=== PATIENT | female | born 1975 | race Caucasian/White ===

== ENCOUNTER 2019-02-25 21:31 | Inpatient (IN) | payer MEDICARE, MEDICAID ==
[~2019-02-25] VITALS: Ht 170.2 cm; Wt 74.3 kg
[2019-02-25 21:30] VITALS: BP 133/81
[~2019-02-25 21:31] MED LIST: AMLO-511 PO; ATOR20TA86 PO; CARV12 PO; CINA30 PO; DSS100 PO; FOLI0.8T2 PO; HYDR-4455 PO; LEVO100 PO; OMEP20 PO; ONDA4 PO; SEVEC800 PO; SUCR1TAB PO
[2019-02-26] MEDS ORDERED: HYDROmorphone HCL 2 MG TABLET PO PRN (01:00)
[2019-02-26] MEDS ORDERED: MAGNESIUM HYDROXIDE SUSPENSION 30 ML UDCUP PO PRN (01:00)
[2019-02-26] MEDS ORDERED: ACETAMINOPHEN 325 MG TABLET PO PRN ×2 (01:00→07:30)
[2019-02-26] MEDS: ONDANSETRON HCL 4 MG/2 ML VIAL IVP PRN ×3 (01:05→20:05)
[2019-02-26 03:54] VITALS: BP 129/57
[2019-02-26] MEDS: HYDROmorphone 2 MG/ML SYRINGE IVP PRN ×3 (06:55→20:05)
[2019-02-26] MEDS ORDERED: BISACODYL 10 MG RECTAL RECTAL SUPPOSITORY PR PRN (07:30)
[2019-02-26] MEDS ORDERED: ZOLPIDEM TARTRATE 5 MG TABLET PO PRN (07:30)
[2019-02-26] MEDS ORDERED: OxyCODONE HCL/ACETAMINOPHEN 5-325 MG TABLET PO PRN (07:30)
[2019-02-26] MEDS ORDERED: ALBUTEROL SULFATE 2.5 MG/0.5 ML NEB SOLUTION NEB PRN (07:30)
[2019-02-26] MEDS ORDERED: IPRATROPIUM BROMIDE 0.5 MG/2.5 ML NEB SOLUTION NEB PRN (07:30)
[2019-02-26 07:40] VITALS: BP 105/50
[2019-02-26 08:19] LABS: GLUCOMETER DEV NAME(LOC) 5N.1; GLUCOSE,POINT OF CARE 98 MG/DL (70-110)
[2019-02-26 08:35] LABS: BASOPHILS % (AUTO) 1.1 % (0.0-2.0); HEMATOCRIT 34.1 % (36-46); HEMOGLOBIN 11.6 g/dL (12.0-16.0); LYMPHOCYTES # (AUTO) 0.9 K/uL (1.0-4.8); LYMPHOCYTES % (AUTO) 21.7 % (22.0-44.0); MEAN CORPUSCULAR HGB CONC 34.1 G/dL (31.0-37.0); MEAN CORPUSCULAR VOLUME 94 fL (80-100); MONOCYTES # (AUTO) 0.5 K/uL (0.1-1.0); NEUTROPHILS # (AUTO) 2.7 K/uL (1.8-7.7); NEUTROPHILS % (AUTO) 63.2 % (40.0-70.0); PLATELET COUNT (AUTO) 100 K/uL (150-450); RED BLOOD CELL COUNT(AUTO) 3.63 MIL/uL (4.00-5.20); RED CELL DISTRIBUTION WIDTH 14.5 % (11.5-14.5)
[2019-02-26 08:52] LABS: ALBUMIN 3.2 g/dL (3.4-5.0); BILIRUBIN,TOTAL 0.7 mg/dL (0.1-1.0); CREATININE 8.12 mg/dL (0.60-1.30); MAGNESIUM 1.8 mg/dL (1.80-2.40); PHOSPHORUS 4.3 mg/dL (2.5-4.9); POTASSIUM 4.4 mmol/L (3.5-5.1); TOTAL PROTEIN, SERUM 7.4 g/dL (6.4-8.2)
[2019-02-26] MEDS: CARVEDILOL 12.5 MG TABLET PO SCH ×2 (09:00→20:03)
[2019-02-26] MEDS ORDERED: HEPARIN SODIUM,PORCINE 5,000 UNITS/ML VIAL SQ SCH (09:00)
[2019-02-26] MEDS: AmLODIPine BESYLATE 5 MG TABLET PO SCH (09:00)
[2019-02-26] MEDS: DOCUSATE SODIUM 100 MG CAPSULE PO SCH ×2 (09:33→20:04)
[2019-02-26] MEDS: SUCRALFATE 1 GM TABLET PO SCH ×4 (09:33→20:03)
[2019-02-26] MEDS: FAMOTIDINE 20 MG TABLET PO SCH (09:33)
[2019-02-26] MEDS: VITAMIN B COMP/VIT C/FOLIC ACID CAPSULE PO SCH (09:38)
[2019-02-26] MEDS ORDERED: PARICALCITOL 5 MCG/1 ML VIAL IVP SCH (12:00)
[2019-02-26 12:02] VITALS: BP 110/54
[2019-02-26] MEDS: SEVELAMER CARBONATE 800 MG TABLET PO SCH ×2 (12:19→17:39)
[2019-02-26] MEDS: POLYETHYLENE GLYCOL 3350 17 GM PACKET PO SCH (15:22)
[2019-02-26 15:45] VITALS: BP 117/57
[2019-02-26 19:51] VITALS: BP 126/68
[2019-02-26] MEDS ORDERED: ATORVASTATIN CALCIUM 20 MG TABLET PO SCH (21:00)
[2019-02-27 00:21] VITALS: BP 123/66
[2019-02-27 04:27] VITALS: BP 119/57
[2019-02-27 06:30] LABS: EOSINOPHILS % (AUTO) 3.3 % (1.0-6.0); HEMATOCRIT 32.2 % (36-46); HEMOGLOBIN 11.2 g/dL (12.0-16.0); LYMPHOCYTES % (AUTO) 17.7 % (22.0-44.0); MEAN CORPUSCULAR HEMOGLOBIN 32.4 pg (26.0-34.0); MEAN CORPUSCULAR HGB CONC 34.7 G/dL (31.0-37.0); MEAN CORPUSCULAR VOLUME 93 fL (80-100); MONOCYTES # (AUTO) 0.5 K/uL (0.1-1.0); MONOCYTES % (AUTO) 8.5 % (2.0-9.0); NEUTROPHILS # (AUTO) 3.8 K/uL (1.8-7.7); NEUTROPHILS % (AUTO) 69.5 % (40.0-70.0); RED BLOOD CELL COUNT(AUTO) 3.46 MIL/uL (4.00-5.20); RED CELL DISTRIBUTION WIDTH 14.1 % (11.5-14.5)
[2019-02-27] MEDS ORDERED: LEVOTHYROXINE SODIUM 100 MCG TABLET PO SCH (06:30)
[2019-02-27 06:48] LABS: ALBUMIN 3.1 g/dL (3.4-5.0); BILIRUBIN,TOTAL 0.8 mg/dL (0.1-1.0); CALCIUM, TOTAL 7.7 mg/dL (8.8-10.5); CREATININE 10.59 mg/dL (0.60-1.30); PHOSPHORUS 4.3 mg/dL (2.5-4.9); POTASSIUM 5.2 mmol/L (3.5-5.1); TOTAL PROTEIN, SERUM 7.2 g/dL (6.4-8.2)
[2019-02-27 07:32] LABS: PLATELET COUNT (AUTO) 91 K/uL (150-450); PLATELET MORPHOLOGY COMMENT LARGE PLTS PRESENT
[2019-02-27 07:33] VITALS: BP 121/70
[2019-02-27] MEDS: DOCUSATE SODIUM 100 MG CAPSULE PO SCH (07:41)
[2019-02-27] MEDS: POLYETHYLENE GLYCOL 3350 17 GM PACKET PO SCH (07:41)
[2019-02-27] MEDS ORDERED: CINACALCET HCL 30 MG TABLET PO SCH (08:00)
[2019-02-27] MEDS: HYDROmorphone 2 MG/ML SYRINGE IVP PRN (08:51)
[2019-02-27] MEDS: AmLODIPine BESYLATE 5 MG TABLET PO SCH (08:52)
[2019-02-27] MEDS: SUCRALFATE 1 GM TABLET PO SCH ×3 (08:52→15:47)
[2019-02-27] MEDS: VITAMIN B COMP/VIT C/FOLIC ACID CAPSULE PO SCH (08:52)
[2019-02-27] MEDS: CARVEDILOL 12.5 MG TABLET PO SCH (08:56)
[2019-02-27] MEDS: FAMOTIDINE 20 MG TABLET PO SCH (08:59)
[2019-02-27] MEDS ORDERED: PARICALCITOL 5 MCG/1 ML VIAL IVP SCH (09:00)
[2019-02-27] MEDS: ONDANSETRON HCL 4 MG/2 ML VIAL IVP PRN (09:00)
[2019-02-27] MEDS: SEVELAMER CARBONATE 800 MG TABLET PO SCH ×3 (09:00→18:00)
[2019-02-27 11:34] VITALS: BP 99/59
[2019-02-27] MEDS ORDERED: LIDOCAINE/PF 1% 2 ML VIAL IM ONE (19:24)
== END 2019-02-27 19:25 | disposition home or self-care (01) | DRG 760 ==
LOC: 5N 21:35
PROVIDERS: ADMIT Internal Medicine; ATTEND Internal Medicine
PROC: 5A1D70Z Performance of Urinary Filtration, Intermittent, Less than 6 Hours Per Day (ICD-10-PCS; principal; 2019-02-27)
DX: N93.9 Abnormal uterine and vaginal bleeding, unspecified (principal); N18.6 End stage renal disease; I13.2 Hypertensive heart and chronic kidney disease with heart failure and with stage 5 chronic kidney disease, or end stage renal disease; N02.9 Recurrent and persistent hematuria with unspecified morphologic changes; N12 Tubulo-interstitial nephritis, not specified as acute or chronic; E46 Unspecified protein-calorie malnutrition; E87.1 Hypo-osmolality and hyponatremia; R64 Cachexia; N25.81 Secondary hyperparathyroidism of renal origin; O03.83 Metabolic disorder following complete or unspecified spontaneous abortion; K21.9 Gastro-esophageal reflux disease without esophagitis; E78.5 Hyperlipidemia, unspecified; E03.9 Hypothyroidism, unspecified; E83.51 Hypocalcemia; D63.8 Anemia in other chronic diseases classified elsewhere; E87.5 Hyperkalemia; D25.9 Leiomyoma of uterus, unspecified; E83.39 Other disorders of phosphorus metabolism; F41.9 Anxiety disorder, unspecified; F91.9 Conduct disorder, unspecified; G47.00 Insomnia, unspecified; G89.4 Chronic pain syndrome; I50.9 Heart failure, unspecified; R62.7 Adult failure to thrive; Z82.49 Family history of ischemic heart disease and other diseases of the circulatory system; Z82.71 Family history of polycystic kidney; Z87.440 Personal history of urinary (tract) infections; Z99.2 Dependence on renal dialysis
CPT/HCPCS: 83735; 84100; 87081; 87340; G0378; J1170; J1644; J2405; J2501; J3490

== ENCOUNTER 2019-05-21 10:44 | Emergency (ER) | payer MEDICARE, MEDICAID ==
[~2019-05-21] VITALS: Ht 170.2 cm; Wt 75.0 kg
[~2019-05-21 10:44] MED LIST changes: -AMLO-511 PO; +AMLO5TAB9 PO; -CINA30 PO; -HYDR-4455 PO; -ONDA4 PO; +SEVE800T17 PO; -SEVEC800 PO; -SUCR1TAB PO
[2019-05-21 13:42] LABS: BASOPHILS % (AUTO) 1.1 % (0.0-2.0); EOSINOPHILS % (AUTO) 3.1 % (1.0-6.0); HEMATOCRIT 35.4 % (36-46); LYMPHOCYTES # (AUTO) 1.4 K/uL (1.0-4.8); LYMPHOCYTES % (AUTO) 20.9 % (22.0-44.0); MEAN CORPUSCULAR HEMOGLOBIN 33.5 pg (26.0-34.0); MEAN CORPUSCULAR HGB CONC 33.8 G/dL (31.0-37.0); MEAN CORPUSCULAR VOLUME 99 fL (80-100); MONOCYTES # (AUTO) 0.5 K/uL (0.1-1.0); MONOCYTES % (AUTO) 8.1 % (2.0-9.0); NEUTROPHILS # (AUTO) 4.4 K/uL (1.8-7.7); NEUTROPHILS % (AUTO) 66.8 % (40.0-70.0); PLATELET COUNT (AUTO) 209 K/uL (150-450); RED BLOOD CELL COUNT(AUTO) 3.57 MIL/uL (4.00-5.20); RED CELL DISTRIBUTION WIDTH 14.9 % (11.5-14.5)
[2019-05-21 13:43] LABS: ANION GAP 6 mmol/L (8-16); CALCIUM, TOTAL 9.3 mg/dL (8.8-10.5); CARBON DIOXIDE 35 mmol/L (22-29); CHLORIDE 95 mmol/L (98-107); GLOMERULAR FILTR. RATE CALC 5 mL/min (>60); GLUCOSE,RANDOM 97 mg/dL (70-110); POTASSIUM 4.2 mmol/L (3.5-5.1); SODIUM SERUM 136 mmol/L (136-145); UREA NITROGEN, BLOOD 31 mg/dL (7-18)
[2019-05-21 13:51] LABS: HCG,QUANTITATIVE < 1 mIU/mL (0-6)
[2019-05-21 17:05] LABS: APPEARANCE,URINE TURBID (CLEAR); GLUCOSE, URINE (UA) NEGATIVE (NEGATIVE); KETONES,URINE 40 mg/dL (NEGATIVE); LEUKOCYTE ESTERASE ,URINE LARGE (NEGATIVE); NITRATE,URINE POSITIVE (NEGATIVE); OCCULT BLOOD,URINE LARGE (NEGATIVE); PH,URINE 7.5 (5.0-8.0); PROTEIN,URINE SEE CONFIRM (NEGATIVE)
[2019-05-21 17:10] LABS: BILIRUBIN,URINE PRELIM. POSITIVE (NEGATIVE)
[2019-05-21 17:11] LABS: SULFOSALICYLIC ACID,URINE 4+ (Negative)
[2019-05-21 17:13] LABS: RBC,URINE Full Field /HPF (0-2)
[2019-05-21 17:15] LABS: BACTERIA,URINE Moderate /HPF (None Seen); SQUAMOUS EPITHELIAL CELL,UR Moderate /LPF (None Seen)
[2019-05-21 17:23] VITALS: BP 143/80
== END 2019-05-21 17:31 | disposition home or self-care (01) ==
LOC: EMS 10:45
DX: N39.0 Urinary tract infection, site not specified (principal); N39.43 Post-void dribbling; R31.0 Gross hematuria; E11.22 Type 2 diabetes mellitus with diabetic chronic kidney disease; I12.0 Hypertensive chronic kidney disease with stage 5 chronic kidney disease or end stage renal disease; N18.6 End stage renal disease; Z99.2 Dependence on renal dialysis; Z79.899 Other long term (current) drug therapy; Z88.5 Allergy status to narcotic agent; Z91.013 Allergy to seafood
CPT/HCPCS: 51701; 51702; 74176; 87086

== ENCOUNTER 2019-08-06 14:12 | Emergency (ER) | payer MEDICARE, MEDICAID ==
[~2019-08-06] VITALS: Ht 175.3 cm; Wt 80.0 kg
[2019-08-06 14:18] VITALS: BP 158/86
[2019-08-06 15:09] LABS: BASOPHILS % (AUTO) 1.4 % (0.0-2.0); EOSINOPHILS % (AUTO) 3.5 % (1.0-6.0); HEMATOCRIT 30.1 % (36-46); HEMOGLOBIN 10.4 g/dL (12.0-16.0); LYMPHOCYTES # (AUTO) 1.2 K/uL (1.0-4.8); LYMPHOCYTES % (AUTO) 28.9 % (22.0-44.0); MEAN CORPUSCULAR HEMOGLOBIN 33.6 pg (26.0-34.0); MEAN CORPUSCULAR HGB CONC 34.4 G/dL (31.0-37.0); MEAN CORPUSCULAR VOLUME 98 fL (80-100); MONOCYTES # (AUTO) 0.3 K/uL (0.1-1.0); MONOCYTES % (AUTO) 7.4 % (2.0-9.0); NEUTROPHILS # (AUTO) 2.4 K/uL (1.8-7.7); NEUTROPHILS % (AUTO) 58.8 % (40.0-70.0); PLATELET COUNT (AUTO) 155 K/uL (150-450); RED BLOOD CELL COUNT(AUTO) 3.08 MIL/uL (4.00-5.20)
[2019-08-06 15:18] LABS: ANION GAP 6 mmol/L (8-16); CALCIUM, TOTAL 8.5 mg/dL (8.8-10.5); CARBON DIOXIDE 33 mmol/L (22-29); CHLORIDE 100 mmol/L (98-107); GLOMERULAR FILTR. RATE CALC 6 mL/min (>60); GLUCOSE,RANDOM 94 mg/dL (70-110); POTASSIUM 4.3 mmol/L (3.5-5.1); SODIUM SERUM 139 mmol/L (136-145); UREA NITROGEN, BLOOD 26 mg/dL (7-18)
[2019-08-06 15:32] LABS: ALANINE AMINOTRANSFERASE 16 U/L (12-78); ALBUMIN 3.3 g/dL (3.4-5.0); ALKALINE PHOSPHATASE 76 U/L (46-116); ASPARTATE AMINOTRANSFERASE 21 U/L (15-37); BILIRUBIN,TOTAL 0.5 mg/dL (0.1-1.0); HCG,QUANTITATIVE < 1 mIU/mL (0-6); LIPASE 239 U/L (73-393); TOTAL PROTEIN, SERUM 7.5 g/dL (6.4-8.2)
== END 2019-08-06 17:30 | disposition left against medical advice (07) ==
LOC: EMS 14:15
DX: R07.89 Other chest pain (principal); Z53.21 Procedure and treatment not carried out due to patient leaving prior to being seen by health care provider
CPT/HCPCS: 93005

== ENCOUNTER 2019-09-10 13:36 | Inpatient (IN) | payer MEDICARE, MEDICAID ==
[~2019-09-10] VITALS: Ht 170.2 cm; Wt 78.0 kg
[2019-09-10 14:30] LABS: CALCIUM, TOTAL 8.5 mg/dL (8.8-10.5); CREATININE 13.42 mg/dL (0.60-1.30); POTASSIUM 5.3 mmol/L (3.5-5.1)
[2019-09-10 14:36] LABS: ALBUMIN 3.3 g/dL (3.4-5.0); BILIRUBIN,TOTAL 0.5 mg/dL (0.1-1.0); TOTAL PROTEIN, SERUM 7.3 g/dL (6.4-8.2)
[2019-09-10 14:44] LABS: EOSINOPHILS % (AUTO) 3.4 % (1.0-6.0); HEMATOCRIT 31.2 % (36-46); HEMOGLOBIN 10.8 g/dL (12.0-16.0); LYMPHOCYTES # (AUTO) 1.1 K/uL (1.0-4.8); LYMPHOCYTES % (AUTO) 20.2 % (22.0-44.0); MEAN CORPUSCULAR HEMOGLOBIN 33.8 pg (26.0-34.0); MEAN CORPUSCULAR HGB CONC 34.6 G/dL (31.0-37.0); MEAN CORPUSCULAR VOLUME 98 fL (80-100); MONOCYTES # (AUTO) 0.4 K/uL (0.1-1.0); NEUTROPHILS # (AUTO) 3.7 K/uL (1.8-7.7); NEUTROPHILS % (AUTO) 68.4 % (40.0-70.0); PLATELET COUNT (AUTO) 167 K/uL (150-450); RED BLOOD CELL COUNT(AUTO) 3.19 MIL/uL (4.00-5.20); RED CELL DISTRIBUTION WIDTH 13.9 % (11.5-14.5)
[2019-09-10] MEDS ORDERED: ONDANSETRON HCL 4 MG/2 ML VIAL IVP ONE (15:00)
[2019-09-10] MEDS ORDERED: ACETAMINOPHEN 500 MG TABLET PO ONE (15:00)
[2019-09-10] MEDS ORDERED: ONDANSETRON HCL 4 MG/2 ML VIAL IVP PRN (15:45)
[2019-09-10] MEDS ORDERED: ACETAMINOPHEN 325 MG TABLET PO PRN ×2 (15:45→20:15)
[2019-09-10] MEDS ORDERED: SODIUM CHLORIDE 0.9% 1,000 ML ONE ×2 (17:46→17:47)
[2019-09-10 19:54] LABS: GLUCOMETER DEV NAME(LOC) 5N.1; GLUCOSE,POINT OF CARE 124 MG/DL (70-110)
[2019-09-10] MEDS ORDERED: BISACODYL 10 MG RECTAL RECTAL SUPPOSITORY PR PRN (20:15)
[2019-09-10] MEDS ORDERED: MAGNESIUM HYDROXIDE SUSPENSION 30 ML UDCUP PO PRN (20:15)
[2019-09-10] MEDS ORDERED: LORazepam 2 MG/ML VIAL IVP PRN (20:15)
[2019-09-10] MEDS ORDERED: ZOLPIDEM TARTRATE 5 MG TABLET PO PRN (20:15)
[2019-09-10] MEDS ORDERED: DiphenhydrAMINE HCL 25 MG CAPSULE PO PRN (20:15)
[2019-09-10] MEDS: CARVEDILOL 12.5 MG TABLET PO SCH (21:45)
[2019-09-10] MEDS: DOCUSATE SODIUM 100 MG CAPSULE PO SCH (21:45)
[2019-09-10] MEDS: HYDROCODONE/ACETAMINOPHEN 5-325 MG TABLET PO SCH (21:46)
[2019-09-10] MEDS: ONDANSETRON HCL 4 MG/2 ML VIAL IVP PRN (22:01)
[2019-09-10 23:59] VITALS: BP 113/67
[2019-09-11] MEDS: HEPARIN SODIUM,PORCINE 5,000 UNITS/ML VIAL SQ SCH ×3 (00:04→16:00)
[2019-09-11] MEDS: HYDROCODONE/ACETAMINOPHEN 5-325 MG TABLET PO SCH ×5 (00:15→16:15)
[2019-09-11 04:06] VITALS: BP 130/63
[2019-09-11] MEDS: ONDANSETRON HCL 4 MG/2 ML VIAL IVP PRN (06:42)
[2019-09-11] MEDS: LEVOTHYROXINE SODIUM 100 MCG TABLET PO SCH (06:42)
[2019-09-11 07:02] LABS: BASOPHILS % (AUTO) 1.3 % (0.0-2.0); EOSINOPHILS % (AUTO) 4.1 % (1.0-6.0); HEMOGLOBIN 11.4 g/dL (12.0-16.0); LYMPHOCYTES # (AUTO) 1.3 K/uL (1.0-4.8); LYMPHOCYTES % (AUTO) 27.9 % (22.0-44.0); MEAN CORPUSCULAR HEMOGLOBIN 34.6 pg (26.0-34.0); MEAN CORPUSCULAR HGB CONC 35.7 G/dL (31.0-37.0); MEAN CORPUSCULAR VOLUME 97 fL (80-100); MONOCYTES # (AUTO) 0.3 K/uL (0.1-1.0); MONOCYTES % (AUTO) 6.8 % (2.0-9.0); NEUTROPHILS # (AUTO) 2.9 K/uL (1.8-7.7); NEUTROPHILS % (AUTO) 59.9 % (40.0-70.0); PLATELET COUNT (AUTO) 167 K/uL (150-450); RED CELL DISTRIBUTION WIDTH 13.8 % (11.5-14.5)
[2019-09-11 07:08] LABS: ALBUMIN 3.1 g/dL (3.4-5.0); CALCIUM, TOTAL 8.5 mg/dL (8.8-10.5); CREATININE 9.13 mg/dL (0.60-1.30); PHOSPHORUS 5.3 mg/dL (2.5-4.9)
[2019-09-11 07:43] VITALS: BP 131/69
[2019-09-11] MEDS ORDERED: CIPROFLOXACIN HCL 500 MG TABLET PO SCH (09:00)
[2019-09-11] MEDS: DOCUSATE SODIUM 100 MG CAPSULE PO SCH ×2 (09:00→20:18)
[2019-09-11] MEDS: CARVEDILOL 12.5 MG TABLET PO SCH ×2 (09:00→20:18)
[2019-09-11 11:24] VITALS: BP 133/79
[2019-09-11] MEDS: PANTOPRAZOLE SODIUM 40 MG DR TABLET PO SCH (13:15)
[2019-09-11] MEDS: AmLODIPine BESYLATE 5 MG TABLET PO SCH (13:15)
[2019-09-11] MEDS: VITAMIN B COMP/VIT C/FOLIC ACID CAPSULE PO SCH (13:15)
[2019-09-11] MEDS: LORazepam 2 MG/ML VIAL IVP SCH ×3 (13:15→20:18)
[2019-09-11] MEDS ORDERED: LIDOCAINE/PF 1% 2 ML VIAL IV ONE (14:34)
[2019-09-11 15:20] VITALS: BP 115/62
[2019-09-11 17:41] LABS: AMYLASE 119 U/L (25-115); LIPASE 131 U/L (73-393)
[2019-09-11] MEDS ORDERED: HYDROmorphone HCL 2 MG TABLET PO PRN (19:30)
[2019-09-11 19:55] VITALS: BP 136/71
[2019-09-12] MEDS: HEPARIN SODIUM,PORCINE 5,000 UNITS/ML VIAL SQ SCH ×4 (00:26→23:46)
[2019-09-12 00:30] VITALS: BP 115/64
[2019-09-12] MEDS: ONDANSETRON HCL 4 MG/2 ML VIAL IVP PRN ×2 (00:51→20:18)
[2019-09-12] MEDS: LORazepam 2 MG/ML VIAL IVP SCH ×5 (02:42→23:43)
[2019-09-12 04:20] VITALS: BP 123/60
[2019-09-12 05:15] LABS: APPEARANCE,URINE CLEAR (CLEAR); BILIRUBIN,URINE NEGATIVE (NEGATIVE); GLUCOSE, URINE (UA) NEGATIVE (NEGATIVE); KETONES,URINE NEGATIVE (NEGATIVE); LEUKOCYTE ESTERASE ,URINE NEGATIVE (NEGATIVE); NITRATE,URINE NEGATIVE (NEGATIVE); OCCULT BLOOD,URINE MODERATE (NEGATIVE); PROTEIN,URINE POS 1+ (NEGATIVE); UROBILINOGEN,URINE 0.2 mg/dL (<=1.0)
[2019-09-12 05:22] LABS: BACTERIA,URINE Rare /HPF (None Seen); RENAL EPITHELIAL CELLS,URINE Rare /LPF (None Seen); SQUAMOUS EPITHELIAL CELL,UR Few /LPF (None Seen)
[2019-09-12] MEDS: LEVOTHYROXINE SODIUM 100 MCG TABLET PO SCH (06:38)
[2019-09-12 07:44] VITALS: BP 124/68
[2019-09-12] MEDS: VITAMIN B COMP/VIT C/FOLIC ACID CAPSULE PO SCH (08:34)
[2019-09-12] MEDS: HYDROmorphone 2 MG/ML SYRINGE IVP PRN ×2 (08:35→20:22)
[2019-09-12] MEDS: PANTOPRAZOLE SODIUM 40 MG DR TABLET PO SCH (08:35)
[2019-09-12] MEDS: DOCUSATE SODIUM 100 MG CAPSULE PO SCH ×2 (08:35→20:16)
[2019-09-12] MEDS ORDERED: EPOETIN ALFA 10,000 UNITS/ML 2 ML VIAL SQ SCH (09:00)
[2019-09-12] MEDS ORDERED: PARICALCITOL 5 MCG/1 ML VIAL IVP PRN (09:00)
[2019-09-12] MEDS: CARVEDILOL 12.5 MG TABLET PO SCH ×2 (09:00→20:16)
[2019-09-12] MEDS ORDERED: CIPROFLOXACIN HCL 250 MG TABLET PO SCH (09:00)
[2019-09-12] MEDS: AmLODIPine BESYLATE 5 MG TABLET PO SCH (09:00)
[2019-09-12] MEDS ORDERED: LIDOCAINE/PF 1% 2 ML VIAL ID PRN (12:30)
[2019-09-12] MEDS: CIPROFLOXACIN 200 MG/D5% WATER 100 ML IV SCH (13:04)
[2019-09-12 16:37] VITALS: BP 142/71
[2019-09-12] MEDS ORDERED: LIDOCAINE/PF 1% 2 ML VIAL IM ONE (16:51)
[2019-09-12 19:55] VITALS: BP 124/66
[2019-09-12 23:45] VITALS: BP 103/48
[2019-09-13] MEDS: LORazepam 2 MG/ML VIAL IVP SCH ×3 (03:00→15:00)
[2019-09-13 05:09] VITALS: BP 103/56
[2019-09-13] MEDS: LEVOTHYROXINE SODIUM 100 MCG TABLET PO SCH (06:38)
[2019-09-13 07:23] VITALS: BP 116/67
[2019-09-13] MEDS: VITAMIN B COMP/VIT C/FOLIC ACID CAPSULE PO SCH (08:08)
[2019-09-13] MEDS: PANTOPRAZOLE SODIUM 40 MG DR TABLET PO SCH (08:08)
[2019-09-13] MEDS: CIPROFLOXACIN 200 MG/D5% WATER 100 ML IV SCH (08:08)
[2019-09-13] MEDS: HEPARIN SODIUM,PORCINE 5,000 UNITS/ML VIAL SQ SCH ×2 (08:08→16:00)
[2019-09-13] MEDS: DOCUSATE SODIUM 100 MG CAPSULE PO SCH (08:09)
[2019-09-13] MEDS: HYDROmorphone 2 MG/ML SYRINGE IVP PRN ×2 (08:09→14:39)
[2019-09-13] MEDS: ONDANSETRON HCL 4 MG/2 ML VIAL IVP PRN ×2 (08:09→14:38)
[2019-09-13] MEDS: CARVEDILOL 12.5 MG TABLET PO SCH (08:30)
[2019-09-13] MEDS: AmLODIPine BESYLATE 5 MG TABLET PO SCH (08:30)
[2019-09-13] MEDS ORDERED: [UNRECOGNIZED DRUG - REMARK] MISC SCH (09:00)
[2019-09-13 11:42] VITALS: BP 125/49
[2019-09-13 15:30] VITALS: BP 115/58
== END 2019-09-13 18:50 | disposition home or self-care (01) | DRG 640 ==
LOC: EMS 13:37 → 5N 16:15
PROVIDERS: ADMIT Internal Medicine; ATTEND Internal Medicine
PROC: 5A1D70Z Performance of Urinary Filtration, Intermittent, Less than 6 Hours Per Day (ICD-10-PCS; principal; 2019-09-12)
DX: E87.5 Hyperkalemia (principal); N18.6 End stage renal disease; N25.81 Secondary hyperparathyroidism of renal origin; R64 Cachexia; E46 Unspecified protein-calorie malnutrition; I13.11 Hypertensive heart and chronic kidney disease without heart failure, with stage 5 chronic kidney disease, or end stage renal disease; Z99.2 Dependence on renal dialysis; Z88.8 Allergy status to other drugs, medicaments and biological substances; Z91.013 Allergy to seafood; E03.9 Hypothyroidism, unspecified; Z87.440 Personal history of urinary (tract) infections; E83.51 Hypocalcemia; E83.39 Other disorders of phosphorus metabolism; F41.9 Anxiety disorder, unspecified; D63.1 Anemia in chronic kidney disease; R62.7 Adult failure to thrive; Z88.5 Allergy status to narcotic agent; Z91.19 Patient's noncompliance with other medical treatment and regimen; G89.4 Chronic pain syndrome; E87.70 Fluid overload, unspecified; Z68.26 Body mass index [BMI] 26.0-26.9, adult; G47.00 Insomnia, unspecified; E11.22 Type 2 diabetes mellitus with diabetic chronic kidney disease
CPT/HCPCS: 70450; 70490; 87081; 87340; 93005; J0744; J0885; J1170; J1644; J2060; J2405; J2501; J3490; J7030

== ENCOUNTER 2021-02-23 05:21 | Day surgery (SDC) | payer MEDICARE, MEDICAID ==
[~2021-02-23] VITALS: Ht 170.2 cm; Wt 67.0 kg
[~2021-02-23 05:21] MED LIST changes: +AMLO-257 PO; -AMLO5TAB9 PO; -ATOR20TA86 PO; -DSS100 PO; -OMEP20 PO; -SEVE800T17 PO; +SODIUM CHLORIDE 0.9% 1,000 ML ONE
[2021-02-23] MEDS ORDERED: MIDAZOLAM HCL 2 MG/2 ML VIAL IVP ONE (05:22)
[2021-02-23] MEDS ORDERED: FentaNYL CITRATE PF 100 MCG/2 ML VIAL IVP ONE (05:22)
[2021-02-23] MEDS ORDERED: LIDOCAINE/PF 2% 5 ML VIAL IM ONE (05:22)
[2021-02-23] MEDS ORDERED: CeFAZolin 1 GM/DEXTROSE 50 ML IV ONE ×2 (05:45→06:16)
[2021-02-23] MEDS ORDERED: SODIUM CHLORIDE 0.9% 1,000 ML IV ONE (06:00)
[2021-02-23 06:12] LABS: COVID AG,FIA SOURCE NASOPHARYNGEAL
[2021-02-23 06:15] LABS: BASOPHILS % (AUTO) 0.7 % (0.0-2.0); HEMOGLOBIN 11.8 g/dL (12.0-16.0); LYMPHOCYTES # (AUTO) 1.1 K/uL (1.0-4.8); LYMPHOCYTES % (AUTO) 22.1 % (22.0-44.0); MEAN CORPUSCULAR HEMOGLOBIN 32.7 pg (26.0-34.0); MEAN CORPUSCULAR HGB CONC 34.8 G/dL (31.0-37.0); MEAN CORPUSCULAR VOLUME 94 fL (80-100); MONOCYTES # (AUTO) 0.3 K/uL (0.1-1.0); MONOCYTES % (AUTO) 6.3 % (2.0-9.0); NEUTROPHILS # (AUTO) 3.3 K/uL (1.8-7.7); NEUTROPHILS % (AUTO) 67.9 % (40.0-70.0); PLATELET COUNT (AUTO) 109 K/uL (150-450); RED BLOOD CELL COUNT(AUTO) 3.62 MIL/uL (4.00-5.20); RED CELL DISTRIBUTION WIDTH 14.3 % (11.5-14.5)
[2021-02-23 06:41] LABS: CALCIUM, TOTAL 9.1 mg/dL (8.8-10.5); CREATININE 7.28 mg/dL (0.60-1.30); POTASSIUM 4.9 mmol/L (3.5-5.1)
[2021-02-23 06:44] LABS: PROTHROMBIN TIME 10.3 SEC (9.4-11.6)
[2021-02-23 06:47] LABS: ALBUMIN 3.4 g/dL (3.4-5.0); BILIRUBIN,TOTAL 0.8 mg/dL (0.1-1.0); TOTAL PROTEIN, SERUM 7.5 g/dL (6.4-8.2)
[2021-02-23] MEDS ORDERED: LIDOCAINE/PF 1% 30 ML VIAL ONE (06:53)
[2021-02-23] MEDS ORDERED: HEPARIN SODIUM,PORCINE 5,000 UNITS/ML VIAL ONE ×2 (06:53→08:13)
[2021-02-23] MEDS ORDERED: BACITRACIN 50,000 UNITS/VIAL ONE (06:54)
[2021-02-23] MEDS ORDERED: SODIUM CHLORIDE 0.9% 200 ML ONE (06:54)
[2021-02-23] MEDS ORDERED: SODIUM CHLORIDE 0.9% 500 ML IV ONE (06:54)
[2021-02-23] MEDS ORDERED: PROPOFOL 1000 MG/ISO-OSM 100 ML ONE (07:24)
[2021-02-23] MEDS ORDERED: CHLORHEXIDINE GLUCONATE 4% 118 ML TOPICAL LIQUID TP ONE (07:42)
[2021-02-23] MEDS ORDERED: SEVE800T17 PO (08:02)
[2021-02-23] MEDS ORDERED: FentaNYL CITRATE PF 100 MCG/2 ML VIAL IVP PRN (10:00)
[2021-02-23] MEDS ORDERED: OxyCODONE HCL/ACETAMINOPHEN 5-325 MG TABLET PO ONE (10:00)
[2021-02-23] MEDS ORDERED: OxyCODONE HCL/ACETAMINOPHEN 5-325 MG TABLET ONE (11:04)
[2021-02-23] MEDS ORDERED: OXYGEN THERAPY IH SCH (20:00)
== END 2021-02-23 13:07 | disposition home or self-care (01) ==
LOC: SURGERY 05:21
PROVIDERS: ATTEND Surgery
DX: I12.0 Hypertensive chronic kidney disease with stage 5 chronic kidney disease or end stage renal disease (principal); N18.6 End stage renal disease; D64.9 Anemia, unspecified; R10.2 Pelvic and perineal pain; G89.29 Other chronic pain; Z88.6 Allergy status to analgesic agent; Z91.013 Allergy to seafood; E78.5 Hyperlipidemia, unspecified; Z90.49 Acquired absence of other specified parts of digestive tract; Z98.890 Other specified postprocedural states
CPT/HCPCS: 36415; 36821; 80053; 84702; 85025; 85610; 85730; 87426; 93005; C9803; J0690; J1644; J2250; J2704; J3010; J3490 ×3; J7030; J7040; J7050

== ENCOUNTER 2022-03-14 09:08 | Inpatient (IN) | payer MEDICARE, MEDICAID ==
[~2022-03-14] VITALS: Ht 170.2 cm; Wt 80.0 kg
[~2022-03-14 09:08] MED LIST changes: -CARV12 PO; +SEVE800T17 PO; -SODIUM CHLORIDE 0.9% 1,000 ML ONE
[2022-03-14 09:42] LABS: BASOPHILS % (AUTO) 1.5 % (0.0-2.0); EOSINOPHILS % (AUTO) 3.3 % (1.0-6.0); HEMATOCRIT 31.9 % (36-46); HEMOGLOBIN 11.1 g/dL (12.0-16.0); LYMPHOCYTES # (AUTO) 0.9 K/uL (1.0-4.8); MEAN CORPUSCULAR HEMOGLOBIN 31.5 pg (26.0-34.0); MEAN CORPUSCULAR HGB CONC 34.8 G/dL (31.0-37.0); MEAN CORPUSCULAR VOLUME 91 fL (80-100); MONOCYTES # (AUTO) 0.3 K/uL (0.1-1.0); MONOCYTES % (AUTO) 5.7 % (2.0-9.0); NEUTROPHILS % (AUTO) 73.5 % (40.0-70.0); PLATELET COUNT (AUTO) 159 K/uL (150-450); RED BLOOD CELL COUNT(AUTO) 3.52 MIL/uL (4.00-5.20); RED CELL DISTRIBUTION WIDTH 16.1 % (11.5-14.5)
[2022-03-14 09:52] LABS: CALCIUM, TOTAL 8.5 mg/dL (8.8-10.5); CREATININE 11.7 mg/dL (0.60-1.30)
[2022-03-14 10:43] LABS: ALBUMIN 3.4 g/dL (3.4-5.0); BILIRUBIN,TOTAL 0.6 mg/dL (0.1-1.0); TOTAL PROTEIN, SERUM 8.2 g/dL (6.4-8.2)
[2022-03-14] MEDS ORDERED: ACETAMINOPHEN 500 MG TABLET PO ONE (10:45)
[2022-03-14] MEDS ORDERED: ONDANSETRON HCL 4 MG TABLET PO ONE (10:45)
[2022-03-14 10:47] LABS: COVID AG,FIA SOURCE NASOPHARYNGEAL
[2022-03-14 12:18] LABS: APPEARANCE,URINE HAZY (CLEAR); BILIRUBIN,URINE NEGATIVE (NEGATIVE); GLUCOSE, URINE (UA) NEGATIVE (NEGATIVE); KETONES,URINE NEGATIVE (NEGATIVE); LEUKOCYTE ESTERASE ,URINE SMALL (NEGATIVE); NITRATE,URINE NEGATIVE (NEGATIVE); OCCULT BLOOD,URINE LARGE (NEGATIVE); PH,URINE 8.5 (5.0-8.0); PROTEIN,URINE 30-70 mg/dL (NEGATIVE); SPECIFIC GRAVITIY, URINE 1.007 (1.003-1.030); UROBILINOGEN,URINE <=1.0 mg/dL (<=1.0)
[2022-03-14] MEDS ORDERED: LIDOCAINE 5% TRANSDERMAL PATCH TD ONE (13:15)
[2022-03-14 13:26] LABS: BACTERIA,URINE Few /HPF (None Seen); SQUAMOUS EPITHELIAL CELL,UR Few /LPF (None Seen); WBC,URINE 0-2 /HPF (0-5)
[2022-03-14] MEDS ORDERED: HYDROmorphone 2 MG/ML VIAL IVP PRN (13:30)
[2022-03-14] MEDS ORDERED: OxyCODONE HCL/ACETAMINOPHEN 5-325 MG TABLET PO PRN (13:30)
[2022-03-14] MEDS ORDERED: ACETAMINOPHEN 325 MG TABLET PO PRN (13:30)
[2022-03-14 15:36] VITALS: BP 127/71
[2022-03-14] MEDS: HEPARIN SODIUM,PORCINE 5,000 UNITS/ML VIAL SQ SCH (16:14)
[2022-03-14] MEDS: ONDANSETRON HCL 4 MG/2 ML VIAL IVP PRN ×2 (16:46→20:36)
[2022-03-14] MEDS ORDERED: SODIUM ZIRCONIUM CYCLOSILICATE 5 GM POWDER PACKET PO PRN (18:30)
[2022-03-14] MEDS ORDERED: DiphenhydrAMINE HCL 50 MG/ML VIAL IVP PRN (18:30)
[2022-03-14 20:16] VITALS: BP 158/86
[2022-03-14] MEDS: DOCUSATE SODIUM 100 MG CAPSULE PO SCH (20:35)
[2022-03-14] MEDS: DiphenhydrAMINE HCL 50 MG/ML VIAL IVP SCH (20:35)
[2022-03-14] MEDS: HYDROmorphone 2 MG/ML VIAL IVP PRN (20:36)
[2022-03-14] MEDS: DiphenhydrAMINE HCL 50 MG/ML VIAL IVP PRN (22:39)
[2022-03-15] VITALS (14 sets, daily range): BP systolic 111–205; BP diastolic 69–99
[2022-03-15] MEDS: HEPARIN SODIUM,PORCINE 5,000 UNITS/ML VIAL SQ SCH ×4 (00:46→22:51)
[2022-03-15] MEDS: ONDANSETRON HCL 4 MG/2 ML VIAL IVP PRN ×3 (00:58→20:22)
[2022-03-15] MEDS: HYDROmorphone 2 MG/ML VIAL IVP PRN ×5 (01:00→20:22)
[2022-03-15] MEDS: DiphenhydrAMINE HCL 50 MG/ML VIAL IVP PRN ×4 (05:34→22:51)
[2022-03-15] MEDS ORDERED: EPOETIN ALFA 10,000 UNITS/ML VIAL SQ SCH (09:00)
[2022-03-15] MEDS: PARICALCITOL 1 MCG CAPSULE PO SCH (09:12)
[2022-03-15] MEDS: FAMOTIDINE 20 MG TABLET PO SCH (09:12)
[2022-03-15] MEDS: DOCUSATE SODIUM 100 MG CAPSULE PO SCH ×2 (09:12→20:21)
[2022-03-15 15:59] LABS: CALCIUM, TOTAL 8.1 mg/dL (8.8-10.5); CREATININE 12.27 mg/dL (0.60-1.30); POTASSIUM 5.1 mmol/L (3.5-5.1)
[2022-03-15] MEDS ORDERED: LIDOCAINE/PF 1% 2 ML VIAL ID PRN (17:45)
[2022-03-15] MEDS ORDERED: DiphenhydrAMINE HCL 50 MG/ML VIAL IVP PRN ×3 (17:45→18:30)
[2022-03-15 17:57] LABS: CREATININE 6.39 mg/dL (0.60-1.30)
[2022-03-15] MEDS ORDERED: DiphenhydrAMINE HCL 50 MG/ML VIAL IM ONE (18:53)
[2022-03-15] MEDS ORDERED: LIDOCAINE/PF 1% 2 ML VIAL CAUDAL ONE (18:53)
[2022-03-15] MEDS: DiphenhydrAMINE HCL 50 MG/ML VIAL IVP SCH (20:22)
[2022-03-16 00:24] VITALS: BP 111/68
[2022-03-16] MEDS: HYDROmorphone 2 MG/ML VIAL IVP PRN ×3 (02:10→12:11)
[2022-03-16] MEDS: DiphenhydrAMINE HCL 50 MG/ML VIAL IVP PRN ×4 (03:43→17:38)
[2022-03-16] MEDS: ONDANSETRON HCL 4 MG/2 ML VIAL IVP PRN ×2 (03:43→12:50)
[2022-03-16 04:25] VITALS: BP 96/56
[2022-03-16] MEDS: FAMOTIDINE 20 MG TABLET PO SCH (08:48)
[2022-03-16] MEDS: HEPARIN SODIUM,PORCINE 5,000 UNITS/ML VIAL SQ SCH ×2 (08:48→16:00)
[2022-03-16] MEDS: DOCUSATE SODIUM 100 MG CAPSULE PO SCH (08:48)
[2022-03-16] MEDS: PARICALCITOL 1 MCG CAPSULE PO SCH (08:48)
[2022-03-16 08:53] VITALS: BP 117/60
[2022-03-16 12:46] VITALS: BP 122/72
[2022-03-16 16:45] VITALS: BP 129/76
== END 2022-03-16 18:10 | disposition home or self-care (01) | DRG 291 ==
LOC: EMS 09:10 → 5N 13:41
PROVIDERS: ADMIT Internal Medicine; ATTEND Internal Medicine
PROC: 5A1D70Z Performance of Urinary Filtration, Intermittent, Less than 6 Hours Per Day (ICD-10-PCS; principal; 2022-03-15)
DX: I13.2 Hypertensive heart and chronic kidney disease with heart failure and with stage 5 chronic kidney disease, or end stage renal disease (principal); N18.6 End stage renal disease; E46 Unspecified protein-calorie malnutrition; Q61.3 Polycystic kidney, unspecified; E83.51 Hypocalcemia; E88.09 Other disorders of plasma-protein metabolism, not elsewhere classified; G89.4 Chronic pain syndrome; E11.22 Type 2 diabetes mellitus with diabetic chronic kidney disease; D63.1 Anemia in chronic kidney disease; E03.9 Hypothyroidism, unspecified; E83.39 Other disorders of phosphorus metabolism; E87.6 Hypokalemia; L50.9 Urticaria, unspecified; F41.9 Anxiety disorder, unspecified; G47.00 Insomnia, unspecified; Z20.822 Contact with and (suspected) exposure to COVID-19; I50.9 Heart failure, unspecified; Z99.2 Dependence on renal dialysis; Z88.5 Allergy status to narcotic agent; Z91.013 Allergy to seafood; Z79.899 Other long term (current) drug therapy; Z82.49 Family history of ischemic heart disease and other diseases of the circulatory system; Z68.27 Body mass index [BMI] 27.0-27.9, adult; Z87.440 Personal history of urinary (tract) infections
CPT/HCPCS: 71045; 80048; 80053; 81001; 82550; 82565; 83880; 84443; 84484; 84520; 84702; 85025; 87081; 90935; 93005; 93306; 99285; J0885; J1170; J1200; J1644; J2405; J3490; Q0162; 36415-L1; 36415-TC

== ENCOUNTER 2022-05-28 15:46 | Emergency (ER) | payer MEDICARE, MEDICAID ==
[~2022-05-28] VITALS: Ht 170.2 cm; Wt 80.0 kg
[2022-05-28] MEDS ORDERED: ACETAMINOPHEN 500 MG TABLET PO ONE (22:15)
[2022-05-28 22:34] LABS: EOSINOPHILS % (AUTO) 1.4 % (1.0-6.0); HEMOGLOBIN 9.2 g/dL (12.0-16.0); LYMPHOCYTES # (AUTO) 0.9 K/uL (1.0-4.8); MONOCYTES # (AUTO) 0.3 K/uL (0.1-1.0); MONOCYTES % (AUTO) 8.7 % (2.0-9.0)
[2022-05-28 22:37] LABS: BASOPHILS % (AUTO) 0.9 % (0.0-2.0); HEMATOCRIT 27.7 % (36-46); LYMPHOCYTES % (AUTO) 22.3 % (22.0-44.0); MEAN CORPUSCULAR HEMOGLOBIN 30.2 pg (26.0-34.0); MEAN CORPUSCULAR HGB CONC 33.3 G/dL (31.0-37.0); MEAN CORPUSCULAR VOLUME 91 fL (80-100); NEUTROPHILS # (AUTO) 2.6 K/uL (1.8-7.7); NEUTROPHILS % (AUTO) 66.7 % (40.0-70.0); PLATELET COUNT (AUTO) 122 K/uL (150-450); RED BLOOD CELL COUNT(AUTO) 3.05 MIL/uL (4.00-5.20); RED CELL DISTRIBUTION WIDTH 17.2 % (11.5-14.5)
[2022-05-28 22:45] LABS: CALCIUM, TOTAL 8.5 mg/dL (8.8-10.5); CREATININE 13.62 mg/dL (0.60-1.30); POTASSIUM 5.4 mmol/L (3.5-5.1)
[2022-05-28 22:52] LABS: LACTIC ACID 0.9 mmol/L (0.4-2.0)
[2022-05-28 23:36] LABS: COVID AG,FIA SOURCE NASOPHARYNGEAL
[2022-05-28 23:55] LABS: INFLUENZA TYPE A NEGATIVE FOR TYPE A (NEGATIVE); INFLUENZA TYPE B NEGATIVE FOR TYPE B (NEGATIVE)
[2022-05-29 00:12] LABS: APPEARANCE,URINE HAZY (CLEAR); BILIRUBIN,URINE NEGATIVE (NEGATIVE); GLUCOSE, URINE (UA) TRACE mg/dL (NEGATIVE); KETONES,URINE NEGATIVE (NEGATIVE); LEUKOCYTE ESTERASE ,URINE MODERATE (NEGATIVE); NITRATE,URINE NEGATIVE (NEGATIVE); OCCULT BLOOD,URINE MODERATE (NEGATIVE); PROTEIN,URINE 100-200,SEE CONFIRM mg/dL (NEGATIVE); SPECIFIC GRAVITIY, URINE 1.009 (1.003-1.030); UROBILINOGEN,URINE <=1.0 mg/dL (<=1.0)
[2022-05-29 00:20] LABS: SULFOSALICYLIC ACID,URINE 1+ (Negative)
[2022-05-29 00:21] LABS: BACTERIA,URINE Moderate /HPF (None Seen); SQUAMOUS EPITHELIAL CELL,UR Many /LPF (None Seen)
[2022-05-29] MEDS ORDERED: LIDOCAINE/PF 1% 2 ML VIAL IM ONE (00:30)
[2022-05-29] MEDS ORDERED: CefTRIAXone SODIUM 1 GM/VIAL IM ONE (00:30)
[2022-05-29] MEDS ORDERED: CEPH-558 PO (00:42)
[2022-05-29] MEDS ORDERED: ACET-3385 PO (00:42)
[2022-05-29 00:54] VITALS: BP 135/72
== END 2022-05-29 01:20 | disposition home or self-care (01) ==
LOC: EMS 15:46
DX: N39.0 Urinary tract infection, site not specified (principal); M79.89 Other specified soft tissue disorders; E11.22 Type 2 diabetes mellitus with diabetic chronic kidney disease; I12.0 Hypertensive chronic kidney disease with stage 5 chronic kidney disease or end stage renal disease; N18.6 End stage renal disease; Z99.2 Dependence on renal dialysis; Z88.5 Allergy status to narcotic agent; Z91.013 Allergy to seafood; Z79.899 Other long term (current) drug therapy; Z20.822 Contact with and (suspected) exposure to COVID-19
CPT/HCPCS: 99285; 71045; 87426; 80048; 81001; 83605; 85025; 87804; 36415; 87086; 73630; 93005; 96372; J0696; J3490; 51701; 81002

== ENCOUNTER 2022-06-03 11:46 | Emergency (ER) | payer MEDICARE, MEDICAID ==
[~2022-06-03] VITALS: Ht 165.1 cm; Wt 72.7 kg
[~2022-06-03 11:46] MED LIST changes: +ACET-3385 PO; +CEPH-558 PO
[2022-06-03] MEDS ORDERED: LISI2.5T13 PO (12:29)
[2022-06-03] MEDS ORDERED: SERT-440 PO (12:29)
[2022-06-03] MEDS ORDERED: LEVO112T7 PO (12:29)
[2022-06-03 13:04] LABS: BASOPHILS % (AUTO) 0.7 % (0.0-2.0); HEMATOCRIT 32.8 % (36-46); HEMOGLOBIN 10.8 g/dL (12.0-16.0); LYMPHOCYTES # (AUTO) 0.8 K/uL (1.0-4.8); LYMPHOCYTES % (AUTO) 12.5 % (22.0-44.0); MEAN CORPUSCULAR HEMOGLOBIN 29.8 pg (26.0-34.0); MEAN CORPUSCULAR VOLUME 90 fL (80-100); MONOCYTES # (AUTO) 0.4 K/uL (0.1-1.0); MONOCYTES % (AUTO) 6.1 % (2.0-9.0); NEUTROPHILS # (AUTO) 5.4 K/uL (1.8-7.7); NEUTROPHILS % (AUTO) 79.7 % (40.0-70.0); PLATELET COUNT (AUTO) 168 K/uL (150-450); RED BLOOD CELL COUNT(AUTO) 3.63 MIL/uL (4.00-5.20)
[2022-06-03 13:15] LABS: CREATININE 11.5 mg/dL (0.60-1.30); POTASSIUM 4.5 mmol/L (3.5-5.1)
[2022-06-03 13:27] LABS: COVID AG,FIA SOURCE NASAL SWAB
[2022-06-03 13:36] LABS: ALBUMIN 3.1 g/dL (3.4-5.0); BILIRUBIN,TOTAL 0.5 mg/dL (0.1-1.0); TOTAL PROTEIN, SERUM 8.4 g/dL (6.4-8.2)
[2022-06-03 14:12] LABS: INFLUENZA TYPE A NEGATIVE FOR TYPE A (NEGATIVE); INFLUENZA TYPE B NEGATIVE FOR TYPE B (NEGATIVE)
[2022-06-03 15:03] VITALS: BP 126/73
[2022-06-03 15:18] LABS: APPEARANCE,URINE HAZY (CLEAR); BILIRUBIN,URINE NEGATIVE (NEGATIVE); GLUCOSE, URINE (UA) NEGATIVE (NEGATIVE); KETONES,URINE NEGATIVE (NEGATIVE); LEUKOCYTE ESTERASE ,URINE SMALL (NEGATIVE); NITRATE,URINE NEGATIVE (NEGATIVE); OCCULT BLOOD,URINE MODERATE (NEGATIVE); PROTEIN,URINE 30-70 mg/dL (NEGATIVE); SPECIFIC GRAVITIY, URINE 1.002 (1.003-1.030); UROBILINOGEN,URINE <=1.0 mg/dL (<=1.0)
[2022-06-03 16:17] LABS: SQUAMOUS EPITHELIAL CELL,UR Many /LPF (None Seen)
[2022-06-03 16:19] LABS: RBC,URINE 0-2 /HPF (0-2)
[2022-06-03 16:25] LABS: BACTERIA,URINE Rare /HPF (None Seen)
== END 2022-06-03 17:44 | disposition home or self-care (01) ==
LOC: EMS 11:47
DX: R11.2 Nausea with vomiting, unspecified (principal); Z20.822 Contact with and (suspected) exposure to COVID-19; I12.0 Hypertensive chronic kidney disease with stage 5 chronic kidney disease or end stage renal disease; E11.22 Type 2 diabetes mellitus with diabetic chronic kidney disease; N18.6 End stage renal disease; Z99.2 Dependence on renal dialysis; R50.9 Fever, unspecified; R51.9 Headache, unspecified; R10.30 Lower abdominal pain, unspecified; R19.7 Diarrhea, unspecified; Z90.49 Acquired absence of other specified parts of digestive tract; Z88.1 Allergy status to other antibiotic agents
CPT/HCPCS: 80053; 81001; 83690; 84484; 84702; 85025; 87804; 93005; 99284

== ENCOUNTER 2022-06-15 05:32 | Inpatient (IN) | payer MEDICARE, MEDICAID ==
[~2022-06-15] VITALS: Ht 175.3 cm; Wt 80.0 kg
[2022-06-15] VITALS (11 sets, daily range): BP systolic 122–169; BP diastolic 76–105
[~2022-06-15 05:32] MED LIST changes: -LEVO100 PO; +LEVO112T7 PO; +LISI2.5T13 PO; +SERT-440 PO
[2022-06-15] MEDS ORDERED: ONDANSETRON HCL 4 MG/2 ML VIAL IVP ONE (06:45)
[2022-06-15] MEDS ORDERED: ACETAMINOPHEN 1000 MG/ISO-OSM 100 ML IV ONE (06:45)
[2022-06-15 06:50] LABS: COVID AG,FIA SOURCE NASOPHARYNGEAL
[2022-06-15 06:53] LABS: BASOPHILS % (AUTO) 0.5 % (0.0-2.0); EOSINOPHILS % (AUTO) 0.9 % (1.0-6.0); HEMATOCRIT 30.1 % (36-46); HEMOGLOBIN 9.8 g/dL (12.0-16.0); LYMPHOCYTES # (AUTO) 0.9 K/uL (1.0-4.8); LYMPHOCYTES % (AUTO) 11.6 % (22.0-44.0); MEAN CORPUSCULAR HEMOGLOBIN 29.7 pg (26.0-34.0); MEAN CORPUSCULAR HGB CONC 32.7 G/dL (31.0-37.0); MEAN CORPUSCULAR VOLUME 91 fL (80-100); MONOCYTES # (AUTO) 0.3 K/uL (0.1-1.0); MONOCYTES % (AUTO) 4.5 % (2.0-9.0); NEUTROPHILS % (AUTO) 82.5 % (40.0-70.0); PLATELET COUNT (AUTO) 169 K/uL (150-450); RED BLOOD CELL COUNT(AUTO) 3.32 MIL/uL (4.00-5.20); RED CELL DISTRIBUTION WIDTH 17.5 % (11.5-14.5)
[2022-06-15 07:11] LABS: ANION GAP 8 mmol/L (8-16); CARBON DIOXIDE 32 mmol/L (22-29); CHLORIDE 92 mmol/L (98-107); CREATININE 11.19 mg/dL (0.60-1.30); GLUCOSE,RANDOM 96 mg/dL (70-110); POTASSIUM 4.4 mmol/L (3.5-5.1); SODIUM SERUM 132 mmol/L (136-145); UREA NITROGEN, BLOOD 51 mg/dL (7-18)
[2022-06-15 07:13] LABS: GLOMERULAR FILTR. RATE CALC 4 mL/min (>60)
[2022-06-15 07:26] LABS: ALANINE AMINOTRANSFERASE 11 U/L (12-78); ALBUMIN 2.7 g/dL (3.4-5.0); ALKALINE PHOSPHATASE 91 U/L (46-116); ASPARTATE AMINOTRANSFERASE 16 U/L (15-37); BILIRUBIN,TOTAL 0.4 mg/dL (0.1-1.0); HCG,QUANTITATIVE 1 mIU/mL (0-6); LIPASE 419 U/L (73-393); TOTAL PROTEIN, SERUM 7.8 g/dL (6.4-8.2)
[2022-06-15] MEDS ORDERED: ACETAMINOPHEN 325 MG TABLET PO PRN ×2 (09:15→15:15)
[2022-06-15] MEDS ORDERED: 0.9% SODIUM CHLORIDE 10 ML SYRINGE IVP PRN (09:15)
[2022-06-15] MEDS ORDERED: ONDANSETRON HCL 4 MG/2 ML VIAL IVP PRN (09:15)
[2022-06-15 09:19] LABS: APPEARANCE,URINE HAZY (CLEAR); BILIRUBIN,URINE NEGATIVE (NEGATIVE); GLUCOSE, URINE (UA) TRACE mg/dL (NEGATIVE); KETONES,URINE NEGATIVE (NEGATIVE); LEUKOCYTE ESTERASE ,URINE TRACE (NEGATIVE); NITRATE,URINE NEGATIVE (NEGATIVE); OCCULT BLOOD,URINE LARGE (NEGATIVE); PROTEIN,URINE 30-70 mg/dL (NEGATIVE); SPECIFIC GRAVITIY, URINE 1.007 (1.003-1.030); UROBILINOGEN,URINE <=1.0 mg/dL (<=1.0)
[2022-06-15] MEDS ORDERED: DiphenhydrAMINE HCL 25 MG CAPSULE PO ONE ×2 (09:30→09:45)
[2022-06-15 10:02] LABS: BACTERIA,URINE Moderate /HPF (None Seen); SQUAMOUS EPITHELIAL CELL,UR Moderate /LPF (None Seen); WBC,URINE 0-2 /HPF (0-5)
[2022-06-15 11:25] LABS: C.DIFF GDH ANTIGEN, Stool Positive (Negative); C.DIFF TOXINS A&B, Stool Negative (Negative)
[2022-06-15] MEDS ORDERED: BISACODYL 10 MG RECTAL RECTAL SUPPOSITORY PR PRN (15:15)
[2022-06-15] MEDS ORDERED: ZOLPIDEM TARTRATE 5 MG TABLET PO PRN (15:15)
[2022-06-15] MEDS ORDERED: MAGNESIUM HYDROXIDE SUSPENSION 30 ML UDCUP PO PRN (15:15)
[2022-06-15] MEDS ORDERED: PRAMOXINE HCL/CALAMINE 177 ML BOTTLE TP PRN (15:15)
[2022-06-15] MEDS: HEPARIN SODIUM,PORCINE 5,000 UNITS/ML VIAL SQ SCH ×2 (15:43→23:33)
[2022-06-15] MEDS: HYDROmorphone 2 MG/ML VIAL IVP PRN ×2 (15:44→22:08)
[2022-06-15] MEDS ORDERED: SODIUM CHLORIDE 0.9% 1,000 ML IV ONE (15:45)
[2022-06-15] MEDS ORDERED: DiphenhydrAMINE HCL 50 MG/ML VIAL IVP ONE (17:15)
[2022-06-15] MEDS: SEVELAMER CARBONATE 800 MG TABLET PO SCH (18:00)
[2022-06-15] MEDS: DOCUSATE SODIUM 100 MG CAPSULE PO SCH (22:07)
[2022-06-15] MEDS: ONDANSETRON HCL 4 MG/2 ML VIAL IVP PRN (22:23)
[2022-06-15] MEDS: DiphenhydrAMINE HCL 50 MG/ML VIAL IVP PRN (22:23)
[2022-06-15] MEDS: MetroNIDAZOLE 500 MG TABLET PO SCH (23:33)
[2022-06-16] MEDS: OxyCODONE HCL/ACETAMINOPHEN 5-325 MG TABLET PO PRN (01:33)
[2022-06-16 04:11] VITALS: BP 127/86
[2022-06-16] MEDS: HYDROmorphone 2 MG/ML VIAL IVP PRN ×3 (05:14→23:44)
[2022-06-16] MEDS: ONDANSETRON HCL 4 MG/2 ML VIAL IVP PRN ×3 (05:14→20:07)
[2022-06-16] MEDS: LEVOTHYROXINE SODIUM 112 MCG TABLET PO SCH (06:13)
[2022-06-16 07:12] LABS: ALBUMIN 2.6 g/dL (3.4-5.0); BILIRUBIN,TOTAL 0.5 mg/dL (0.1-1.0); CALCIUM, TOTAL 8.9 mg/dL (8.8-10.5); CREATININE 7.49 mg/dL (0.60-1.30); POTASSIUM 4.4 mmol/L (3.5-5.1); TOTAL PROTEIN, SERUM 7.7 g/dL (6.4-8.2)
[2022-06-16 07:58] VITALS: BP 128/72
[2022-06-16] MEDS: SEVELAMER CARBONATE 800 MG TABLET PO SCH ×3 (08:00→18:00)
[2022-06-16] MEDS: HEPARIN SODIUM,PORCINE 5,000 UNITS/ML VIAL SQ SCH ×3 (08:23→23:43)
[2022-06-16] MEDS: PANTOPRAZOLE SODIUM 40 MG DR TABLET PO SCH (08:24)
[2022-06-16] MEDS: MetroNIDAZOLE 500 MG TABLET PO SCH ×2 (08:24→16:18)
[2022-06-16] MEDS: SERTRALINE HCL 100 MG TABLET PO SCH (08:24)
[2022-06-16] MEDS: AmLODIPine BESYLATE 5 MG TABLET PO SCH (08:25)
[2022-06-16] MEDS: DOCUSATE SODIUM 100 MG CAPSULE PO SCH ×2 (09:00→20:15)
[2022-06-16] MEDS: PARICALCITOL 1 MCG CAPSULE PO SCH (09:00)
[2022-06-16 15:40] VITALS: BP 137/89
[2022-06-16 19:12] VITALS: BP 135/79
[2022-06-16] MEDS: DiphenhydrAMINE HCL 50 MG/ML VIAL IVP PRN (20:07)
[2022-06-17 03:43] VITALS: BP 139/85
[2022-06-17] MEDS: LEVOTHYROXINE SODIUM 112 MCG TABLET PO SCH (06:02)
[2022-06-17 07:01] LABS: CALCIUM, TOTAL 8.8 mg/dL (8.8-10.5); CREATININE 9.88 mg/dL (0.60-1.30); POTASSIUM 4.7 mmol/L (3.5-5.1)
[2022-06-17 08:06] VITALS: BP 140/84
[2022-06-17] MEDS: DOCUSATE SODIUM 100 MG CAPSULE PO SCH ×2 (09:00→20:51)
[2022-06-17] MEDS: HYDROmorphone 2 MG/ML VIAL IVP PRN ×3 (09:16→21:36)
[2022-06-17] MEDS: ONDANSETRON HCL 4 MG/2 ML VIAL IVP PRN ×3 (09:17→21:37)
[2022-06-17] MEDS: AmLODIPine BESYLATE 5 MG TABLET PO SCH (09:20)
[2022-06-17] MEDS: SEVELAMER CARBONATE 800 MG TABLET PO SCH ×3 (09:20→17:40)
[2022-06-17] MEDS: HEPARIN SODIUM,PORCINE 5,000 UNITS/ML VIAL SQ SCH ×2 (09:20→15:26)
[2022-06-17] MEDS: PANTOPRAZOLE SODIUM 40 MG DR TABLET PO SCH (09:20)
[2022-06-17] MEDS: SERTRALINE HCL 100 MG TABLET PO SCH (09:20)
[2022-06-17] MEDS: PARICALCITOL 1 MCG CAPSULE PO SCH (09:21)
[2022-06-17] MEDS: MetroNIDAZOLE 500 MG TABLET PO SCH ×3 (09:21→15:26)
[2022-06-17] MEDS: DiphenhydrAMINE HCL 25 MG CAPSULE PO PRN ×2 (09:27→15:28)
[2022-06-17] MEDS: OxyCODONE HCL/ACETAMINOPHEN 5-325 MG TABLET PO PRN (14:30)
[2022-06-17 15:08] VITALS: BP 132/79
[2022-06-17 20:06] VITALS: BP 131/76
[2022-06-17] MEDS: DiphenhydrAMINE HCL 50 MG/ML VIAL IVP PRN (21:36)
[2022-06-18] VITALS (11 sets, daily range): BP systolic 128–150; BP diastolic 74–94
[2022-06-18] MEDS: MetroNIDAZOLE 500 MG TABLET PO SCH ×3 (00:48→16:50)
[2022-06-18] MEDS: HEPARIN SODIUM,PORCINE 5,000 UNITS/ML VIAL SQ SCH ×3 (00:49→16:49)
[2022-06-18] MEDS: HYDROmorphone 2 MG/ML VIAL IVP PRN ×3 (03:46→16:50)
[2022-06-18] MEDS: ONDANSETRON HCL 4 MG/2 ML VIAL IVP PRN ×3 (03:46→16:50)
[2022-06-18] MEDS: DiphenhydrAMINE HCL 25 MG CAPSULE PO PRN (03:47)
[2022-06-18] MEDS: LEVOTHYROXINE SODIUM 112 MCG TABLET PO SCH (06:11)
[2022-06-18 08:04] LABS: CALCIUM, TOTAL 8.7 mg/dL (8.8-10.5); CREATININE 12.33 mg/dL (0.60-1.30)
[2022-06-18] MEDS ORDERED: EPOETIN ALFA 10,000 UNITS/ML VIAL SQ SCH (09:00)
[2022-06-18] MEDS: SEVELAMER CARBONATE 800 MG TABLET PO SCH ×2 (09:30→12:00)
[2022-06-18] MEDS: AmLODIPine BESYLATE 5 MG TABLET PO SCH (09:30)
[2022-06-18] MEDS: DOCUSATE SODIUM 100 MG CAPSULE PO SCH (09:30)
[2022-06-18] MEDS: SERTRALINE HCL 100 MG TABLET PO SCH (09:30)
[2022-06-18] MEDS: PARICALCITOL 1 MCG CAPSULE PO SCH (09:30)
[2022-06-18] MEDS: PANTOPRAZOLE SODIUM 40 MG DR TABLET PO SCH (09:30)
[2022-06-18] MEDS ORDERED: SODIUM CHLORIDE 0.9% 2,000 ML ONE (10:21)
[2022-06-18] MEDS ORDERED: METR500 PO (12:52)
[2022-06-18] MEDS ORDERED: LIDOCAINE/PF 1% 2 ML VIAL CAUDAL ONE (16:45)
[2022-06-18] MEDS ORDERED: DiphenhydrAMINE HCL 50 MG/ML VIAL IM ONE (16:45)
== END 2022-06-18 18:10 | disposition home or self-care (01) | DRG 371 ==
LOC: EMS 05:35 → 6S 12:37
PROVIDERS: ADMIT Internal Medicine; ATTEND Internal Medicine
DX: A04.72 Enterocolitis due to Clostridium difficile, not specified as recurrent (principal); K85.90 Acute pancreatitis without necrosis or infection, unspecified; N18.6 End stage renal disease; I13.11 Hypertensive heart and chronic kidney disease without heart failure, with stage 5 chronic kidney disease, or end stage renal disease; E46 Unspecified protein-calorie malnutrition; E87.1 Hypo-osmolality and hyponatremia; L03.119 Cellulitis of unspecified part of limb; Q61.3 Polycystic kidney, unspecified; D63.1 Anemia in chronic kidney disease; E03.9 Hypothyroidism, unspecified; E11.22 Type 2 diabetes mellitus with diabetic chronic kidney disease; E21.3 Hyperparathyroidism, unspecified; E78.5 Hyperlipidemia, unspecified; E88.09 Other disorders of plasma-protein metabolism, not elsewhere classified; F41.9 Anxiety disorder, unspecified; G89.4 Chronic pain syndrome; Z20.822 Contact with and (suspected) exposure to COVID-19; Z79.899 Other long term (current) drug therapy; Z87.440 Personal history of urinary (tract) infections; Z91.19 Patient's noncompliance with other medical treatment and regimen; Z99.2 Dependence on renal dialysis; Z91.013 Allergy to seafood; Z88.5 Allergy status to narcotic agent; Z68.26 Body mass index [BMI] 26.0-26.9, adult
CPT/HCPCS: 71045; 74176; 80048; 80053; 81001; 83605; 83690; 84439; 84443; 84702; 85025; 87081; 87086; 87324; 87340; 87449; 93005; 99285; G0378; G0480; J0131; J0885; J1170; J1200; J1644; J2405; J3490; J7030; 36415-L1; 36415-TC

== ENCOUNTER 2022-06-21 20:36 | Emergency (ER) | payer MEDICARE, MEDICAID ==
[~2022-06-21] VITALS: Ht 175.3 cm; Wt 80.0 kg
[~2022-06-21 20:36] MED LIST changes: -CEPH-558 PO; +METR500 PO
[2022-06-21 23:00] VITALS: BP 132/68
[2022-06-21] MEDS ORDERED: IBUP-2070 PO (23:10)
== END 2022-06-22 01:26 | disposition home or self-care (01) ==
LOC: EMS 20:37
DX: M10.9 Gout, unspecified (principal); E11.22 Type 2 diabetes mellitus with diabetic chronic kidney disease; I12.0 Hypertensive chronic kidney disease with stage 5 chronic kidney disease or end stage renal disease; N18.6 End stage renal disease; Z99.2 Dependence on renal dialysis; Z90.89 Acquired absence of other organs; Z90.49 Acquired absence of other specified parts of digestive tract; Z88.6 Allergy status to analgesic agent
CPT/HCPCS: 99284; 73610-TC; 73630-TC; Z7502

== ENCOUNTER 2022-07-11 12:01 | Emergency (ER) | payer MEDICARE, MEDICAID ==
[~2022-07-11] VITALS: Ht 160 cm; Wt 80.9 kg
[~2022-07-11 12:01] MED LIST changes: -LISI2.5T13 PO; -METR500 PO
[2022-07-11 12:54] LABS: BASOPHILS % (AUTO) 0.9 % (0.0-2.0); EOSINOPHILS % (AUTO) 1.5 % (1.0-6.0); HEMATOCRIT 26.8 % (36-46); LYMPHOCYTES # (AUTO) 0.8 K/uL (1.0-4.8); LYMPHOCYTES % (AUTO) 17.8 % (22.0-44.0); MEAN CORPUSCULAR HEMOGLOBIN 29.6 pg (26.0-34.0); MEAN CORPUSCULAR HGB CONC 33.6 G/dL (31.0-37.0); MEAN CORPUSCULAR VOLUME 88 fL (80-100); MONOCYTES # (AUTO) 0.4 K/uL (0.1-1.0); MONOCYTES % (AUTO) 8.5 % (2.0-9.0); NEUTROPHILS # (AUTO) 3.3 K/uL (1.8-7.7); NEUTROPHILS % (AUTO) 71.3 % (40.0-70.0); PLATELET COUNT (AUTO) 199 K/uL (150-450); RED BLOOD CELL COUNT(AUTO) 3.04 MIL/uL (4.00-5.20); RED CELL DISTRIBUTION WIDTH 17.4 % (11.5-14.5)
[2022-07-11] MEDS ORDERED: ONDANSETRON HCL 4 MG/2 ML VIAL IM ONE (13:00)
[2022-07-11] MEDS ORDERED: KETOROLAC TROMETHAMINE 60 MG/2 ML VIAL IM ONE (13:00)
[2022-07-11] MEDS ORDERED: HYDROmorphone HCL 2 MG/ML SYRINGE IM ONE (13:00)
[2022-07-11] MEDS ORDERED: MAG HYDROX/AL HYDROX/SIMETH ES 30 ML SUSPENSION UDCUP PO ONE (13:00)
[2022-07-11 13:06] LABS: CALCIUM, TOTAL 8.3 mg/dL (8.8-10.5); CREATININE 5.89 mg/dL (0.60-1.30); POTASSIUM 3.4 mmol/L (3.5-5.1)
[2022-07-11 13:13] LABS: ALBUMIN 2.5 g/dL (3.4-5.0); BILIRUBIN,TOTAL 0.4 mg/dL (0.1-1.0); TOTAL PROTEIN, SERUM 7.6 g/dL (6.4-8.2)
[2022-07-11 14:33] VITALS: BP 144/78
[2022-07-11] MEDS ORDERED: GABA-1216 PO (14:58)
[2022-07-11] MEDS ORDERED: ONDA-104 PO (14:58)
[2022-07-11] MEDS ORDERED: ACET-66 PO (14:58)
== END 2022-07-11 15:07 | disposition home or self-care (01) ==
LOC: EMS 12:26
DX: R07.89 Other chest pain (principal); K29.50 Unspecified chronic gastritis without bleeding; E44.0 Moderate protein-calorie malnutrition; E11.22 Type 2 diabetes mellitus with diabetic chronic kidney disease; I12.0 Hypertensive chronic kidney disease with stage 5 chronic kidney disease or end stage renal disease; N18.6 End stage renal disease; D64.9 Anemia, unspecified; F32.9 Major depressive disorder, single episode, unspecified; G89.4 Chronic pain syndrome; E87.6 Hypokalemia; Z99.2 Dependence on renal dialysis; Z91.013 Allergy to seafood; Z88.5 Allergy status to narcotic agent; Z90.49 Acquired absence of other specified parts of digestive tract
CPT/HCPCS: 99285; 71045; 80053; 83880; 84484; 85025; 36415; 93005; 96372; J1170; J1885; J2405

== ENCOUNTER 2022-07-16 08:14 | Inpatient (IN) | payer MEDICARE, MEDICAID ==
[~2022-07-16] VITALS: Ht 170.2 cm; Wt 81.5 kg
[~2022-07-16 08:14] MED LIST changes: +ACET-66 PO; +GABA-1216 PO; +ONDA-104 PO
[2022-07-16 09:02] LABS: BASOPHILS % (AUTO) 1.4 % (0.0-2.0); EOSINOPHILS % (AUTO) 2.3 % (1.0-6.0); HEMATOCRIT 30.4 % (36-46); HEMOGLOBIN 9.9 g/dL (12.0-16.0); LYMPHOCYTES # (AUTO) 0.9 K/uL (1.0-4.8); LYMPHOCYTES % (AUTO) 14.7 % (22.0-44.0); MEAN CORPUSCULAR HEMOGLOBIN 29.3 pg (26.0-34.0); MEAN CORPUSCULAR HGB CONC 32.8 G/dL (31.0-37.0); MEAN CORPUSCULAR VOLUME 89 fL (80-100); MONOCYTES # (AUTO) 0.3 K/uL (0.1-1.0); MONOCYTES % (AUTO) 5.1 % (2.0-9.0); NEUTROPHILS # (AUTO) 4.5 K/uL (1.8-7.7); NEUTROPHILS % (AUTO) 76.5 % (40.0-70.0); PLATELET COUNT (AUTO) 149 K/uL (150-450); RED CELL DISTRIBUTION WIDTH 18.9 % (11.5-14.5)
[2022-07-16 09:03] LABS: COVID AG,FIA SOURCE NASAL SWAB
[2022-07-16 09:16] LABS: CALCIUM, TOTAL 8.2 mg/dL (8.8-10.5); CREATININE 10.95 mg/dL (0.60-1.30); POTASSIUM 5.7 mmol/L (3.5-5.1)
[2022-07-16 09:18] LABS: PROTHROMBIN TIME 10.5 SEC (9.4-11.6)
[2022-07-16 09:24] LABS: INFLUENZA TYPE A NEGATIVE FOR TYPE A (NEGATIVE); INFLUENZA TYPE B NEGATIVE FOR TYPE B (NEGATIVE)
[2022-07-16 09:27] LABS: BILIRUBIN,TOTAL 0.6 mg/dL (0.1-1.0); TOTAL PROTEIN, SERUM 7.8 g/dL (6.4-8.2)
[2022-07-16] MEDS ORDERED: DEXTROSE 50%-WATER 25 GM/50 ML SYRINGE IVP ONE (10:45)
[2022-07-16] MEDS ORDERED: HYDROCODONE/ACETAMINOPHEN 5-325 MG TABLET PO ONE (10:45)
[2022-07-16] MEDS ORDERED: CALCIUM GLUCONATE 1,000 MG in DEXTROSE 5%-WATER 50 ML IV ONE (10:45)
[2022-07-16] MEDS ORDERED: INSULIN REGULAR, HUMAN 100 UNITS/ML IVP ONE (10:45)
[2022-07-16] MEDS ORDERED: ALBUTEROL SULFATE 2.5 MG/0.5 ML NEB SOLUTION NEB ONE (10:45)
[2022-07-16] MEDS ORDERED: SODIUM BICARBONATE [ADULT] 8.4% 50 MEQ/50 ML SYRINGE IVP ONE (10:45)
[2022-07-16] MEDS ORDERED: SODIUM POLYSTYRENE SULFONATE 15 GM/60 ML SUSPENSION BOTTLE PO ONE (10:45)
[2022-07-16] MEDS ORDERED: EPOETIN ALFA 10,000 UNITS/ML VIAL SQ PRN (12:30)
[2022-07-16] MEDS ORDERED: INSULIN LISPRO 100 UNITS/ML SQ PRN (13:00)
[2022-07-16] MEDS ORDERED: DEXTROSE 50%-WATER 25 GM/50 ML SYRINGE IVP PRN (13:00)
[2022-07-16] MEDS ORDERED: ACETAMINOPHEN 325 MG TABLET PO PRN (13:00)
[2022-07-16] MEDS: PANTOPRAZOLE SODIUM 40 MG DR TABLET PO SCH (13:03)
[2022-07-16 13:22] LABS: THYROID STIMULATING HORMONE 9.45 uIU/mL (0.36-3.74)
[2022-07-16] MEDS: HEPARIN SODIUM,PORCINE 5,000 UNITS/ML VIAL SQ SCH (15:36)
[2022-07-16] MEDS: ONDANSETRON HCL 4 MG/2 ML VIAL IVP PRN ×3 (15:36→20:41)
[2022-07-16] MEDS: HYDROmorphone HCL 2 MG/ML SYRINGE IVP PRN ×2 (15:37→20:41)
[2022-07-16 17:56] LABS: GLUCOSE,POINT OF CARE 128 MG/DL (70-110)
[2022-07-16 20:00] VITALS: BP 183/106
[2022-07-16 22:30] VITALS: BP_SYST 190; BP_DIAS 112; BP_DIAS 120
[2022-07-16 22:55] VITALS: BP 193/120
[2022-07-16 23:30] VITALS: BP 188/108
[2022-07-17] VITALS (11 sets, daily range): BP systolic 145–195; BP diastolic 84–134
[2022-07-17] MEDS: HYDROmorphone HCL 2 MG/ML SYRINGE IVP PRN ×5 (02:04→22:14)
[2022-07-17] MEDS: HEPARIN SODIUM,PORCINE 5,000 UNITS/ML VIAL SQ SCH ×4 (02:04→23:35)
[2022-07-17] MEDS: ONDANSETRON HCL 4 MG/2 ML VIAL IVP PRN ×4 (02:12→22:13)
[2022-07-17] MEDS: LEVOTHYROXINE SODIUM 125 MCG TABLET PO SCH (06:32)
[2022-07-17] MEDS: PANTOPRAZOLE SODIUM 40 MG DR TABLET PO SCH (08:53)
[2022-07-17] MEDS: ASPIRIN 81 MG CHEWABLE TABLET PO SCH (08:53)
[2022-07-17] MEDS: PARICALCITOL 1 MCG CAPSULE PO SCH (08:53)
[2022-07-17] MEDS: AmLODIPine BESYLATE 5 MG TABLET PO SCH (08:53)
[2022-07-17 09:07] LABS: CALCIUM, TOTAL 8.5 mg/dL (8.8-10.5); CREATININE 7.49 mg/dL (0.60-1.30); POTASSIUM 5.2 mmol/L (3.5-5.1)
[2022-07-17] MEDS ORDERED: DiphenhydrAMINE HCL 50 MG/ML VIAL IVP PRN (10:00)
[2022-07-17] MEDS: DiphenhydrAMINE HCL 50 MG/ML VIAL IVP PRN ×3 (11:14→23:35)
[2022-07-17] MEDS ORDERED: DiphenhydrAMINE HCL 50 MG/ML VIAL IVP ONE (12:00)
[2022-07-17] MEDS ORDERED: LIDOCAINE/PF 1% 2 ML VIAL IM ONE (12:00)
[2022-07-18] VITALS (14 sets, daily range): BP systolic 139–176; BP diastolic 81–96
[2022-07-18] MEDS: ONDANSETRON HCL 4 MG/2 ML VIAL IVP PRN ×3 (04:27→09:10)
[2022-07-18] MEDS: HYDROmorphone HCL 2 MG/ML SYRINGE IVP PRN ×3 (04:27→09:10)
[2022-07-18] MEDS: DiphenhydrAMINE HCL 50 MG/ML VIAL IVP PRN ×4 (05:27→14:50)
[2022-07-18] MEDS: LEVOTHYROXINE SODIUM 125 MCG TABLET PO SCH (05:31)
[2022-07-18 05:36] LABS: GLUCOMETER DEV NAME(LOC) 5S.2B; GLUCOSE,POINT OF CARE 104 MG/DL (70-110)
[2022-07-18 06:27] LABS: GLUCOMETER DEV NAME(LOC) 5S.1B; GLUCOSE,POINT OF CARE 78 MG/DL (70-110)
[2022-07-18 06:27] LABS: GLUCOMETER DEV NAME(LOC) 5S.1B; GLUCOSE,POINT OF CARE 120 MG/DL (70-110)
[2022-07-18] MEDS: AmLODIPine BESYLATE 5 MG TABLET PO SCH (08:25)
[2022-07-18] MEDS: PANTOPRAZOLE SODIUM 40 MG DR TABLET PO SCH (08:25)
[2022-07-18] MEDS: HEPARIN SODIUM,PORCINE 5,000 UNITS/ML VIAL SQ SCH ×2 (08:25→16:00)
[2022-07-18] MEDS: ASPIRIN 81 MG CHEWABLE TABLET PO SCH (08:25)
[2022-07-18] MEDS: PARICALCITOL 1 MCG CAPSULE PO SCH (08:25)
[2022-07-18] MEDS ORDERED: LIDOCAINE/PF 1% 2 ML VIAL ID PRN (12:45)
[2022-07-18] MEDS ORDERED: DiphenhydrAMINE HCL 50 MG/ML VIAL IVP PRN (12:45)
[2022-07-18] MEDS ORDERED: AMLO-257 PO (13:15)
[2022-07-18] MEDS ORDERED: PARI1CAP PO (13:15)
[2022-07-18] MEDS ORDERED: ASPI81 PO (13:15)
[2022-07-18] MEDS ORDERED: LEVO125 PO (13:15)
== END 2022-07-18 19:13 | disposition home or self-care (01) | DRG 640 ==
LOC: EMS 08:20 → 5S 18:16
PROVIDERS: ADMIT Internal Medicine; ATTEND Internal Medicine
PROC: 5A1D70Z Performance of Urinary Filtration, Intermittent, Less than 6 Hours Per Day (ICD-10-PCS; principal; 2022-07-16)
DX: E87.5 Hyperkalemia (principal); N18.6 End stage renal disease; F11.20 Opioid dependence, uncomplicated; I13.11 Hypertensive heart and chronic kidney disease without heart failure, with stage 5 chronic kidney disease, or end stage renal disease; Q61.3 Polycystic kidney, unspecified; E46 Unspecified protein-calorie malnutrition; N17.9 Acute kidney failure, unspecified; N25.81 Secondary hyperparathyroidism of renal origin; R64 Cachexia; D63.1 Anemia in chronic kidney disease; E11.22 Type 2 diabetes mellitus with diabetic chronic kidney disease; F32.9 Major depressive disorder, single episode, unspecified; G89.4 Chronic pain syndrome; E83.51 Hypocalcemia; Z20.822 Contact with and (suspected) exposure to COVID-19; E03.9 Hypothyroidism, unspecified; E83.39 Other disorders of phosphorus metabolism; E88.09 Other disorders of plasma-protein metabolism, not elsewhere classified; F41.9 Anxiety disorder, unspecified; R62.7 Adult failure to thrive; G47.00 Insomnia, unspecified; Z79.82 Long term (current) use of aspirin; Z99.2 Dependence on renal dialysis; Z91.15 Patient's noncompliance with renal dialysis; Z79.899 Other long term (current) drug therapy; Z82.49 Family history of ischemic heart disease and other diseases of the circulatory system; Z83.3 Family history of diabetes mellitus; Z91.199 Patient's noncompliance with other medical treatment and regimen due to unspecified reason; Z68.28 Body mass index [BMI] 28.0-28.9, adult; Z88.5 Allergy status to narcotic agent; Z91.013 Allergy to seafood; Z91.119 Patient's noncompliance with dietary regimen due to unspecified reason
CPT/HCPCS: 70450; 74176; 80048; 80053; 82962; 83690; 84443; 84484; 84702; 85025; 85610; 85730; 87340; 87804; 93005; 94640; 99285; J0610; J1170; J1200; J1644; J1815; J2405; J3490; J7060

== ENCOUNTER 2022-08-13 16:03 | Emergency (ER) | payer MEDICARE, MEDICAID ==
[~2022-08-13] VITALS: Ht 167.6 cm; Wt 100.0 kg
[~2022-08-13 16:03] MED LIST changes: +ASPI81 PO; +LEVO125 PO; +PARI1CAP PO
[2022-08-13 17:10] LABS: BASOPHILS % (AUTO) 1.1 % (0.0-2.0); EOSINOPHILS % (AUTO) 2.6 % (1.0-6.0); HEMATOCRIT 32.6 % (36-46); HEMOGLOBIN 10.8 g/dL (12.0-16.0); LYMPHOCYTES % (AUTO) 22.7 % (22.0-44.0); MEAN CORPUSCULAR HEMOGLOBIN 29.4 pg (26.0-34.0); MEAN CORPUSCULAR VOLUME 89 fL (80-100); MONOCYTES # (AUTO) 0.2 K/uL (0.1-1.0); MONOCYTES % (AUTO) 5.3 % (2.0-9.0); NEUTROPHILS # (AUTO) 3.1 K/uL (1.8-7.7); NEUTROPHILS % (AUTO) 68.3 % (40.0-70.0); RED BLOOD CELL COUNT(AUTO) 3.66 MIL/uL (4.00-5.20); RED CELL DISTRIBUTION WIDTH 21.4 % (11.5-14.5)
[2022-08-13 17:16] LABS: CALCIUM, TOTAL 9.2 mg/dL (8.8-10.5); CREATININE 8.11 mg/dL (0.60-1.30); POTASSIUM 3.5 mmol/L (3.5-5.1)
[2022-08-13 17:20] LABS: APPEARANCE,URINE HAZY (CLEAR); BILIRUBIN,URINE NEGATIVE (NEGATIVE); GLUCOSE, URINE (UA) TRACE mg/dL (NEGATIVE); KETONES,URINE NEGATIVE (NEGATIVE); LEUKOCYTE ESTERASE ,URINE NEGATIVE (NEGATIVE); NITRATE,URINE NEGATIVE (NEGATIVE); OCCULT BLOOD,URINE LARGE (NEGATIVE); PROTEIN,URINE 100-200,SEE CONFIRM mg/dL (NEGATIVE); SPECIFIC GRAVITIY, URINE 1.007 (1.003-1.030); UROBILINOGEN,URINE <=1.0 mg/dL (<=1.0)
[2022-08-13 17:21] LABS: ALBUMIN 3.2 g/dL (3.4-5.0); BILIRUBIN,TOTAL 1.1 mg/dL (0.1-1.0); MAGNESIUM 2.3 mg/dL (1.80-2.40); PHOSPHORUS 3.7 mg/dL (2.5-4.9); TOTAL PROTEIN, SERUM 7.8 g/dL (6.4-8.2)
[2022-08-13 17:29] LABS: PLATELET COUNT (AUTO) 99 K/uL (150-450)
[2022-08-13 17:52] LABS: BACTERIA,URINE Moderate /HPF (None Seen); SQUAMOUS EPITHELIAL CELL,UR Moderate /LPF (None Seen); SULFOSALICYLIC ACID,URINE 2+ (Negative)
[2022-08-13] MEDS ORDERED: DOXYCYCLINE HYCLATE 100 MG TABLET PO ONE (20:15)
[2022-08-13 20:23] LABS: APPEARANCE,URINE HAZY (CLEAR); BILIRUBIN,URINE NEGATIVE (NEGATIVE); GLUCOSE, URINE (UA) TRACE mg/dL (NEGATIVE); KETONES,URINE NEGATIVE (NEGATIVE); LEUKOCYTE ESTERASE ,URINE SMALL (NEGATIVE); NITRATE,URINE NEGATIVE (NEGATIVE); OCCULT BLOOD,URINE LARGE (NEGATIVE); PROTEIN,URINE 100-200,SEE CONFIRM mg/dL (NEGATIVE); SPECIFIC GRAVITIY, URINE 1.006 (1.003-1.030); UROBILINOGEN,URINE <=1.0 mg/dL (<=1.0)
[2022-08-13 20:40] LABS: BACTERIA,URINE Few /HPF (None Seen); SQUAMOUS EPITHELIAL CELL,UR Many /LPF (None Seen)
[2022-08-13] MEDS ORDERED: DOXY-354 PO (21:56)
[2022-08-13] MEDS ORDERED: ACETAMINOPHEN 325 MG TABLET PO ONE (22:00)
[2022-08-13 22:41] VITALS: BP 129/67
== END 2022-08-13 23:00 | disposition home or self-care (01) ==
LOC: EMS 17:12
DX: J18.9 Pneumonia, unspecified organism (principal); N18.6 End stage renal disease; Z99.2 Dependence on renal dialysis; E11.9 Type 2 diabetes mellitus without complications; I10 Essential (primary) hypertension; Z90.49 Acquired absence of other specified parts of digestive tract; Z88.5 Allergy status to narcotic agent; Z91.013 Allergy to seafood
CPT/HCPCS: 71045; 80053; 81001; 81002; 83735; 84100; 84484; 85025; 87086; 93005; 99285; 36415-L1; 36415-TC

== ENCOUNTER 2022-08-19 15:49 | Emergency (ER) | payer MEDICARE, MEDICAID ==
[~2022-08-19] VITALS: Ht 170.2 cm; Wt 79.0 kg
[~2022-08-19 15:49] MED LIST changes: -ACET-3385 PO; +DOXY-354 PO; -LEVO112T7 PO
[2022-08-19 15:55] VITALS: BP 170/102
== END 2022-08-19 16:30 | disposition left against medical advice (07) ==
LOC: EMS 15:53
DX: Q61.3 Polycystic kidney, unspecified (principal); Z53.21 Procedure and treatment not carried out due to patient leaving prior to being seen by health care provider

== ENCOUNTER 2022-09-23 15:56 | Emergency (ER) | payer MEDICARE, MEDICAID ==
[~2022-09-23] VITALS: Ht 170.2 cm; Wt 76.0 kg
[2022-09-23 17:11] LABS: BASOPHILS % (AUTO) 0.5 % (0.0-2.0); EOSINOPHILS % (AUTO) 1.4 % (1.0-6.0); HEMATOCRIT 33.7 % (36-46); LYMPHOCYTES # (AUTO) 0.5 K/uL (1.0-4.8); LYMPHOCYTES % (AUTO) 5.5 % (22.0-44.0); MEAN CORPUSCULAR HGB CONC 32.7 G/dL (31.0-37.0); MEAN CORPUSCULAR VOLUME 89 fL (80-100); MONOCYTES # (AUTO) 0.4 K/uL (0.1-1.0); MONOCYTES % (AUTO) 4.1 % (2.0-9.0); NEUTROPHILS # (AUTO) 7.8 K/uL (1.8-7.7); PLATELET COUNT (AUTO) 153 K/uL (150-450); RED CELL DISTRIBUTION WIDTH 19.8 % (11.5-14.5)
[2022-09-23 17:12] LABS: NEUTROPHILS % (AUTO) 88.5 % (40.0-70.0)
[2022-09-23 17:25] LABS: CALCIUM, TOTAL 9.2 mg/dL (8.8-10.5); CREATININE 10.04 mg/dL (0.60-1.30); POTASSIUM 4.5 mmol/L (3.5-5.1)
[2022-09-23 17:34] LABS: ALBUMIN 2.9 g/dL (3.4-5.0); BILIRUBIN,TOTAL 0.5 mg/dL (0.1-1.0); TOTAL PROTEIN, SERUM 7.8 g/dL (6.4-8.2)
[2022-09-23 17:51] LABS: COVID AG,FIA SOURCE NASAL SWAB
[2022-09-23 18:13] LABS: INFLUENZA TYPE A NEGATIVE FOR TYPE A (NEGATIVE); INFLUENZA TYPE B NEGATIVE FOR TYPE B (NEGATIVE)
[2022-09-23] MEDS ORDERED: ONDANSETRON HCL 4 MG/2 ML VIAL IVP ONE (18:30)
[2022-09-23] MEDS ORDERED: FAMOTIDINE 10 MG/ML 2 ML VIAL IVP ONE (18:30)
[2022-09-23] MEDS ORDERED: MAG HYDROX/AL HYDROX/SIMETH 30 ML SUSP UDCUP PO ONE (18:30)
[2022-09-23] MEDS ORDERED: ACETAMINOPHEN 500 MG TABLET PO ONE (18:30)
[2022-09-23 21:40] VITALS: BP 133/91
== END 2022-09-23 22:55 | disposition home or self-care (01) ==
LOC: EMS 16:38
DX: R10.33 Periumbilical pain (principal); E11.22 Type 2 diabetes mellitus with diabetic chronic kidney disease; I12.0 Hypertensive chronic kidney disease with stage 5 chronic kidney disease or end stage renal disease; N18.6 End stage renal disease; Z99.2 Dependence on renal dialysis; Z90.49 Acquired absence of other specified parts of digestive tract; Z98.890 Other specified postprocedural states; Z91.013 Allergy to seafood; Z88.5 Allergy status to narcotic agent; Z20.822 Contact with and (suspected) exposure to COVID-19
CPT/HCPCS: 99284; 74176; 96374; 96375; 87426; 80053; 83690; 84702; 85025; 87804; 36415; J3490; J2405

== ENCOUNTER 2023-12-22 09:58 | Inpatient (IN) | payer MEDICARE, OTHER ==
[~2023-12-22] VITALS: Ht 170.2 cm; Wt 73.2 kg
[~2023-12-22 09:58] MED LIST changes: -ACET-66 PO; -AMLO-257 PO; +AMLO10TA55 PO; +ASPI-1450 PO; -ASPI81 PO; +ATOR40TA71 PO; +CARV6.2534 PO; +CYAN500T56 PO; -DOXY-354 PO; +FOLI-130 PO; -FOLI0.8T2 PO; -GABA-1216 PO; +GABA-529 PO; +HYDR50TA37 PO; -LEVO125 PO; +LEVO137T2 PO; -ONDA-104 PO; +PANT40TA54 PO; -PARI1CAP PO; +PARI1CAP11 PO; -SEVE800T17 PO; +SEVE800T38 PO; +SODI5POW3 PO
[2023-12-22 10:28] LABS: COVID AG,FIA SOURCE NASAL SWAB
[2023-12-22 10:45] LABS: SARS-COV2 (COVID) ANTIGEN,FIA Negative (Negative)
[2023-12-22 10:46] LABS: INFLUENZA TYPE A NEGATIVE FOR TYPE A (NEGATIVE); INFLUENZA TYPE B NEGATIVE FOR TYPE B (NEGATIVE)
[2023-12-22 10:59] LABS: BASOPHILS % (AUTO) 0.6 % (0.0-2.0); EOSINOPHILS % (AUTO) 1.3 % (1.0-6.0); HEMOGLOBIN 9.7 g/dL (12.0-16.0); LYMPHOCYTES # (AUTO) 0.6 K/uL (1.0-4.8); LYMPHOCYTES % (AUTO) 10.7 % (22.0-44.0); MEAN CORPUSCULAR HEMOGLOBIN 30.9 pg (26.0-34.0); MEAN CORPUSCULAR HGB CONC 34.8 G/dL (31.0-37.0); MEAN CORPUSCULAR VOLUME 89 fL (80-100); MONOCYTES # (AUTO) 0.3 K/uL (0.1-1.0); NEUTROPHILS # (AUTO) 4.7 K/uL (1.8-7.7); NEUTROPHILS % (AUTO) 82.4 % (40.0-70.0); RED BLOOD CELL COUNT(AUTO) 3.14 MIL/uL (4.00-5.20); RED CELL DISTRIBUTION WIDTH 16.5 % (11.5-14.5); WHITE BLOOD COUNT (AUTO) 5.7 K/uL (4.5-11.0)
[2023-12-22 11:12] LABS: CALCIUM, TOTAL 9.3 mg/dL (8.8-10.5); CREATININE 7.35 mg/dL (0.60-1.30); POTASSIUM 4.2 mmol/L (3.5-5.1)
[2023-12-22 11:18] LABS: ALBUMIN 3.1 g/dL (3.4-5.0); TOTAL PROTEIN, SERUM 7.8 g/dL (6.4-8.2)
[2023-12-22 11:20] LABS: TROPONIN I-HIGH SENSITIVITY 54 ng/L (<51)
[2023-12-22 11:51] LABS: PLATELET COUNT (AUTO) 44 K/uL (150-450)
[2023-12-22] MEDS: PHENOBARB/HYOSCY/ATROPINE/SCOP 5 ML UDCUP ELIXIR PO ONE (12:58)
[2023-12-22] MEDS: AmLODIPine BESYLATE 10 MG TABLET PO SCH (12:59)
[2023-12-22] MEDS ORDERED: ZOLPIDEM TARTRATE 5 MG TABLET PO PRN (13:00)
[2023-12-22] MEDS ORDERED: ONDANSETRON HCL 4 MG/2 ML VIAL IVP PRN (13:00)
[2023-12-22] MEDS: ONDANSETRON HCL 4 MG/2 ML VIAL IVP ONE (13:00)
[2023-12-22 13:49] LABS: APPEARANCE,URINE CLEAR (CLEAR); BILIRUBIN,URINE NEGATIVE (NEGATIVE); COLOR,URINE LIGHT YELLOW (YELLOW); GLUCOSE, URINE (UA) 70-100 mg/dL (NEGATIVE); KETONES,URINE NEGATIVE (NEGATIVE); LEUKOCYTE ESTERASE ,URINE NEGATIVE (NEGATIVE); NITRATE,URINE NEGATIVE (NEGATIVE); OCCULT BLOOD,URINE MODERATE (NEGATIVE); PH,URINE 8.5 (5.0-8.0); PROTEIN,URINE 300-600,SEE CONFIRM mg/dL (NEGATIVE); SPECIFIC GRAVITIY, URINE 1.007 (1.003-1.030); UROBILINOGEN,URINE <=1.0 mg/dL (<=1.0)
[2023-12-22 13:56] LABS: SULFOSALICYLIC ACID,URINE 3+ (Negative)
[2023-12-22 13:57] LABS: BACTERIA,URINE None Seen /HPF (None Seen); SQUAMOUS EPITHELIAL CELL,UR Moderate /LPF (None Seen); WBC,URINE 0-2 /HPF (0-5)
[2023-12-22] MEDS: HEPARIN SODIUM,PORCINE 5,000 UNITS/ML VIAL SQ SCH (15:14)
[2023-12-22] MEDS: HYDROmorphone HCL 2 MG TABLET PO PRN (16:32)
[2023-12-22] MEDS: CloNIDine HCL 0.1 MG TABLET PO PRN (17:19)
[2023-12-22 18:10] VITALS: BP 150/93; PULSE 91; RESP 19; TEMP 99
[2023-12-22 20:37] VITALS: BP 160/88; PULSE 89; RESP 20; TEMP 100.3
[2023-12-22] MEDS: DOCUSATE SODIUM 100 MG CAPSULE PO SCH (21:00)
[2023-12-22] MEDS: DiphenhydrAMINE HCL 25 MG CAPSULE PO PRN (21:11)
[2023-12-22] MEDS: ACETAMINOPHEN 325 MG TABLET PO PRN (21:11)
[2023-12-23] VITALS (14 sets, daily range): BP systolic 143–176; BP diastolic 82–101; PULSE 62–92; RESP 17–18; TEMP 98–99.4
[2023-12-23] MEDS: ASPIRIN 81 MG CHEWABLE TABLET PO SCH (08:24)
[2023-12-23] MEDS: FAMOTIDINE 20 MG TABLET PO SCH (08:24)
[2023-12-23] MEDS: EPOETIN ALFA 10,000 UNITS/ML VIAL SQ SCH (08:25)
[2023-12-23] MEDS: PANTOPRAZOLE SODIUM 40 MG DR TABLET PO SCH (09:16)
[2023-12-23 10:40] LABS: C.DIFF GDH ANTIGEN, Stool Negative (Negative); C.DIFF TOXINS A&B, Stool Negative (Negative)
[2023-12-23 11:05] LABS: BASOPHILS % (AUTO) 0.5 % (0.0-2.0); EOSINOPHILS % (AUTO) 2.5 % (1.0-6.0); HEMATOCRIT 24.7 % (36-46); HEMOGLOBIN 8.5 g/dL (12.0-16.0); LYMPHOCYTES # (AUTO) 0.8 K/uL (1.0-4.8); LYMPHOCYTES % (AUTO) 18.3 % (22.0-44.0); MEAN CORPUSCULAR HEMOGLOBIN 30.5 pg (26.0-34.0); MEAN CORPUSCULAR HGB CONC 34.3 G/dL (31.0-37.0); MEAN CORPUSCULAR VOLUME 89 fL (80-100); MONOCYTES # (AUTO) 0.3 K/uL (0.1-1.0); MONOCYTES % (AUTO) 7.1 % (2.0-9.0); NEUTROPHILS # (AUTO) 3.1 K/uL (1.8-7.7); NEUTROPHILS % (AUTO) 71.6 % (40.0-70.0); PLATELET COUNT (AUTO) 42 K/uL (150-450); RED BLOOD CELL COUNT(AUTO) 2.78 MIL/uL (4.00-5.20); RED CELL DISTRIBUTION WIDTH 16.1 % (11.5-14.5); WHITE BLOOD COUNT (AUTO) 4.3 K/uL (4.5-11.0)
[2023-12-23] MEDS ORDERED: HEPARIN SODIUM,PORCINE 1,000 UNITS/ML VIAL IVP ONE (12:00)
[2023-12-23] MEDS ORDERED: DiphenhydrAMINE HCL 50 MG/ML VIAL IVP ONE (12:00)
[2023-12-24] VITALS (7 sets, daily range): BP systolic 143–157; BP diastolic 78–90; PULSE 68–79; RESP 18–19; TEMP 98–98.9
[2023-12-24 13:11] LABS: BASOPHILS % (AUTO) 0.9 % (0.0-2.0); EOSINOPHILS % (AUTO) 3.6 % (1.0-6.0); HEMATOCRIT 25.7 % (36-46); LYMPHOCYTES # (AUTO) 0.7 K/uL (1.0-4.8); LYMPHOCYTES % (AUTO) 25.8 % (22.0-44.0); MEAN CORPUSCULAR HEMOGLOBIN 31.1 pg (26.0-34.0); MEAN CORPUSCULAR HGB CONC 35.2 G/dL (31.0-37.0); MEAN CORPUSCULAR VOLUME 88 fL (80-100); MONOCYTES # (AUTO) 0.3 K/uL (0.1-1.0); MONOCYTES % (AUTO) 11.4 % (2.0-9.0); NEUTROPHILS # (AUTO) 1.6 K/uL (1.8-7.7); NEUTROPHILS % (AUTO) 58.3 % (40.0-70.0); PLATELET COUNT (AUTO) 60 K/uL (150-450); RED BLOOD CELL COUNT(AUTO) 2.91 MIL/uL (4.00-5.20); WHITE BLOOD COUNT (AUTO) 2.8 K/uL (4.5-11.0)
[2023-12-24] MEDS: BISMUTH SUBSALICYLATE 525 MG/30 ML SUSPENSION UDCUP PO PRN (20:45)
[2023-12-25] VITALS (12 sets, daily range): BP systolic 150–170; BP diastolic 82–109; PULSE 71–79; RESP 17–20; TEMP 97.3–98.8
[2023-12-25] MEDS ORDERED: DiphenhydrAMINE HCL 50 MG/ML VIAL ONE (12:00)
[2023-12-25] MEDS ORDERED: HEPARIN SODIUM,PORCINE 1,000 UNITS/ML VIAL ONE (12:00)
[2023-12-25] MEDS: HEPARIN SODIUM,PORCINE 1,000 UNITS/ML VIAL IVCATH ONE ×2 (15:11)
[2023-12-25] MEDS: DiphenhydrAMINE HCL 50 MG/ML VIAL IVP PRN (15:12)
== END 2023-12-25 16:40 | disposition home or self-care (01) | DRG 291 ==
LOC: EMS 09:58 → AHU 13:10 → 5N 17:07
PROVIDERS: ADMIT Internal Medicine; ATTEND Internal Medicine
PROC: 5A1D70Z Performance of Urinary Filtration, Intermittent, Less than 6 Hours Per Day (ICD-10-PCS; principal; 2023-12-23)
PROC: 5A1D70Z Performance of Urinary Filtration, Intermittent, Less than 6 Hours Per Day (ICD-10-PCS; 2023-12-25)
DX: I13.2 Hypertensive heart and chronic kidney disease with heart failure and with stage 5 chronic kidney disease, or end stage renal disease (principal); N18.6 End stage renal disease; N25.81 Secondary hyperparathyroidism of renal origin; E46 Unspecified protein-calorie malnutrition; R64 Cachexia; E87.5 Hyperkalemia; E11.22 Type 2 diabetes mellitus with diabetic chronic kidney disease; G89.4 Chronic pain syndrome; Z99.2 Dependence on renal dialysis; I50.9 Heart failure, unspecified; Z91.013 Allergy to seafood; Z76.5 Malingerer [conscious simulation]; E83.51 Hypocalcemia; E83.39 Other disorders of phosphorus metabolism; G47.00 Insomnia, unspecified; F41.9 Anxiety disorder, unspecified; Z20.822 Contact with and (suspected) exposure to COVID-19; E88.09 Other disorders of plasma-protein metabolism, not elsewhere classified; D63.1 Anemia in chronic kidney disease; R62.7 Adult failure to thrive; D69.6 Thrombocytopenia, unspecified; Z82.49 Family history of ischemic heart disease and other diseases of the circulatory system; Z83.3 Family history of diabetes mellitus; Z91.158 Patient's noncompliance with renal dialysis for other reason; Z68.25 Body mass index [BMI] 25.0-25.9, adult
CPT/HCPCS: 71045; 80053; 81001; 81002; 82271; 83690; 83880; 84484; 85025; 87040; 87081; 87324; 87340; 87449; 87804; 89055; 90935; 93005; 99285; J0885; J1200; J1644; J2405; 36415-L1; 36415-TC

== ENCOUNTER 2024-05-28 08:28 | Inpatient (IN) | payer MEDICARE, OTHER ==
[~2024-05-28] VITALS: Ht 170.2 cm; Wt 74.9 kg
[~2024-05-28 08:28] MED LIST changes: +AMLO-257 PO; +ATOR20TA65 PO; -ATOR40TA71 PO; +CEPH500C2 PO; -CYAN500T56 PO; +DOCU100C33 PO; -GABA-529 PO; -HYDR50TA37 PO; -LEVO137T2 PO; +LISI-892 PO; +MIDO5TAB5 PO; -PANT40TA54 PO
[2024-05-28 09:17] LABS: BASOPHILS % (AUTO) 0.4 % (0.0-2.0); EOSINOPHILS % (AUTO) 2.3 % (1.0-6.0); HEMATOCRIT 31.1 % (36-46); HEMOGLOBIN 10.3 g/dL (12.0-16.0); LYMPHOCYTES # (AUTO) 0.8 K/uL (1.0-4.8); LYMPHOCYTES % (AUTO) 11.3 % (22.0-44.0); MEAN CORPUSCULAR HEMOGLOBIN 30.1 pg (26.0-34.0); MEAN CORPUSCULAR HGB CONC 33.2 G/dL (31.0-37.0); MEAN CORPUSCULAR VOLUME 91 fL (80-100); MONOCYTES # (AUTO) 0.4 K/uL (0.1-1.0); PLATELET COUNT (AUTO) 129 K/uL (150-450); RED BLOOD CELL COUNT(AUTO) 3.43 MIL/uL (4.00-5.20); RED CELL DISTRIBUTION WIDTH 17.6 % (11.5-14.5); WHITE BLOOD COUNT (AUTO) 7.4 K/uL (4.5-11.0)
[2024-05-28 09:29] LABS: CREATININE 5.53 mg/dL (0.60-1.30); POTASSIUM 4.1 mmol/L (3.5-5.1)
[2024-05-28 09:37] LABS: TROPONIN I-HIGH SENSITIVITY 38 ng/L (<51)
[2024-05-28 09:50] LABS: APPEARANCE,URINE TURBID (CLEAR); BILIRUBIN,URINE NEGATIVE (NEGATIVE); COLOR,URINE LIGHT ORANGE (YELLOW); GLUCOSE, URINE (UA) TRACE mg/dL (NEGATIVE); KETONES,URINE NEGATIVE (NEGATIVE); LEUKOCYTE ESTERASE ,URINE MODERATE (NEGATIVE); NITRATE,URINE NEGATIVE (NEGATIVE); OCCULT BLOOD,URINE LARGE (NEGATIVE); PH,URINE 8.5 (5.0-8.0); PROTEIN,URINE 100-200,SEE CONFIRM mg/dL (NEGATIVE); SPECIFIC GRAVITIY, URINE 1.006 (1.003-1.030); UROBILINOGEN,URINE <=1.0 mg/dL (<=1.0)
[2024-05-28 10:08] LABS: SULFOSALICYLIC ACID,URINE 2+ (Negative)
[2024-05-28 10:14] LABS: BACTERIA,URINE Many /HPF (None Seen); RBC,URINE >100 /HPF (0-2); SQUAMOUS EPITHELIAL CELL,UR Many /LPF (None Seen)
[2024-05-28] MEDS: CefTRIAXone 1 GM/DEXTROSE 50 ML IV ONE (13:09)
[2024-05-28] MEDS: ONDANSETRON 4 MG TABLET PO ONE (13:10)
[2024-05-28] MEDS: DiphenhydrAMINE HCL 50 MG/ML VIAL IVP ONE (14:12)
[2024-05-28] MEDS ORDERED: MORPHINE SULFATE 2 MG/ML SYRINGE IVP ONE (14:15)
[2024-05-28 18:37] VITALS: BP 138/63; PULSE 63; RESP 18; TEMP 98.7; O2SAT 95
[2024-05-28 19:21] VITALS: BP 164/71; PULSE 67; RESP 18; TEMP 98.1; O2SAT 95
[2024-05-28] MEDS: DiphenhydrAMINE HCL 50 MG/ML VIAL IVP PRN (23:07)
[2024-05-28] MEDS: HYDROmorphone HCL 2 MG/ML SYRINGE IVP PRN (23:07)
[2024-05-28 23:55] VITALS: BP 162/75; PULSE 66; RESP 17; TEMP 98.7; O2SAT 95
[2024-05-29 04:33] VITALS: BP 166/88; PULSE 71; RESP 18; TEMP 98.3; O2SAT 98
[2024-05-29 06:30] LABS: BASOPHILS % (AUTO) 0.5 % (0.0-2.0); EOSINOPHILS % (AUTO) 4.4 % (1.0-6.0); HEMATOCRIT 29.9 % (36-46); HEMOGLOBIN 9.9 g/dL (12.0-16.0); LYMPHOCYTES % (AUTO) 21.6 % (22.0-44.0); MEAN CORPUSCULAR HEMOGLOBIN 30.2 pg (26.0-34.0); MEAN CORPUSCULAR VOLUME 92 fL (80-100); MONOCYTES # (AUTO) 0.3 K/uL (0.1-1.0); MONOCYTES % (AUTO) 7.5 % (2.0-9.0); NEUTROPHILS # (AUTO) 2.9 K/uL (1.8-7.7); PLATELET COUNT (AUTO) 110 K/uL (150-450); RED BLOOD CELL COUNT(AUTO) 3.26 MIL/uL (4.00-5.20); RED CELL DISTRIBUTION WIDTH 17.9 % (11.5-14.5); WHITE BLOOD COUNT (AUTO) 4.4 K/uL (4.5-11.0)
[2024-05-29 06:42] LABS: CALCIUM, TOTAL 8.6 mg/dL (8.8-10.5); CREATININE 7.32 mg/dL (0.60-1.30); POTASSIUM 4.2 mmol/L (3.5-5.1)
[2024-05-29 08:00] VITALS: BP 161/76; PULSE 65; RESP 18; TEMP 98.7; O2SAT 97
[2024-05-29 12:00] VITALS: BP 163/81; PULSE 71; RESP 18; TEMP 98.4
[2024-05-29] MEDS: CefoTEtan DISODIUM 1 GM in DEXTROSE 5%-WATER 50 ML IV SCH (14:00)
[2024-05-29] MEDS: AmLODIPine BESYLATE 5 MG TABLET PO SCH (14:01)
[2024-05-29 16:48] VITALS: BP 162/81; PULSE 63; RESP 18; TEMP 98.1; O2SAT 95
[2024-05-29 20:30] VITALS: BP 165/87; PULSE 68; RESP 18; TEMP 98; O2SAT 97
[2024-05-29] MEDS: CARVEDILOL 6.25 MG TABLET PO SCH (20:34)
[2024-05-30] VITALS (14 sets, daily range): BP systolic 151–185; BP diastolic 76–99; PULSE 61–74; RESP 18–20; TEMP 97.7–98.5; O2SAT 95–98
[2024-05-30] MEDS: ASPIRIN 81 MG CHEWABLE TABLET PO SCH (08:51)
[2024-05-30] MEDS: FOLIC ACID 1 MG TABLET PO SCH (08:51)
[2024-05-30] MEDS ORDERED: SODIUM CHLORIDE 0.9% 1,000 ML ONE (14:57)
[2024-05-30] MEDS: DiphenhydrAMINE HCL 50 MG/ML VIAL IVP ONE (16:58)
[2024-05-30] MEDS: OxyCODONE HCL/ACETAMINOPHEN 10-325 MG TABLET PO PRN (17:53)
[2024-05-30] MEDS ORDERED: DiphenhydrAMINE HCL 50 MG/ML VIAL ONE (22:08)
[2024-05-30] MEDS ORDERED: HEPARIN SODIUM,PORCINE 1,000 UNITS/ML VIAL ONE (22:08)
[2024-05-31 05:19] VITALS: BP 169/77; PULSE 64; RESP 19; TEMP 98.2; O2SAT 95
[2024-05-31 08:27] VITALS: BP 169/94; PULSE 61; RESP 18; TEMP 100; O2SAT 94
[2024-05-31] MEDS ORDERED: SODIUM CHLORIDE 0.9% 500 ML IV ONE (16:02)
[2024-05-31 16:13] VITALS: BP 166/80; PULSE 64; RESP 18; TEMP 98; O2SAT 98
[2024-05-31 20:04] VITALS: BP 157/85; PULSE 64; RESP 18; TEMP 98.4; O2SAT 98
[2024-06-01] VITALS (12 sets, daily range): BP systolic 149–180; BP diastolic 68–101; PULSE 62–74; RESP 18–20; TEMP 97.8–98.5; O2SAT 97–98
[2024-06-01] MEDS ORDERED: AMOX1TAB41 PO (13:57)
[2024-06-01] MEDS ORDERED: SODIUM CHLORIDE 0.9% 2,000 ML ONE (17:24)
[2024-06-01] MEDS: HEPARIN SODIUM,PORCINE 1,000 UNITS/ML VIAL IVCATH ONE ×2 (21:30→21:31)
[2024-06-01] MEDS: ONDANSETRON HCL 4 MG/2 ML VIAL IVP ONE (22:26)
[2024-06-01] MEDS ORDERED: HEPARIN SODIUM,PORCINE 1,000 UNITS/ML VIAL ONE (23:16)
[2024-06-01] MEDS ORDERED: DiphenhydrAMINE HCL 50 MG/ML VIAL ONE (23:16)
[2024-06-02 04:52] VITALS: BP 136/72; PULSE 59; RESP 18; TEMP 98.4; O2SAT 99
[2024-06-02 09:39] VITALS: BP 148/78; PULSE 62; RESP 20; TEMP 98.3; O2SAT 98
== END 2024-06-02 14:41 | disposition home or self-care (01) | DRG 689 ==
LOC: EMS 08:28 → EDH 15:53 → 5S 18:06 → 6S 05-29 16:18 → 4E 05-30 05:22
PROVIDERS: ADMIT Internal Medicine; ATTEND Internal Medicine
PROC: 05HA33Z Insertion of Infusion Device into Left Brachial Vein, Percutaneous Approach (ICD-10-PCS; 2024-05-28)
PROC: 5A1D70Z Performance of Urinary Filtration, Intermittent, Less than 6 Hours Per Day (ICD-10-PCS; principal; 2024-05-30)
PROC: 5A1D70Z Performance of Urinary Filtration, Intermittent, Less than 6 Hours Per Day (ICD-10-PCS; 2024-06-01)
DX: N39.0 Urinary tract infection, site not specified (principal); N18.6 End stage renal disease; E46 Unspecified protein-calorie malnutrition; I12.0 Hypertensive chronic kidney disease with stage 5 chronic kidney disease or end stage renal disease; F11.20 Opioid dependence, uncomplicated; D64.9 Anemia, unspecified; E78.5 Hyperlipidemia, unspecified; B96.20 Unspecified Escherichia coli [E. coli] as the cause of diseases classified elsewhere; Z79.82 Long term (current) use of aspirin; Z79.899 Other long term (current) drug therapy; Z82.49 Family history of ischemic heart disease and other diseases of the circulatory system; Z86.19 Personal history of other infectious and parasitic diseases; Z99.2 Dependence on renal dialysis; Z68.25 Body mass index [BMI] 25.0-25.9, adult
CPT/HCPCS: 36245; 36569; 71045; 74176; 76937; 80048; 81001; 81002; 83690; 84484; 85025; 87086; 87186; 87340; 90935; 93005; 99285; G0378; J0696; J1170; J1200; J1644; J2270; J2405; J3490; J7030; J7040; J7060; Q0162; 36415-L1; 36415-TC

== ENCOUNTER 2024-06-03 15:12 | Inpatient (IN) | payer MEDICARE, OTHER ==
[~2024-06-03] VITALS: Ht 170.2 cm; Wt 69.0 kg
[~2024-06-03 15:12] MED LIST changes: +AMOX1TAB41 PO; -CEPH500C2 PO
[2024-06-03] MEDS: ASPIRIN 81 MG CHEWABLE TABLET PO ONE (16:45)
[2024-06-03 16:58] LABS: EOSINOPHILS % (AUTO) 5.8 % (1.0-6.0); HEMATOCRIT 28.2 % (36-46); HEMOGLOBIN 9.2 g/dL (12.0-16.0); LYMPHOCYTES # (AUTO) 0.7 K/uL (1.0-4.8); LYMPHOCYTES % (AUTO) 18.5 % (22.0-44.0); MEAN CORPUSCULAR HEMOGLOBIN 29.5 pg (26.0-34.0); MEAN CORPUSCULAR HGB CONC 32.7 G/dL (31.0-37.0); MEAN CORPUSCULAR VOLUME 90 fL (80-100); MONOCYTES # (AUTO) 0.3 K/uL (0.1-1.0); MONOCYTES % (AUTO) 6.7 % (2.0-9.0); NEUTROPHILS # (AUTO) 2.5 K/uL (1.8-7.7); PLATELET COUNT (AUTO) 88 K/uL (150-450); RED BLOOD CELL COUNT(AUTO) 3.13 MIL/uL (4.00-5.20); RED CELL DISTRIBUTION WIDTH 17.7 % (11.5-14.5); WHITE BLOOD COUNT (AUTO) 3.7 K/uL (4.5-11.0)
[2024-06-03 16:58] LABS: COVID AG,FIA SOURCE NASAL SWAB
[2024-06-03 17:11] LABS: CALCIUM, TOTAL 8.8 mg/dL (8.8-10.5); CREATININE 7.93 mg/dL (0.60-1.30); POTASSIUM 4.6 mmol/L (3.5-5.1)
[2024-06-03 17:17] LABS: ALBUMIN 2.7 g/dL (3.4-5.0); BILIRUBIN,TOTAL 0.5 mg/dL (0.1-1.0); TOTAL PROTEIN, SERUM 7.2 g/dL (6.4-8.2)
[2024-06-03 17:18] LABS: PROTHROMBIN TIME 10.2 SEC (9.4-11.6); TROPONIN I-HIGH SENSITIVITY 35 ng/L (<51)
[2024-06-03 17:29] LABS: SARS-COV2 (COVID) ANTIGEN,FIA Negative (Negative)
[2024-06-03] MEDS: HYDROmorphone HCL 2 MG/ML SYRINGE IVP ONE (20:17)
[2024-06-03] MEDS: DiphenhydrAMINE HCL 50 MG/ML VIAL IVP ONE (20:17)
[2024-06-03 22:43] LABS: TROPONIN I-HIGH SENSITIVITY 38 ng/L (<51)
[2024-06-04] VITALS (11 sets, daily range): BP systolic 152–183; BP diastolic 75–94; PULSE 62–85; RESP 17–21; TEMP 98.2–99.1; O2SAT 95–98
[2024-06-04] MEDS ORDERED: ZOLPIDEM TARTRATE 5 MG TABLET PO PRN (02:15)
[2024-06-04] MEDS ORDERED: ONDANSETRON HCL 4 MG/2 ML VIAL IVP PRN (02:15)
[2024-06-04] MEDS ORDERED: ALBUTEROL SULFATE 2.5 MG/0.5 ML NEB SOLUTION NEB PRN (02:15)
[2024-06-04] MEDS ORDERED: IPRATROPIUM BROMIDE 0.5 MG/2.5 ML NEB SOLUTION NEB PRN (02:15)
[2024-06-04] MEDS: ACETAMINOPHEN 325 MG TABLET PO PRN (02:57)
[2024-06-04] MEDS: DiphenhydrAMINE HCL 25 MG CAPSULE PO PRN (02:57)
[2024-06-04] MEDS ORDERED: CARV6 PO (08:07)
[2024-06-04] MEDS ORDERED: PARICALCITOL 1 MCG CAPSULE PO SCH (09:00)
[2024-06-04] MEDS: SODIUM ZIRCONIUM CYCLOSILICATE 5 GM POWDER PACKET PO SCH (09:00)
[2024-06-04] MEDS: EPOETIN ALFA 10,000 UNITS/ML VIAL SQ SCH (09:00)
[2024-06-04] MEDS: CARVEDILOL 6.25 MG TABLET PO SCH (09:23)
[2024-06-04] MEDS: DOCUSATE SODIUM 100 MG CAPSULE PO SCH (09:24)
[2024-06-04] MEDS: ASPIRIN 81 MG CHEWABLE TABLET PO SCH (09:24)
[2024-06-04] MEDS: PANTOPRAZOLE SODIUM 40 MG DR TABLET PO SCH (09:24)
[2024-06-04] MEDS: FOLIC ACID 1 MG TABLET PO SCH (09:24)
[2024-06-04] MEDS: ATORVASTATIN CALCIUM 20 MG TABLET PO SCH (09:24)
[2024-06-04] MEDS: HEPARIN SODIUM,PORCINE 5,000 UNITS/ML VIAL SQ SCH (09:25)
[2024-06-04] MEDS: HYDROmorphone HCL 2 MG/ML SYRINGE IVP PRN (09:33)
[2024-06-04] MEDS: PARICALCITOL 1 MCG CAPSULE PO SCH (09:51)
[2024-06-04] MEDS: SERTRALINE HCL 100 MG TABLET PO SCH (09:51)
[2024-06-04] MEDS: LISINOPRIL 5 MG TABLET PO SCH (09:52)
[2024-06-04] MEDS ORDERED: BENZOCAINE/MENTHOL LOZENGE PO PRN (11:30)
[2024-06-04] MEDS: AMOX TR/POT CLAV 875 MG/125 MG TABLET PO ONE (12:06)
[2024-06-04] MEDS: SEVELAMER CARBONATE 800 MG TABLET PO SCH (12:06)
[2024-06-04 12:40] LABS: TROPONIN I-HIGH SENSITIVITY 47 ng/L (<51)
[2024-06-04] MEDS: DiphenhydrAMINE HCL 50 MG/ML VIAL IVP PRN (13:49)
[2024-06-04] MEDS ORDERED: SODIUM CHLORIDE 0.9% 1,000 ML ONE (13:53)
[2024-06-04] MEDS: DiphenhydrAMINE HCL 50 MG/ML VIAL IVP ONE (17:19)
[2024-06-04] MEDS: AmLODIPine BESYLATE 10 MG TABLET PO SCH (20:15)
[2024-06-04] MEDS: AMOX TR/POT CLAV 875 MG/125 MG TABLET PO SCH (20:15)
[2024-06-05] VITALS (9 sets, daily range): BP systolic 155–175; BP diastolic 69–93; PULSE 65–79; RESP 18; TEMP 99.4–99.6; O2SAT 96–99
[2024-06-05] MEDS ORDERED: SODIUM CHLORIDE 0.9% 1,000 ML ONE ×4 (06:33→09:41)
[2024-06-05 06:39] LABS: HEMOGLOBIN 9.8 g/dL (12.0-16.0); MEAN CORPUSCULAR HEMOGLOBIN 30.3 pg (26.0-34.0); MEAN CORPUSCULAR HGB CONC 33.8 G/dL (31.0-37.0); MEAN CORPUSCULAR VOLUME 89 fL (80-100); PLATELET COUNT (AUTO) 80 K/uL (150-450); RED BLOOD CELL COUNT(AUTO) 3.24 MIL/uL (4.00-5.20); RED CELL DISTRIBUTION WIDTH 17.5 % (11.5-14.5); WHITE BLOOD COUNT (AUTO) 3.5 K/uL (4.5-11.0)
[2024-06-05 06:56] LABS: CALCIUM, TOTAL 8.8 mg/dL (8.8-10.5); CREATININE 5.94 mg/dL (0.60-1.30); POTASSIUM 4.3 mmol/L (3.5-5.1)
[2024-06-05 07:19] LABS: BAND NEUTROPHILS % (MANUAL) 2 % (0-5); LYMPHOCYTES % (MANUAL) 22 % (22-44); MONOCYTES % (MANUAL) 11 % (2-9); SEGMENTED NEUTROPHILS % 65 % (40-70); TOTAL CELLS COUNTED 100
[2024-06-05 07:20] LABS: RBC MORPHOLOGY COMMENT NORMAL RBC MORPH
[2024-06-05] MEDS: DiphenhydrAMINE HCL 50 MG/ML VIAL IVP ONE (08:32)
[2024-06-05] MEDS ORDERED: DiphenhydrAMINE HCL 50 MG/ML VIAL IVP ONE (12:00)
[2024-06-05] MEDS ORDERED: HEPARIN SODIUM,PORCINE 1,000 UNITS/ML VIAL IVP ONE ×2 (12:00)
== END 2024-06-05 14:15 | disposition home or self-care (01) | DRG 152 ==
LOC: EMS 15:14 → EDH 06-04 02:18 → 6N 06-04 07:55
PROVIDERS: ADMIT Hospitalist; ATTEND Hospitalist
PROC: 5A1D70Z Performance of Urinary Filtration, Intermittent, Less than 6 Hours Per Day (ICD-10-PCS; principal; 2024-06-04)
PROC: 5A1D70Z Performance of Urinary Filtration, Intermittent, Less than 6 Hours Per Day (ICD-10-PCS; 2024-06-05)
DX: J02.9 Acute pharyngitis, unspecified (principal); N18.6 End stage renal disease; N39.0 Urinary tract infection, site not specified; I13.11 Hypertensive heart and chronic kidney disease without heart failure, with stage 5 chronic kidney disease, or end stage renal disease; F11.20 Opioid dependence, uncomplicated; Q61.3 Polycystic kidney, unspecified; N25.81 Secondary hyperparathyroidism of renal origin; E46 Unspecified protein-calorie malnutrition; I50.32 Chronic diastolic (congestive) heart failure; R64 Cachexia; Z20.822 Contact with and (suspected) exposure to COVID-19; E78.5 Hyperlipidemia, unspecified; E11.22 Type 2 diabetes mellitus with diabetic chronic kidney disease; D63.1 Anemia in chronic kidney disease; E83.51 Hypocalcemia; E83.39 Other disorders of phosphorus metabolism; L50.9 Urticaria, unspecified; G89.4 Chronic pain syndrome; R62.7 Adult failure to thrive; B96.20 Unspecified Escherichia coli [E. coli] as the cause of diseases classified elsewhere; E88.09 Other disorders of plasma-protein metabolism, not elsewhere classified; Z99.2 Dependence on renal dialysis; Z79.82 Long term (current) use of aspirin; Z82.49 Family history of ischemic heart disease and other diseases of the circulatory system; Z82.71 Family history of polycystic kidney; Z83.3 Family history of diabetes mellitus; Z91.199 Patient's noncompliance with other medical treatment and regimen due to unspecified reason; Z79.899 Other long term (current) drug therapy; Z88.6 Allergy status to analgesic agent; Z91.013 Allergy to seafood; Z90.49 Acquired absence of other specified parts of digestive tract; Z68.23 Body mass index [BMI] 23.0-23.9, adult
CPT/HCPCS: 70490; 71045; 80048; 80053; 82550; 83880; 84484; 84703; 85025; 85610; 85730; 87081; 87340; 87430; 90935; 93005; 93306; 99285; J0885; J1170; J1200; J1644; J7030; 36415-L1; 36415-TC

== ENCOUNTER → 2024-06-26 | Emergency (ER) | payer MEDICARE, OTHER ==
[~2024-06-26] VITALS: Ht 170.2 cm; Wt 68.0 kg
[~2024-06-26] MED LIST changes: -AMLO-257 PO; +AMLO-258 PO; -AMOX1TAB41 PO; +AZIT-164 PO; +CARV6 PO; -CARV6.2534 PO; +HYDR-4072 PO; -LISI-892 PO; -MIDO5TAB5 PO; +PRED-554 PO; -SODI5POW3 PO
[2024-06-26 10:56] VITALS: TEMP 97.7
[2024-06-26] MEDS: HYDROCODONE/ACETAMINOPHEN 5-325 MG TABLET PO ONE (12:19)
[2024-06-26] MEDS: LIDOCAINE 5% TRANSDERMAL PATCH TD ONE (12:21)
[2024-06-26 12:59] VITALS: BP 189/105; PULSE 64; RESP 16; O2SAT 99
== END | disposition home or self-care (01) ==
LOC: EMS 13:04
DX: M25.562 Pain in left knee (principal); M25.572 Pain in left ankle and joints of left foot; I10 Essential (primary) hypertension; Z88.5 Allergy status to narcotic agent; Z91.013 Allergy to seafood
CPT/HCPCS: 99283

== ENCOUNTER 2024-10-02 17:09 | Inpatient (IN) | payer MEDICARE, OTHER ==
[~2024-10-02] VITALS: Ht 170.2 cm; Wt 72.0 kg
[2024-10-02 17:38] LABS: EOSINOPHILS % (AUTO) 4.3 % (1.0-6.0); HEMATOCRIT 30.2 % (36-46); HEMOGLOBIN 10.3 g/dL (12.0-16.0); LYMPHOCYTES # (AUTO) 0.4 K/uL (1.0-4.8); LYMPHOCYTES % (AUTO) 14.9 % (22.0-44.0); MEAN CORPUSCULAR HEMOGLOBIN 31.5 pg (26.0-34.0); MEAN CORPUSCULAR HGB CONC 34.2 G/dL (31.0-37.0); MEAN CORPUSCULAR VOLUME 92 fL (80-100); MONOCYTES # (AUTO) 0.2 K/uL (0.1-1.0); NEUTROPHILS # (AUTO) 1.9 K/uL (1.8-7.7); NEUTROPHILS % (AUTO) 71.8 % (40.0-70.0); PLATELET COUNT (AUTO) 71 K/uL (150-450); RED BLOOD CELL COUNT(AUTO) 3.28 MIL/uL (4.00-5.20); RED CELL DISTRIBUTION WIDTH 15.8 % (11.5-14.5); WHITE BLOOD COUNT (AUTO) 2.7 K/uL (4.5-11.0)
[2024-10-02 17:48] LABS: CALCIUM, TOTAL 8.5 mg/dL (8.8-10.5); CREATININE 6.05 mg/dL (0.60-1.30)
[2024-10-02 17:54] LABS: ALBUMIN 2.6 g/dL (3.4-5.0); BILIRUBIN,DIRECT 0.1 mg/dL (0.00-0.20); BILIRUBIN,TOTAL 0.5 mg/dL (0.1-1.0); TOTAL PROTEIN, SERUM 6.7 g/dL (6.4-8.2)
[2024-10-02 17:55] LABS: TROPONIN I-HIGH SENSITIVITY 51 ng/L (<51)
[2024-10-02] MEDS ORDERED: PANT40TA54 PO (18:55)
[2024-10-02] MEDS ORDERED: CYAN500T56 PO (18:55)
[2024-10-02] MEDS ORDERED: ASPI-1444 PO (18:55)
[2024-10-02] MEDS ORDERED: FERR325T23 PO (18:55)
[2024-10-02] MEDS ORDERED: LABE100T8 PO (18:55)
[2024-10-02] MEDS ORDERED: LEVO150T11 PO (18:55)
[2024-10-02] MEDS ORDERED: HYDR50TA37 PO (18:55)
[2024-10-02] MEDS ORDERED: ISOS60TA77 PO (18:55)
[2024-10-02] MEDS ORDERED: SODI5POW3 PO (18:55)
[2024-10-02] MEDS ORDERED: CHOL25TA4 PO (18:55)
[2024-10-02] MEDS ORDERED: FURO40TA6 PO (18:55)
[2024-10-02] MEDS ORDERED: LISI5TAB21 PO (18:55)
[2024-10-02] MEDS: OxyCODONE HCL/ACETAMINOPHEN 10-325 MG TABLET PO PRN (19:02)
[2024-10-02] MEDS ORDERED: HYDROmorphone HCL 2 MG TABLET PO PRN (19:15)
[2024-10-02] MEDS: DOCUSATE SODIUM 100 MG CAPSULE PO SCH (20:24)
[2024-10-02 20:51] LABS: APPEARANCE,URINE TURBID (CLEAR); BILIRUBIN,URINE NEGATIVE (NEGATIVE); COLOR,URINE LIGHT ORANGE (YELLOW); GLUCOSE, URINE (UA) 70-100 mg/dL (NEGATIVE); KETONES,URINE NEGATIVE (NEGATIVE); LEUKOCYTE ESTERASE ,URINE LARGE (NEGATIVE); NITRATE,URINE NEGATIVE (NEGATIVE); OCCULT BLOOD,URINE LARGE (NEGATIVE); PH,URINE 8.5 (5.0-8.0); PROTEIN,URINE 300-600,SEE CONFIRM mg/dL (NEGATIVE); SPECIFIC GRAVITIY, URINE 1.007 (1.003-1.030); UROBILINOGEN,URINE <=1.0 mg/dL (<=1.0)
[2024-10-02 21:16] LABS: BACTERIA,URINE Moderate /HPF (None Seen); WBC,URINE 51-100 /HPF (0-5)
[2024-10-02 21:17] LABS: SQUAMOUS EPITHELIAL CELL,UR Moderate /LPF (None Seen)
[2024-10-02 21:20] LABS: SULFOSALICYLIC ACID,URINE 1+ (Negative)
[2024-10-02] MEDS: DiphenhydrAMINE HCL 50 MG/ML VIAL IVP PRN (21:32)
[2024-10-02] MEDS: HYDROmorphone HCL 2 MG/ML SYRINGE IVP PRN (21:32)
[2024-10-02 22:46] VITALS: BP 179/98; PULSE 58; RESP 18; TEMP 97.9; O2SAT 100
[2024-10-02] MEDS: CloNIDine HCL 0.1 MG TABLET PO PRN (23:00)
[2024-10-03] VITALS (14 sets, daily range): BP systolic 153–191; BP diastolic 74–112; PULSE 51–66; RESP 17–18; TEMP 97–98.1; O2SAT 100
[2024-10-03] MEDS: HEPARIN SODIUM,PORCINE 5,000 UNITS/ML VIAL SQ SCH
[2024-10-03] MEDS: ACETAMINOPHEN 325 MG TABLET PO PRN (02:25)
[2024-10-03 07:54] LABS: EOSINOPHILS % (AUTO) 5.2 % (1.0-6.0); HEMATOCRIT 28.2 % (36-46); HEMOGLOBIN 9.7 g/dL (12.0-16.0); LYMPHOCYTES # (AUTO) 0.6 K/uL (1.0-4.8); LYMPHOCYTES % (AUTO) 27.5 % (22.0-44.0); MEAN CORPUSCULAR HEMOGLOBIN 31.2 pg (26.0-34.0); MEAN CORPUSCULAR HGB CONC 34.4 G/dL (31.0-37.0); MEAN CORPUSCULAR VOLUME 91 fL (80-100); MONOCYTES # (AUTO) 0.4 K/uL (0.1-1.0); MONOCYTES % (AUTO) 16.1 % (2.0-9.0); NEUTROPHILS # (AUTO) 1.2 K/uL (1.8-7.7); NEUTROPHILS % (AUTO) 50.2 % (40.0-70.0); PLATELET COUNT (AUTO) 62 K/uL (150-450); RED BLOOD CELL COUNT(AUTO) 3.11 MIL/uL (4.00-5.20); RED CELL DISTRIBUTION WIDTH 15.6 % (11.5-14.5); WHITE BLOOD COUNT (AUTO) 2.3 K/uL (4.5-11.0)
[2024-10-03 08:02] LABS: CALCIUM, TOTAL 8.4 mg/dL (8.8-10.5); CREATININE 7.69 mg/dL (0.60-1.30); POTASSIUM 4.4 mmol/L (3.5-5.1)
[2024-10-03 08:05] LABS: TROPONIN I-HIGH SENSITIVITY 42 ng/L (<51)
[2024-10-03] MEDS: AmLODIPine BESYLATE 10 MG TABLET PO SCH (08:39)
[2024-10-03] MEDS: FAMOTIDINE 20 MG TABLET PO SCH (08:39)
[2024-10-03] MEDS: *CLINICAL-MEROPENEM DOSING CLINICAL ONE (08:53)
[2024-10-03] MEDS: LOSARTAN POTASSIUM 50 MG TABLET PO SCH (11:04)
[2024-10-03] MEDS ORDERED: SODIUM CHLORIDE 0.9% 500 ML IV ONE (15:07)
[2024-10-03] MEDS: HydrALAZINE HCL 20 MG/ML VIAL IVP PRN (15:09)
[2024-10-03] MEDS: MEROPENEM 500 MG in SODIUM CHLORIDE 0.9% 50 ML IV SCH (15:10)
[2024-10-03] MEDS: DiphenhydrAMINE HCL 50 MG/ML VIAL IVP PRN (15:25)
[2024-10-03] MEDS: HEPARIN SODIUM,PORCINE 1,000 UNITS/ML VIAL IVCATH ONE ×2 (15:25)
[2024-10-03] MEDS: HYDROmorphone HCL 2 MG/ML SYRINGE IVP PRN (16:05)
[2024-10-04 00:17] VITALS: BP 165/94; PULSE 63; RESP 18; TEMP 98.5; O2SAT 95
[2024-10-04 05:29] VITALS: BP 157/101; PULSE 59; RESP 18; TEMP 98.2; O2SAT 96
[2024-10-04 07:46] LABS: EOSINOPHILS % (AUTO) 3.3 % (1.0-6.0); HEMATOCRIT 31.1 % (36-46); HEMOGLOBIN 10.8 g/dL (12.0-16.0); LYMPHOCYTES # (AUTO) 0.6 K/uL (1.0-4.8); LYMPHOCYTES % (AUTO) 22.5 % (22.0-44.0); MEAN CORPUSCULAR HEMOGLOBIN 31.5 pg (26.0-34.0); MEAN CORPUSCULAR HGB CONC 34.7 G/dL (31.0-37.0); MEAN CORPUSCULAR VOLUME 91 fL (80-100); MONOCYTES # (AUTO) 0.5 K/uL (0.1-1.0); MONOCYTES % (AUTO) 18.8 % (2.0-9.0); NEUTROPHILS # (AUTO) 1.4 K/uL (1.8-7.7); NEUTROPHILS % (AUTO) 54.4 % (40.0-70.0); PLATELET COUNT (AUTO) 85 K/uL (150-450); RED BLOOD CELL COUNT(AUTO) 3.42 MIL/uL (4.00-5.20); RED CELL DISTRIBUTION WIDTH 15.1 % (11.5-14.5); WHITE BLOOD COUNT (AUTO) 2.6 K/uL (4.5-11.0)
[2024-10-04 07:51] VITALS: BP 179/104; PULSE 61; RESP 18; TEMP 97.8; O2SAT 97
[2024-10-04 07:59] LABS: CALCIUM, TOTAL 8.5 mg/dL (8.8-10.5); CREATININE 5.3 mg/dL (0.60-1.30); POTASSIUM 4.7 mmol/L (3.5-5.1)
[2024-10-04 11:22] VITALS: BP 151/92; PULSE 59; RESP 19; TEMP 98.2; O2SAT 96
[2024-10-04 15:37] VITALS: BP 157/94; PULSE 66; RESP 18; TEMP 97.8; O2SAT 95
[2024-10-04 20:07] VITALS: BP 166/94; PULSE 67; RESP 18; TEMP 98.3; O2SAT 96
[2024-10-05] VITALS (14 sets, daily range): BP systolic 141–189; BP diastolic 90–111; PULSE 65–80; RESP 17–18; TEMP 97.4–98.9; O2SAT 94–98
[2024-10-05 08:46] LABS: EOSINOPHILS % (AUTO) 3.6 % (1.0-6.0); HEMATOCRIT 32.2 % (36-46); HEMOGLOBIN 10.8 g/dL (12.0-16.0); LYMPHOCYTES # (AUTO) 0.5 K/uL (1.0-4.8); LYMPHOCYTES % (AUTO) 16.2 % (22.0-44.0); MEAN CORPUSCULAR HEMOGLOBIN 30.7 pg (26.0-34.0); MEAN CORPUSCULAR HGB CONC 33.5 G/dL (31.0-37.0); MEAN CORPUSCULAR VOLUME 92 fL (80-100); MONOCYTES # (AUTO) 0.3 K/uL (0.1-1.0); MONOCYTES % (AUTO) 11.3 % (2.0-9.0); NEUTROPHILS # (AUTO) 1.9 K/uL (1.8-7.7); NEUTROPHILS % (AUTO) 67.9 % (40.0-70.0); PLATELET COUNT (AUTO) 88 K/uL (150-450); RED BLOOD CELL COUNT(AUTO) 3.51 MIL/uL (4.00-5.20); RED CELL DISTRIBUTION WIDTH 15.6 % (11.5-14.5); WHITE BLOOD COUNT (AUTO) 2.8 K/uL (4.5-11.0)
[2024-10-05] MEDS: EPOETIN ALFA 10,000 UNITS/ML 2 ML VIAL SQ SCH (08:58)
[2024-10-05 09:11] LABS: CREATININE 7.46 mg/dL (0.60-1.30); POTASSIUM 4.9 mmol/L (3.5-5.1)
[2024-10-05] MEDS: LABETALOL HCL 100 MG TABLET PO SCH (11:30)
[2024-10-05] MEDS ORDERED: DiphenhydrAMINE HCL 50 MG/ML VIAL ONE (12:00)
[2024-10-05] MEDS ORDERED: HEPARIN SODIUM,PORCINE 1,000 UNITS/ML VIAL ONE (12:00)
[2024-10-05] MEDS: HEPARIN SODIUM,PORCINE 1,000 UNITS/ML VIAL IVCATH ONE ×2 (22:38)
[2024-10-06] VITALS (13 sets, daily range): BP systolic 131–198; BP diastolic 58–113; PULSE 57–64; RESP 17–18; TEMP 97–98.7; O2SAT 94–99
[2024-10-06] MEDS: DiphenhydrAMINE HCL 50 MG/ML VIAL IVP PRN (10:03)
[2024-10-06] MEDS: ONDANSETRON HCL 4 MG/2 ML VIAL IVP PRN (11:16)
[2024-10-06] MEDS: HEPARIN SODIUM,PORCINE 1,000 UNITS/ML VIAL IVCATH ONE ×2 (11:26→11:27)
[2024-10-06] MEDS ORDERED: DiphenhydrAMINE HCL 50 MG/ML VIAL ONE (12:00)
[2024-10-06] MEDS ORDERED: HEPARIN SODIUM,PORCINE 1,000 UNITS/ML VIAL ONE (12:00)
[2024-10-06 19:31] LABS: GLUCOMETER DEV NAME(LOC) 5N.2C; GLUCOSE,POINT OF CARE 142 MG/DL (70-110)
[2024-10-07] VITALS (17 sets, daily range): BP systolic 135–211; BP diastolic 81–116; PULSE 59–79; RESP 18–20; TEMP 97.6–98.8; O2SAT 96–100
[2024-10-07] MEDS: LORazepam 0.5 MG TABLET PO ONE (11:15)
[2024-10-07] MEDS ORDERED: DiphenhydrAMINE HCL 50 MG/ML VIAL IVP ONE (12:00)
[2024-10-07] MEDS ORDERED: HEPARIN SODIUM,PORCINE 1,000 UNITS/ML VIAL IVP ONE (12:00)
[2024-10-08 05:23] VITALS: BP 188/91; PULSE 68; RESP 20; TEMP 98.1; O2SAT 97
[2024-10-08 09:30] VITALS: BP 173/88; PULSE 69; RESP 18; TEMP 97.9; O2SAT 97
[2024-10-08] MEDS: HydrALAZINE HCL 25 MG TABLET PO ONE (09:54)
[2024-10-08 12:37] VITALS: BP 146/60; PULSE 68; RESP 18; TEMP 98; O2SAT 98
[2024-10-08] MEDS ORDERED: HydrALAZINE HCL 25 MG TABLET PO SCH (16:00)
== END 2024-10-08 16:05 | disposition home or self-care (01) | DRG 304 ==
LOC: EMS 17:09 → EDH 19:05 → 5S 22:25
PROVIDERS: ADMIT Internal Medicine; ATTEND Internal Medicine
PROC: 5A1D70Z Performance of Urinary Filtration, Intermittent, Less than 6 Hours Per Day (ICD-10-PCS; principal; 2024-10-03)
PROC: 5A1D70Z Performance of Urinary Filtration, Intermittent, Less than 6 Hours Per Day (ICD-10-PCS; 2024-10-05)
PROC: 5A1D70Z Performance of Urinary Filtration, Intermittent, Less than 6 Hours Per Day (ICD-10-PCS; 2024-10-06)
PROC: 5A1D70Z Performance of Urinary Filtration, Intermittent, Less than 6 Hours Per Day (ICD-10-PCS; 2024-10-07)
DX: I16.0 Hypertensive urgency (principal); N18.6 End stage renal disease; E46 Unspecified protein-calorie malnutrition; N25.81 Secondary hyperparathyroidism of renal origin; N39.0 Urinary tract infection, site not specified; F11.20 Opioid dependence, uncomplicated; I13.11 Hypertensive heart and chronic kidney disease without heart failure, with stage 5 chronic kidney disease, or end stage renal disease; D63.1 Anemia in chronic kidney disease; E83.51 Hypocalcemia; E83.39 Other disorders of phosphorus metabolism; R62.7 Adult failure to thrive; G89.4 Chronic pain syndrome; E87.5 Hyperkalemia; E11.22 Type 2 diabetes mellitus with diabetic chronic kidney disease; G47.00 Insomnia, unspecified; F41.9 Anxiety disorder, unspecified; R00.1 Bradycardia, unspecified; N28.1 Cyst of kidney, acquired; L50.9 Urticaria, unspecified; Z82.49 Family history of ischemic heart disease and other diseases of the circulatory system; Z83.3 Family history of diabetes mellitus; Z88.5 Allergy status to narcotic agent; Z99.2 Dependence on renal dialysis; Z91.013 Allergy to seafood; Z88.8 Allergy status to other drugs, medicaments and biological substances; Z68.24 Body mass index [BMI] 24.0-24.9, adult; Z91.158 Patient's noncompliance with renal dialysis for other reason; Z79.899 Other long term (current) drug therapy; Z79.82 Long term (current) use of aspirin; Z90.49 Acquired absence of other specified parts of digestive tract; Z76.5 Malingerer [conscious simulation]
CPT/HCPCS: 71045; 80048; 80076; 81001; 81002; 82962; 83880; 84484; 85025; 87086; 87340; 90935; 93005; 99285; G0378; J0360; J0885; J1171; J1200; J1644; J2185; J2405; J7040; J7050; 36415-L1; 36415-TC

== ENCOUNTER 2024-10-26 22:03 | Emergency (ER) | payer MEDICARE, OTHER ==
[~2024-10-26 22:03] MED LIST changes: -AMLO10TA55 PO; +ASPI-1444 PO; -ASPI-1450 PO; -AZIT-164 PO; -CARV6 PO; +CHOL25TA4 PO; +CYAN500T56 PO; +FURO40TA6 PO; -HYDR-4072 PO; +HYDR50TA37 PO; +ISOS60TA77 PO; +LABE100T8 PO; +LEVO150T11 PO; +PANT40TA54 PO; -PARI1CAP11 PO; -PRED-554 PO; +SODI5POW3 PO
== END 2024-10-26 23:31 | disposition left against medical advice (07) ==
LOC: EMS 22:03
DX: Z53.21 Procedure and treatment not carried out due to patient leaving prior to being seen by health care provider (principal)

== ENCOUNTER 2024-11-01 13:11 | Inpatient (IN) | payer MEDICARE, OTHER ==
[~2024-11-01] VITALS: Ht 170.2 cm; Wt 65.9 kg
[2024-11-01 15:15] LABS: BASOPHILS % (AUTO) 1.9 % (0.0-2.0); EOSINOPHILS % (AUTO) 7.5 % (1.0-6.0); HEMATOCRIT 32.7 % (36-46); HEMOGLOBIN 10.6 g/dL (12.0-16.0); LYMPHOCYTES # (AUTO) 0.8 K/uL (1.0-4.8); LYMPHOCYTES % (AUTO) 21.1 % (22.0-44.0); MEAN CORPUSCULAR HEMOGLOBIN 29.6 pg (26.0-34.0); MEAN CORPUSCULAR HGB CONC 32.5 G/dL (31.0-37.0); MEAN CORPUSCULAR VOLUME 91 fL (80-100); MONOCYTES # (AUTO) 0.4 K/uL (0.1-1.0); MONOCYTES % (AUTO) 10.4 % (2.0-9.0); NEUTROPHILS # (AUTO) 2.3 K/uL (1.8-7.7); NEUTROPHILS % (AUTO) 59.1 % (40.0-70.0); PLATELET COUNT (AUTO) 121 K/uL (150-450); RED BLOOD CELL COUNT(AUTO) 3.58 MIL/uL (4.00-5.20); RED CELL DISTRIBUTION WIDTH 16.2 % (11.5-14.5); WHITE BLOOD COUNT (AUTO) 3.8 K/uL (4.5-11.0)
[2024-11-01 15:24] LABS: ANION GAP 9 mmol/L (8-16); CALCIUM, TOTAL 9.1 mg/dL (8.8-10.5); CARBON DIOXIDE 31 mmol/L (22-29); CHLORIDE 101 mmol/L (98-107); CREATININE 7.59 mg/dL (0.60-1.30); GLOMERULAR FILTR. RATE CALC 6 mL/min (>60); GLUCOSE,RANDOM 103 mg/dL (70-110); POTASSIUM 4.6 mmol/L (3.5-5.1); SODIUM SERUM 141 mmol/L (136-145); UREA NITROGEN, BLOOD 37 mg/dL (7-18)
[2024-11-01 15:27] LABS: PROTHROMBIN TIME 10.5 SEC (9.4-11.6)
[2024-11-01 15:32] LABS: B-TYPE NATRIURETIC PEPTIDE 1140 pg/mL (0-100)
[2024-11-01 15:34] LABS: ALANINE AMINOTRANSFERASE 9 U/L (12-78); ALBUMIN 2.8 g/dL (3.4-5.0); ALKALINE PHOSPHATASE 84 U/L (46-116); ASPARTATE AMINOTRANSFERASE 19 U/L (15-37); BILIRUBIN,TOTAL 0.5 mg/dL (0.1-1.0); CREATINE KINASE, TOTAL ONLY 36 U/L (26-192); TOTAL PROTEIN, SERUM 7.2 g/dL (6.4-8.2)
[2024-11-01 15:36] LABS: TROPONIN I-HIGH SENSITIVITY 64 ng/L (<51)
[2024-11-01] MEDS: CloNIDine HCL 0.2 MG TABLET PO ONE (15:36)
[2024-11-01] MEDS: HYDROCODONE/ACETAMINOPHEN 5-325 MG TABLET PO ONE (15:36)
[2024-11-01] MEDS: LABETALOL HCL 5 MG/ML 20 ML VIAL IVP ONE (17:16)
[2024-11-01] MEDS: DiphenhydrAMINE HCL 25 MG CAPSULE PO ONE (18:22)
[2024-11-01] MEDS: HydrALAZINE HCL 20 MG/ML VIAL IVP PRN (19:44)
[2024-11-01] MEDS: ACETAMINOPHEN 500 MG TABLET PO ONE (19:47)
[2024-11-01] MEDS ORDERED: ZOLPIDEM TARTRATE 5 MG TABLET PO PRN (20:30)
[2024-11-01] MEDS ORDERED: MAGNESIUM HYDROXIDE SUSPENSION 30 ML UDCUP PO PRN (20:30)
[2024-11-01] MEDS ORDERED: BISACODYL 10 MG RECTAL RECTAL SUPPOSITORY PR PRN (20:30)
[2024-11-01] MEDS ORDERED: ACETAMINOPHEN 325 MG TABLET PO PRN (20:30)
[2024-11-01] MEDS: DOCUSATE SODIUM 100 MG CAPSULE PO SCH (21:00)
[2024-11-01] MEDS: FUROSEMIDE 40 MG TABLET PO SCH (21:13)
[2024-11-01] MEDS: LABETALOL HCL 100 MG TABLET PO SCH (21:13)
[2024-11-01 23:34] VITALS: BP 187/102; PULSE 67; RESP 18; TEMP 97.6; O2SAT 98
[2024-11-01] MEDS: HydrALAZINE HCL 50 MG TABLET PO SCH (23:45)
[2024-11-01] MEDS: HEPARIN SODIUM,PORCINE 5,000 UNITS/ML VIAL SQ SCH (23:45)
[2024-11-02] VITALS (18 sets, daily range): BP systolic 114–231; BP diastolic 71–154; PULSE 68–88; RESP 16–20; TEMP 96.3–98.5; O2SAT 95–98
[2024-11-02] MEDS: HYDROmorphone HCL 2 MG TABLET PO PRN (02:36)
[2024-11-02] MEDS: SEVELAMER CARBONATE 800 MG TABLET PO SCH (08:00)
[2024-11-02] MEDS ORDERED: PANTOPRAZOLE SODIUM 40 MG DR TABLET PO SCH (09:00)
[2024-11-02] MEDS: FOLIC ACID 1 MG TABLET PO SCH (09:00)
[2024-11-02] MEDS: AmLODIPine BESYLATE 10 MG TABLET PO SCH (09:00)
[2024-11-02] MEDS: PANTOPRAZOLE SODIUM 40 MG DR TABLET PO SCH (09:00)
[2024-11-02] MEDS: ATORVASTATIN CALCIUM 20 MG TABLET PO SCH (09:00)
[2024-11-02] MEDS: SODIUM ZIRCONIUM CYCLOSILICATE 5 GM POWDER PACKET PO SCH (09:00)
[2024-11-02] MEDS: CHOLECALCIFEROL (VIT D3) 2,000 UNITS [50 MCG] TABLET PO SCH (09:00)
[2024-11-02] MEDS: SERTRALINE HCL 100 MG TABLET PO SCH (09:00)
[2024-11-02] MEDS: ISOSORBIDE MONONITRATE 60 MG ER TABLET PO SCH (09:00)
[2024-11-02] MEDS: ASPIRIN 81 MG DR TABLET PO SCH (09:00)
[2024-11-02] MEDS: ONDANSETRON HCL 4 MG/2 ML VIAL IVP PRN (10:04)
[2024-11-02] MEDS: DiphenhydrAMINE HCL 50 MG/ML VIAL IVP PRN (10:05)
[2024-11-02] MEDS ORDERED: HEPARIN SODIUM,PORCINE 1,000 UNITS/ML VIAL ONE (12:00)
[2024-11-02] MEDS ORDERED: DiphenhydrAMINE HCL 50 MG/ML VIAL ONE (12:00)
[2024-11-02] MEDS ORDERED: SODIUM CHLORIDE 0.9% 1,000 ML ONE (16:22)
[2024-11-02 21:06] LABS: GLUCOMETER DEV NAME(LOC) 5S.2D; GLUCOSE,POINT OF CARE 91 MG/DL (70-110)
[2024-11-02] MEDS: HEPARIN SODIUM,PORCINE 1,000 UNITS/ML VIAL IVCATH ONE ×2 (21:20)
[2024-11-03 00:01] VITALS: BP 188/98; PULSE 72; RESP 18; TEMP 98.1; O2SAT 97
[2024-11-03 03:24] VITALS: BP 195/119; PULSE 75; RESP 19; TEMP 98; O2SAT 98
[2024-11-03 04:54] VITALS: BP 187/103; PULSE 77; RESP 18; TEMP 98; O2SAT 99
[2024-11-03 07:19] VITALS: BP 184/108; PULSE 79; RESP 19; TEMP 99; O2SAT 97
[2024-11-03 08:36] LABS: BASOPHILS % (AUTO) 1.2 % (0.0-2.0); EOSINOPHILS % (AUTO) 4.7 % (1.0-6.0); HEMATOCRIT 32.4 % (36-46); HEMOGLOBIN 10.9 g/dL (12.0-16.0); LYMPHOCYTES # (AUTO) 0.6 K/uL (1.0-4.8); LYMPHOCYTES % (AUTO) 16.9 % (22.0-44.0); MEAN CORPUSCULAR HEMOGLOBIN 30.3 pg (26.0-34.0); MEAN CORPUSCULAR HGB CONC 33.5 G/dL (31.0-37.0); MEAN CORPUSCULAR VOLUME 90 fL (80-100); MONOCYTES # (AUTO) 0.2 K/uL (0.1-1.0); MONOCYTES % (AUTO) 6.8 % (2.0-9.0); NEUTROPHILS # (AUTO) 2.5 K/uL (1.8-7.7); NEUTROPHILS % (AUTO) 70.4 % (40.0-70.0); PLATELET COUNT (AUTO) 113 K/uL (150-450); RED BLOOD CELL COUNT(AUTO) 3.59 MIL/uL (4.00-5.20); RED CELL DISTRIBUTION WIDTH 16.8 % (11.5-14.5); WHITE BLOOD COUNT (AUTO) 3.5 K/uL (4.5-11.0)
[2024-11-03 08:49] LABS: CALCIUM, TOTAL 8.6 mg/dL (8.8-10.5); CREATININE 6.02 mg/dL (0.60-1.30); POTASSIUM 4.1 mmol/L (3.5-5.1)
[2024-11-03 09:40] VITALS: BP 139/79; PULSE 65
[2024-11-03 11:10] VITALS: BP 154/89; PULSE 65; RESP 18; TEMP 98.6; O2SAT 98
[2024-11-03] MEDS ORDERED: AMLO-258 PO (12:48)
[2024-11-03] MEDS ORDERED: ISOS60TA77 PO (12:48)
[2024-11-03] MEDS ORDERED: ATOR20TA65 PO (12:48)
[2024-11-03] MEDS ORDERED: ASPI-1444 PO (12:48)
[2024-11-03] MEDS ORDERED: FURO40TA5 PO (12:48)
[2024-11-03] MEDS ORDERED: SODI5POW3 PO (12:48)
[2024-11-03] MEDS ORDERED: LABE100T51 PO (12:48)
[2024-11-03] MEDS ORDERED: HYDR50TA37 PO (12:48)
== END 2024-11-03 14:20 | disposition home or self-care (01) | DRG 291 ==
LOC: EMS 13:12 → EDH 20:25 → 5S 23:22
PROVIDERS: ADMIT Internal Medicine; ATTEND Internal Medicine
PROC: 5A1D70Z Performance of Urinary Filtration, Intermittent, Less than 6 Hours Per Day (ICD-10-PCS; principal; 2024-11-02)
DX: I13.2 Hypertensive heart and chronic kidney disease with heart failure and with stage 5 chronic kidney disease, or end stage renal disease (principal); I50.31 Acute diastolic (congestive) heart failure; N18.6 End stage renal disease; F11.20 Opioid dependence, uncomplicated; I16.0 Hypertensive urgency; E11.22 Type 2 diabetes mellitus with diabetic chronic kidney disease; E78.5 Hyperlipidemia, unspecified; D64.9 Anemia, unspecified; Z99.2 Dependence on renal dialysis; Z88.5 Allergy status to narcotic agent; Z79.899 Other long term (current) drug therapy; Z91.158 Patient's noncompliance with renal dialysis for other reason
CPT/HCPCS: 70450; 71045; 80048; 80076; 82550; 82962; 83690; 83880; 84484; 85025; 85610; 85730; 87081; 87340; 90935; 93005; 99285; G0378; J0360; J1200; J1644; J2405; J3490; J7030; 36415-L1; 36415-TC

== ENCOUNTER 2024-11-26 11:04 | Inpatient (IN) | payer MEDICARE, OTHER ==
[2024-11-26] VITALS (7 sets, daily range): BP systolic 165–193; BP diastolic 92–115; PULSE 60–74; RESP 18; TEMP 97.9–98.2; O2SAT 97–99
[~2024-11-26] VITALS: Ht 170.2 cm; Wt 77.0 kg
[~2024-11-26 11:04] MED LIST changes: +FURO40TA5 PO; -FURO40TA6 PO; +LABE100T51 PO; -LABE100T8 PO
[2024-11-26 12:01] LABS: BASOPHILS % (AUTO) 0.8 % (0.0-2.0); EOSINOPHILS % (AUTO) 3.5 % (1.0-6.0); HEMATOCRIT 27.5 % (36-46); HEMOGLOBIN 9.1 g/dL (12.0-16.0); LYMPHOCYTES # (AUTO) 0.6 K/uL (1.0-4.8); LYMPHOCYTES % (AUTO) 19.7 % (22.0-44.0); MEAN CORPUSCULAR HEMOGLOBIN 30.1 pg (26.0-34.0); MEAN CORPUSCULAR HGB CONC 33.1 G/dL (31.0-37.0); MEAN CORPUSCULAR VOLUME 91 fL (80-100); MONOCYTES # (AUTO) 0.3 K/uL (0.1-1.0); MONOCYTES % (AUTO) 8.6 % (2.0-9.0); NEUTROPHILS % (AUTO) 67.4 % (40.0-70.0); RED BLOOD CELL COUNT(AUTO) 3.02 MIL/uL (4.00-5.20); RED CELL DISTRIBUTION WIDTH 16.7 % (11.5-14.5)
[2024-11-26 12:12] LABS: CALCIUM, TOTAL 8.2 mg/dL (8.8-10.5); CREATININE 10.6 mg/dL (0.60-1.30); POTASSIUM 4.8 mmol/L (3.5-5.1)
[2024-11-26 12:26] LABS: PLATELET COUNT (AUTO) 66 K/uL (150-450)
[2024-11-26] MEDS: DiphenhydrAMINE HCL 50 MG/ML VIAL IVP PRN (16:17)
[2024-11-26] MEDS: HYDROmorphone HCL 2 MG/ML SYRINGE IVP PRN (16:17)
[2024-11-26] MEDS ORDERED: MAGNESIUM HYDROXIDE SUSPENSION 30 ML UDCUP PO PRN (17:30)
[2024-11-26] MEDS ORDERED: IPRATROPIUM BROMIDE 0.5 MG/2.5 ML NEB SOLUTION NEB PRN (17:30)
[2024-11-26] MEDS ORDERED: ACETAMINOPHEN 325 MG TABLET PO PRN (17:30)
[2024-11-26] MEDS ORDERED: ALBUTEROL SULFATE 2.5 MG/0.5 ML NEB SOLUTION NEB PRN (17:30)
[2024-11-26] MEDS ORDERED: ZOLPIDEM TARTRATE 5 MG TABLET PO PRN (17:30)
[2024-11-26] MEDS ORDERED: BISACODYL 10 MG RECTAL RECTAL SUPPOSITORY PR PRN (17:30)
[2024-11-26] MEDS: ONDANSETRON HCL 4 MG/2 ML VIAL IVP PRN (19:01)
[2024-11-26] MEDS: LABETALOL HCL 100 MG TABLET PO SCH (20:40)
[2024-11-26] MEDS: FUROSEMIDE 40 MG TABLET PO SCH (20:40)
[2024-11-27] VITALS (11 sets, daily range): BP systolic 145–195; BP diastolic 82–106; PULSE 56–64; RESP 16–19; TEMP 97.1–98.8; O2SAT 95–99
[2024-11-27] MEDS: HEPARIN SODIUM,PORCINE 5,000 UNITS/ML VIAL SQ SCH
[2024-11-27] MEDS: HydrALAZINE HCL 50 MG TABLET PO SCH (00:59)
[2024-11-27] MEDS: HEPARIN SODIUM,PORCINE 1,000 UNITS/ML VIAL IVCATH ONE ×2 (02:16→02:17)
[2024-11-27] MEDS: LEVOTHYROXINE SODIUM 150 MCG TABLET PO SCH (05:44)
[2024-11-27] MEDS: AmLODIPine BESYLATE 10 MG TABLET PO ONE (05:44)
[2024-11-27] MEDS: ASPIRIN 81 MG DR TABLET PO SCH (08:30)
[2024-11-27] MEDS: PANTOPRAZOLE SODIUM 40 MG DR TABLET PO SCH (08:31)
[2024-11-27] MEDS: CHOLECALCIFEROL (VIT D3) 1,000 UNITS [25 MCG] TABLET PO SCH (08:31)
[2024-11-27] MEDS: SEVELAMER CARBONATE 800 MG TABLET PO SCH (08:31)
[2024-11-27] MEDS: FOLIC ACID 1 MG TABLET PO SCH (08:31)
[2024-11-27] MEDS: CYANOCOBALAMIN 500 MCG TABLET PO SCH (08:32)
[2024-11-27] MEDS: SERTRALINE HCL 100 MG TABLET PO SCH (08:32)
[2024-11-27] MEDS: PARICALCITOL 1 MCG CAPSULE PO SCH (08:32)
[2024-11-27] MEDS: ISOSORBIDE MONONITRATE 60 MG ER TABLET PO SCH (08:32)
[2024-11-27] MEDS: ATORVASTATIN CALCIUM 20 MG TABLET PO SCH (08:32)
[2024-11-27] MEDS: SODIUM ZIRCONIUM CYCLOSILICATE 5 GM POWDER PACKET PO SCH (08:33)
[2024-11-27] MEDS ORDERED: PANTOPRAZOLE SODIUM 40 MG DR TABLET PO SCH (09:00)
[2024-11-27] MEDS ORDERED: DiphenhydrAMINE HCL 50 MG/ML VIAL IM ONE (17:46)
[2024-11-27] MEDS ORDERED: HEPARIN SODIUM,PORCINE 1,000 UNITS/ML VIAL IVP ONE (17:46)
[2024-11-27] MEDS: LABETALOL HCL 5 MG/ML 20 ML VIAL IVP PRN (18:49)
[2024-11-28] VITALS (13 sets, daily range): BP systolic 139–209; BP diastolic 76–124; PULSE 53–66; RESP 17–20; TEMP 97.6–98.8; O2SAT 95–98
[2024-11-28] MEDS ORDERED: SODIUM CHLORIDE 0.9% 1,000 ML ONE ×2 (06:34)
[2024-11-28] MEDS: AmLODIPine BESYLATE 10 MG TABLET PO SCH (10:58)
[2024-11-28] MEDS: HEPARIN SODIUM,PORCINE 1,000 UNITS/ML VIAL IVCATH ONE ×2 (12:22→12:23)
[2024-11-28] MEDS: EPOETIN ALFA 10,000 UNITS/ML VIAL SQ SCH (12:24)
[2024-11-28] MEDS ORDERED: LIDOCAINE/PF 1% 2 ML VIAL CAUDAL ONE (17:50)
[2024-11-28] MEDS ORDERED: HEPARIN SODIUM,PORCINE 1,000 UNITS/ML VIAL IVP ONE (17:50)
[2024-11-28] MEDS ORDERED: DiphenhydrAMINE HCL 50 MG/ML VIAL IM ONE (17:50)
[2024-11-29 06:45] VITALS: BP 174/95; PULSE 62; RESP 18; TEMP 98.1; O2SAT 99
[2024-11-29 07:56] VITALS: BP 177/94; PULSE 62; RESP 20; TEMP 98.4; O2SAT 97
[2024-11-29] MEDS ORDERED: HYDR50TA37 PO (12:40)
[2024-11-29] MEDS: LABETALOL HCL 100 MG TABLET PO ONE (13:51)
[2024-11-29] MEDS: HydrALAZINE HCL 25 MG TABLET PO ONE (13:51)
[2024-11-29 14:59] VITALS: BP 141/75; PULSE 58; RESP 18; TEMP 98.2; O2SAT 96
[2024-11-29] MEDS ORDERED: HydrALAZINE HCL 50 MG TABLET PO SCH (16:00)
[2024-11-29] MEDS ORDERED: LABETALOL HCL 100 MG TABLET PO SCH (21:00)
== END 2024-11-29 16:26 | disposition home or self-care (01) | DRG 640 ==
LOC: EMS 11:10 → EDH 14:03 → UNDOADMIN 15:06 → EDH 15:06 → 5S 18:42 → 4E 11-27 17:05
PROVIDERS: ADMIT Hospitalist; ATTEND Hospitalist
PROC: 5A1D70Z Performance of Urinary Filtration, Intermittent, Less than 6 Hours Per Day (ICD-10-PCS; principal; 2024-11-26)
PROC: 5A1D70Z Performance of Urinary Filtration, Intermittent, Less than 6 Hours Per Day (ICD-10-PCS; 2024-11-28)
DX: E87.5 Hyperkalemia (principal); N18.6 End stage renal disease; E46 Unspecified protein-calorie malnutrition; I13.11 Hypertensive heart and chronic kidney disease without heart failure, with stage 5 chronic kidney disease, or end stage renal disease; Q61.3 Polycystic kidney, unspecified; N25.81 Secondary hyperparathyroidism of renal origin; R64 Cachexia; E83.51 Hypocalcemia; E03.9 Hypothyroidism, unspecified; K31.84 Gastroparesis; R62.7 Adult failure to thrive; G89.4 Chronic pain syndrome; E11.43 Type 2 diabetes mellitus with diabetic autonomic (poly)neuropathy; E11.22 Type 2 diabetes mellitus with diabetic chronic kidney disease; D64.9 Anemia, unspecified; E83.39 Other disorders of phosphorus metabolism; E88.09 Other disorders of plasma-protein metabolism, not elsewhere classified; F41.9 Anxiety disorder, unspecified; K21.9 Gastro-esophageal reflux disease without esophagitis; Z68.26 Body mass index [BMI] 26.0-26.9, adult; Z99.2 Dependence on renal dialysis; Z82.49 Family history of ischemic heart disease and other diseases of the circulatory system; Z83.3 Family history of diabetes mellitus; Z88.5 Allergy status to narcotic agent; Z91.158 Patient's noncompliance with renal dialysis for other reason
CPT/HCPCS: 71045; 74176; 76700; 80048; 85025; 87340; 90935; 93005; 97116; 97162; 99285; G0378; J0885; J1171; J1200; J1644; J2405; J3490; J7030; 36415-L1; 36415-TC

== ENCOUNTER 2024-12-13 11:36 | Emergency (ER) | payer MEDICARE, OTHER ==
[~2024-12-13] VITALS: Ht 170.2 cm; Wt 68.0 kg
[~2024-12-13 11:36] MED LIST changes: -FURO40TA5 PO
[2024-12-13 11:54] VITALS: BP 182/86; PULSE 68; RESP 20; TEMP 98.1; O2SAT 100
[2024-12-13 12:04] LABS: COVID AG,FIA SOURCE NASAL SWAB
[2024-12-13 12:57] LABS: INFLUENZA TYPE A NEGATIVE FOR TYPE A (NEGATIVE); INFLUENZA TYPE B NEGATIVE FOR TYPE B (NEGATIVE); SARS-COV2 (COVID) ANTIGEN,FIA Negative (Negative)
[2024-12-13 13:11] LABS: BASOPHILS % (AUTO) 1.4 % (0.0-2.0); LYMPHOCYTES # (AUTO) 0.6 K/uL (1.0-4.8); LYMPHOCYTES % (AUTO) 20.7 % (22.0-44.0); MEAN CORPUSCULAR HEMOGLOBIN 30.9 pg (26.0-34.0); MEAN CORPUSCULAR HGB CONC 34.6 G/dL (31.0-37.0); MEAN CORPUSCULAR VOLUME 89 fL (80-100); MONOCYTES # (AUTO) 0.3 K/uL (0.1-1.0); NEUTROPHILS # (AUTO) 1.9 K/uL (1.8-7.7); NEUTROPHILS % (AUTO) 62.9 % (40.0-70.0); PLATELET COUNT (AUTO) 80 K/uL (150-450); RED BLOOD CELL COUNT(AUTO) 2.92 MIL/uL (4.00-5.20); RED CELL DISTRIBUTION WIDTH 15.6 % (11.5-14.5); WHITE BLOOD COUNT (AUTO) 3.1 K/uL (4.5-11.0)
[2024-12-13] MEDS ORDERED: DOXY-354 PO (13:21)
[2024-12-13] MEDS ORDERED: AMOX-457 PO (13:21)
[2024-12-13 13:25] LABS: CALCIUM, TOTAL 9.7 mg/dL (8.8-10.5); CREATININE 7.05 mg/dL (0.60-1.30); POTASSIUM 4.3 mmol/L (3.5-5.1)
[2024-12-13] MEDS: DOXYCYCLINE HYCLATE 100 MG TABLET PO ONE (13:44)
[2024-12-13] MEDS: AMOX TR/POT CLAV 875 MG/125 MG TABLET PO ONE (13:45)
== END 2024-12-13 13:53 | disposition home or self-care (01) ==
LOC: EMS 11:36
DX: J18.9 Pneumonia, unspecified organism (principal); R09.81 Nasal congestion; B97.89 Other viral agents as the cause of diseases classified elsewhere; I12.0 Hypertensive chronic kidney disease with stage 5 chronic kidney disease or end stage renal disease; N18.6 End stage renal disease; Z79.82 Long term (current) use of aspirin; Z88.5 Allergy status to narcotic agent; Z90.49 Acquired absence of other specified parts of digestive tract; Z79.899 Other long term (current) drug therapy; Z20.822 Contact with and (suspected) exposure to COVID-19
CPT/HCPCS: 71045; 80048; 85025; 87804; 99284; 36415-L1; 36415-TC

== ENCOUNTER 2024-12-23 18:43 | Inpatient (IN) | payer MEDICARE, OTHER ==
[~2024-12-23] VITALS: Ht 170.2 cm; Wt 68.6 kg
[~2024-12-23 18:43] MED LIST changes: +AMOX1TAB15 PO; +HYDR25TA84 PO; -HYDR50TA37 PO; +LEVO150 PO; -LEVO150T11 PO; +PARI1CAP11 PO
[2024-12-23 20:51] LABS: BASOPHILS % (AUTO) 0.8 % (0.0-2.0); EOSINOPHILS % (AUTO) 5.9 % (1.0-6.0); HEMATOCRIT 25.6 % (36-46); HEMOGLOBIN 8.6 g/dL (12.0-16.0); LYMPHOCYTES # (AUTO) 0.7 K/uL (1.0-4.8); LYMPHOCYTES % (AUTO) 24.3 % (22.0-44.0); MEAN CORPUSCULAR HEMOGLOBIN 30.7 pg (26.0-34.0); MEAN CORPUSCULAR HGB CONC 33.6 G/dL (31.0-37.0); MEAN CORPUSCULAR VOLUME 91 fL (80-100); MONOCYTES # (AUTO) 0.3 K/uL (0.1-1.0); MONOCYTES % (AUTO) 10.3 % (2.0-9.0); NEUTROPHILS # (AUTO) 1.6 K/uL (1.8-7.7); NEUTROPHILS % (AUTO) 58.7 % (40.0-70.0); RED BLOOD CELL COUNT(AUTO) 2.81 MIL/uL (4.00-5.20); RED CELL DISTRIBUTION WIDTH 17.5 % (11.5-14.5); WHITE BLOOD COUNT (AUTO) 2.7 K/uL (4.5-11.0)
[2024-12-23 21:01] LABS: CALCIUM, TOTAL 8.3 mg/dL (8.8-10.5); CREATININE 3.16 mg/dL (0.60-1.30); POTASSIUM 3.8 mmol/L (3.5-5.1)
[2024-12-23 21:06] LABS: ALBUMIN 2.8 g/dL (3.4-5.0); BILIRUBIN,DIRECT 0.1 mg/dL (0.00-0.20); BILIRUBIN,TOTAL 0.6 mg/dL (0.1-1.0); TOTAL PROTEIN, SERUM 6.8 g/dL (6.4-8.2)
[2024-12-23 21:07] LABS: PLATELET COUNT (AUTO) 84 K/uL (150-450); RBC MORPHOLOGY COMMENT NORMAL RBC MORPH
[2024-12-23 21:16] LABS: COVID AG,FIA SOURCE NASAL SWAB
[2024-12-23 21:38] LABS: INFLUENZA TYPE A NEGATIVE FOR TYPE A (NEGATIVE); INFLUENZA TYPE B NEGATIVE FOR TYPE B (NEGATIVE); SARS-COV2 (COVID) ANTIGEN,FIA Negative (Negative)
[2024-12-23] MEDS: ACETAMINOPHEN 325 MG TABLET PO ONE (21:53)
[2024-12-23] MEDS: ONDANSETRON 4 MG TABLET PO ONE (21:53)
[2024-12-23 23:18] LABS: TROPONIN I-HIGH SENSITIVITY 46 ng/L (<51)
[2024-12-24] VITALS (12 sets, daily range): BP systolic 151–188; BP diastolic 88–113; PULSE 57–90; RESP 16–18; TEMP 97.7–98; O2SAT 97–99
[2024-12-24] MEDS: OxyCODONE HCL 5 MG IR TABLET PO ONE
[2024-12-24] MEDS: DiphenhydrAMINE HCL 50 MG/ML VIAL IVP ONE (01:30)
[2024-12-24] MEDS ORDERED: ACETAMINOPHEN 500 MG TABLET PO ONE (01:30)
[2024-12-24 09:54] LABS: APPEARANCE,URINE HAZY (CLEAR); BILIRUBIN,URINE NEGATIVE (NEGATIVE); COLOR,URINE LIGHT BROWN (YELLOW); GLUCOSE, URINE (UA) 70-100 mg/dL (NEGATIVE); KETONES,URINE NEGATIVE (NEGATIVE); LEUKOCYTE ESTERASE ,URINE SMALL (NEGATIVE); NITRATE,URINE NEGATIVE (NEGATIVE); OCCULT BLOOD,URINE LARGE (NEGATIVE); PH,URINE 8.5 (5.0-8.0); PROTEIN,URINE 300-600,SEE CONFIRM mg/dL (NEGATIVE); SPECIFIC GRAVITIY, URINE 1.006 (1.003-1.030); UROBILINOGEN,URINE <=1.0 mg/dL (<=1.0)
[2024-12-24] MEDS: CefTRIAXone 1 GM/DEXTROSE 50 ML IV SCH (10:02)
[2024-12-24] MEDS: HYDROmorphone HCL 2 MG/ML SYRINGE IVP PRN ×2 (10:02→14:01)
[2024-12-24 10:03] LABS: SULFOSALICYLIC ACID,URINE 3+ (Negative)
[2024-12-24 10:04] LABS: BACTERIA,URINE Few /HPF (None Seen); RBC,URINE 51-100 /HPF (0-2); SQUAMOUS EPITHELIAL CELL,UR Many /LPF (None Seen)
[2024-12-24] MEDS: DiphenhydrAMINE HCL 50 MG/ML VIAL IVP PRN (10:34)
[2024-12-24] MEDS ORDERED: DiphenhydrAMINE HCL 50 MG/ML VIAL ONE (11:58)
[2024-12-24] MEDS ORDERED: HEPARIN SODIUM,PORCINE 1,000 UNITS/ML VIAL ONE (11:58)
[2024-12-24] MEDS: HydrALAZINE HCL 20 MG/ML VIAL IVP PRN (13:11)
[2024-12-24] MEDS: HydrALAZINE HCL 25 MG TABLET PO SCH (15:05)
[2024-12-24] MEDS: CloNIDine HCL 0.1 MG TABLET PO ONE (15:05)
[2024-12-24] MEDS ORDERED: SODIUM CHLORIDE 0.9% 1,000 ML ONE (15:14)
[2024-12-24] MEDS: LABETALOL HCL 100 MG TABLET PO SCH (16:00)
[2024-12-24] MEDS: DOCUSATE SODIUM 100 MG CAPSULE PO SCH (22:40)
[2024-12-25 01:39] VITALS: BP 142/105; PULSE 57; RESP 18; TEMP 98.4; O2SAT 100
[2024-12-25 04:00] VITALS: BP 147/96; PULSE 54; RESP 18; TEMP 98.5; O2SAT 96
[2024-12-25] MEDS: LEVOTHYROXINE SODIUM 150 MCG TABLET PO SCH (06:31)
[2024-12-25 07:51] VITALS: BP 176/88; PULSE 62; RESP 18; TEMP 98.4; O2SAT 97
[2024-12-25 08:02] LABS: ANION GAP 5 mmol/L (8-16); BASOPHILS % (AUTO) 1.4 % (0.0-2.0); CALCIUM, TOTAL 6.7 mg/dL (8.8-10.5); CARBON DIOXIDE 31 mmol/L (22-29); CHLORIDE 101 mmol/L (98-107); CREATININE 4.03 mg/dL (0.60-1.30); EOSINOPHILS % (AUTO) 5.2 % (1.0-6.0); GLOMERULAR FILTR. RATE CALC 12 mL/min (>60); GLUCOSE,RANDOM 105 mg/dL (70-110); HEMATOCRIT 27.3 % (36-46); HEMOGLOBIN 9.2 g/dL (12.0-16.0); LYMPHOCYTES # (AUTO) 0.8 K/uL (1.0-4.8); LYMPHOCYTES % (AUTO) 29.8 % (22.0-44.0); MEAN CORPUSCULAR HGB CONC 33.7 G/dL (31.0-37.0); MEAN CORPUSCULAR VOLUME 92 fL (80-100); MONOCYTES # (AUTO) 0.3 K/uL (0.1-1.0); NEUTROPHILS # (AUTO) 1.4 K/uL (1.8-7.7); NEUTROPHILS % (AUTO) 52.6 % (40.0-70.0); PLATELET COUNT (AUTO) 82 K/uL (150-450); POTASSIUM 3.6 mmol/L (3.5-5.1); RED BLOOD CELL COUNT(AUTO) 2.97 MIL/uL (4.00-5.20); SODIUM SERUM 137 mmol/L (136-145); UREA NITROGEN, BLOOD 11 mg/dL (7-18); WHITE BLOOD COUNT (AUTO) 2.7 K/uL (4.5-11.0)
[2024-12-25] MEDS: SODIUM ZIRCONIUM CYCLOSILICATE 5 GM POWDER PACKET PO SCH (08:31)
[2024-12-25] MEDS: PARICALCITOL 1 MCG CAPSULE PO SCH (08:32)
[2024-12-25] MEDS: ATORVASTATIN CALCIUM 20 MG TABLET PO SCH (08:32)
[2024-12-25] MEDS: CYANOCOBALAMIN 500 MCG TABLET PO SCH (08:32)
[2024-12-25] MEDS: PANTOPRAZOLE SODIUM 40 MG DR TABLET PO SCH (08:33)
[2024-12-25] MEDS: SERTRALINE HCL 100 MG TABLET PO SCH (08:33)
[2024-12-25] MEDS: ASPIRIN 81 MG DR TABLET PO SCH (08:33)
[2024-12-25] MEDS: ISOSORBIDE MONONITRATE 60 MG ER TABLET PO SCH (08:33)
[2024-12-25] MEDS: AmLODIPine BESYLATE 10 MG TABLET PO SCH (08:33)
[2024-12-25] MEDS: CHOLECALCIFEROL (VIT D3) 1,000 UNITS [25 MCG] TABLET PO SCH (08:33)
[2024-12-25 08:34] LABS: TROPONIN I-HIGH SENSITIVITY 49 ng/L (<51)
[2024-12-25] MEDS: FOLIC ACID 1 MG TABLET PO SCH (08:35)
[2024-12-25] MEDS ORDERED: PARICALCITOL 1 MCG CAPSULE PO SCH (09:00)
[2024-12-25] MEDS: HydrALAZINE HCL 25 MG TABLET PO SCH (11:15)
[2024-12-25 11:48] VITALS: BP 140/79; PULSE 65; RESP 18; TEMP 97.9; O2SAT 96
[2024-12-25] MEDS ORDERED: SODIUM CHLORIDE 0.9% 250 ML IV ONE (14:23)
[2024-12-25 15:57] VITALS: BP 141/69; PULSE 72; RESP 17; TEMP 98; O2SAT 97
[2024-12-25] MEDS: SEVELAMER CARBONATE 800 MG TABLET PO SCH (18:00)
[2024-12-25 20:23] VITALS: BP 150/80; PULSE 60; RESP 18; TEMP 98.3; O2SAT 97
[2024-12-26] VITALS (14 sets, daily range): BP systolic 128–184; BP diastolic 64–100; PULSE 56–65; RESP 17–18; TEMP 97.7–98.4; O2SAT 95–98
[2024-12-26] MEDS: EPOETIN ALFA 10,000 UNITS/ML VIAL SQ SCH (09:11)
[2024-12-26] MEDS: DiphenhydrAMINE HCL 50 MG/ML VIAL IVP PRN (11:40)
[2024-12-26] MEDS: HEPARIN SODIUM,PORCINE 1,000 UNITS/ML VIAL IVP PRN ×2 (14:31)
[2024-12-26] MEDS ORDERED: HEPARIN SODIUM,PORCINE 1,000 UNITS/ML VIAL IVP ONE (17:09)
[2024-12-26] MEDS ORDERED: DiphenhydrAMINE HCL 50 MG/ML VIAL IM ONE (17:09)
== END 2024-12-26 17:10 | disposition home or self-care (01) | DRG 463 ==
LOC: EMS 18:43 → EDH 12-24 03:07 → 5S 12-24 12:15
PROVIDERS: ADMIT Internal Medicine; ATTEND Internal Medicine
PROC: 5A1D70Z Performance of Urinary Filtration, Intermittent, Less than 6 Hours Per Day (ICD-10-PCS; principal; 2024-12-24)
PROC: 5A1D70Z Performance of Urinary Filtration, Intermittent, Less than 6 Hours Per Day (ICD-10-PCS; 2024-12-26)
DX: N39.0 Urinary tract infection, site not specified (principal); I13.2 Hypertensive heart and chronic kidney disease with heart failure and with stage 5 chronic kidney disease, or end stage renal disease; R64 Cachexia; E46 Unspecified protein-calorie malnutrition; E83.51 Hypocalcemia; E83.39 Other disorders of phosphorus metabolism; E11.43 Type 2 diabetes mellitus with diabetic autonomic (poly)neuropathy; N18.6 End stage renal disease; Z99.2 Dependence on renal dialysis; I50.9 Heart failure, unspecified; E03.9 Hypothyroidism, unspecified; E11.22 Type 2 diabetes mellitus with diabetic chronic kidney disease; I25.10 Atherosclerotic heart disease of native coronary artery without angina pectoris; E88.09 Other disorders of plasma-protein metabolism, not elsewhere classified; R62.7 Adult failure to thrive; G89.4 Chronic pain syndrome; Z68.23 Body mass index [BMI] 23.0-23.9, adult; L50.9 Urticaria, unspecified; E87.5 Hyperkalemia; N25.81 Secondary hyperparathyroidism of renal origin; E78.5 Hyperlipidemia, unspecified; K31.84 Gastroparesis; Q61.3 Polycystic kidney, unspecified; Z88.5 Allergy status to narcotic agent; Z87.440 Personal history of urinary (tract) infections; Z82.49 Family history of ischemic heart disease and other diseases of the circulatory system; Z82.71 Family history of polycystic kidney; Z83.3 Family history of diabetes mellitus
CPT/HCPCS: 71045; 74176; 80048; 80076; 81001; 81002; 83690; 83735; 84484; 85025; 87081; 87086; 87340; 87804; 90935; 93005; 93306; 96365; 99285; J0360; J0696; J0885; J1171; J1200; J1644; J7030; J7050; Q0162; 36415-L1; 36415-TC

== ENCOUNTER 2025-01-04 12:39 | Inpatient (IN) | payer MEDICARE, OTHER ==
[~2025-01-04] VITALS: Ht 170.2 cm; Wt 75.0 kg
[2025-01-04 13:28] LABS: COVID AG,FIA SOURCE NASAL SWAB
[2025-01-04 13:35] LABS: BASOPHILS % (AUTO) 0.4 % (0.0-2.0); EOSINOPHILS % (AUTO) 4.9 % (1.0-6.0); HEMOGLOBIN 10.2 g/dL (12.0-16.0); LYMPHOCYTES # (AUTO) 0.6 K/uL (1.0-4.8); LYMPHOCYTES % (AUTO) 18.7 % (22.0-44.0); MEAN CORPUSCULAR HEMOGLOBIN 30.8 pg (26.0-34.0); MEAN CORPUSCULAR VOLUME 93 fL (80-100); MONOCYTES # (AUTO) 0.2 K/uL (0.1-1.0); MONOCYTES % (AUTO) 7.4 % (2.0-9.0); NEUTROPHILS # (AUTO) 2.3 K/uL (1.8-7.7); NEUTROPHILS % (AUTO) 68.6 % (40.0-70.0); PLATELET COUNT (AUTO) 55 K/uL (150-450); RED BLOOD CELL COUNT(AUTO) 3.33 MIL/uL (4.00-5.20); RED CELL DISTRIBUTION WIDTH 17.1 % (11.5-14.5); WHITE BLOOD COUNT (AUTO) 3.4 K/uL (4.5-11.0)
[2025-01-04 13:38] LABS: ANION GAP 5 mmol/L (8-16); CALCIUM, TOTAL 9.1 mg/dL (8.8-10.5); CARBON DIOXIDE 30 mmol/L (22-29); CHLORIDE 102 mmol/L (98-107); CREATININE 8.36 mg/dL (0.60-1.30); GLOMERULAR FILTR. RATE CALC 5 mL/min (>60); GLUCOSE,RANDOM 99 mg/dL (70-110); POTASSIUM 4.5 mmol/L (3.5-5.1); SODIUM SERUM 137 mmol/L (136-145); UREA NITROGEN, BLOOD 42 mg/dL (7-18)
[2025-01-04 13:42] LABS: ALBUMIN 2.8 g/dL (3.4-5.0); BILIRUBIN,DIRECT 0.1 mg/dL (0.00-0.20); BILIRUBIN,TOTAL 0.5 mg/dL (0.1-1.0); TOTAL PROTEIN, SERUM 6.4 g/dL (6.4-8.2)
[2025-01-04 13:46] LABS: LIPASE 13 U/L (16-77); RBC MORPHOLOGY COMMENT ABNORMAL RBC MORPH
[2025-01-04 14:06] LABS: LACTATE DEHYDROGENASE 158 U/L (81-234)
[2025-01-04 14:08] LABS: TROPONIN I-HIGH SENSITIVITY 144 ng/L (<51)
[2025-01-04 14:24] LABS: SARS-COV2 (COVID) ANTIGEN,FIA Negative (Negative)
[2025-01-04 14:24] LABS: INFLUENZA TYPE A NEGATIVE FOR TYPE A (NEGATIVE); INFLUENZA TYPE B NEGATIVE FOR TYPE B (NEGATIVE)
[2025-01-04] MEDS: NITROGLYCERIN 2% (1 GM=INCH) OINTMENT PACKET TP ONE (14:33)
[2025-01-04] MEDS: SODIUM CHLORIDE 0.9% 1,000 ML IV ONE (14:48)
[2025-01-04] MEDS: HydrALAZINE HCL 20 MG/ML VIAL IVP ONE ×2 (15:33→22:19)
[2025-01-04] MEDS ORDERED: BISACODYL 10 MG RECTAL RECTAL SUPPOSITORY PR PRN (16:30)
[2025-01-04] MEDS ORDERED: ALBUTEROL SULFATE 2.5 MG/0.5 ML NEB SOLUTION NEB PRN (16:30)
[2025-01-04] MEDS ORDERED: ZOLPIDEM TARTRATE 5 MG TABLET PO PRN (16:30)
[2025-01-04] MEDS ORDERED: IPRATROPIUM BROMIDE 0.5 MG/2.5 ML NEB SOLUTION NEB PRN (16:30)
[2025-01-04] MEDS ORDERED: MAGNESIUM HYDROXIDE SUSPENSION 30 ML UDCUP PO PRN (16:30)
[2025-01-04] MEDS: DiphenhydrAMINE HCL 50 MG/ML VIAL IVP ONE (16:44)
[2025-01-04] MEDS: HYDROCODONE/ACETAMINOPHEN 5-325 MG TABLET PO ONE (16:45)
[2025-01-04] MEDS: ONDANSETRON HCL 4 MG/2 ML VIAL IVP PRN (16:48)
[2025-01-04] MEDS: ACETAMINOPHEN 325 MG TABLET PO PRN (18:59)
[2025-01-04] MEDS: HydrALAZINE HCL 25 MG TABLET PO SCH (18:59)
[2025-01-04] MEDS: DiphenhydrAMINE HCL 50 MG/ML VIAL IVP PRN (20:21)
[2025-01-04] MEDS: HYDROmorphone HCL 2 MG/ML SYRINGE IVP PRN (20:21)
[2025-01-04] MEDS: LABETALOL HCL 100 MG TABLET PO SCH (20:44)
[2025-01-04] MEDS: DOCUSATE SODIUM 100 MG CAPSULE PO SCH (20:44)
[2025-01-04 22:00] VITALS: BP 202/97; PULSE 68; RESP 16; TEMP 98.1; O2SAT 97
[2025-01-04 23:14] LABS: APPEARANCE,URINE CLEAR (CLEAR); BILIRUBIN,URINE NEGATIVE (NEGATIVE); COLOR,URINE LIGHT YELLOW (YELLOW); GLUCOSE, URINE (UA) 70-100 mg/dL (NEGATIVE); KETONES,URINE NEGATIVE (NEGATIVE); LEUKOCYTE ESTERASE ,URINE NEGATIVE (NEGATIVE); NITRATE,URINE NEGATIVE (NEGATIVE); OCCULT BLOOD,URINE LARGE (NEGATIVE); PH,URINE 8.5 (5.0-8.0); PROTEIN,URINE 300-600,SEE CONFIRM mg/dL (NEGATIVE); SPECIFIC GRAVITIY, URINE 1.008 (1.003-1.030); UROBILINOGEN,URINE <=1.0 mg/dL (<=1.0)
[2025-01-04 23:28] LABS: SULFOSALICYLIC ACID,URINE 1+ (Negative)
[2025-01-04 23:29] LABS: BACTERIA,URINE Moderate /HPF (None Seen); RBC,URINE 0-2 /HPF (0-2); SQUAMOUS EPITHELIAL CELL,UR Moderate /LPF (None Seen)
[2025-01-05] VITALS (17 sets, daily range): BP systolic 164–212; BP diastolic 91–122; PULSE 60–80; RESP 16–19; TEMP 98.1–98.8; O2SAT 96–99
[2025-01-05] MEDS: HEPARIN SODIUM,PORCINE 5,000 UNITS/ML VIAL SQ SCH
[2025-01-05] MEDS: NITROGLYCERIN 2% (1 GM=INCH) OINTMENT PACKET TP SCH (00:36)
[2025-01-05] MEDS: TERAZOSIN HCL 2 MG CAPSULE PO ONE (04:41)
[2025-01-05] MEDS: LEVOTHYROXINE SODIUM 150 MCG TABLET PO SCH (06:36)
[2025-01-05] MEDS: ATORVASTATIN CALCIUM 20 MG TABLET PO SCH (08:18)
[2025-01-05] MEDS: PARICALCITOL 1 MCG CAPSULE PO SCH (08:19)
[2025-01-05] MEDS: PANTOPRAZOLE SODIUM 40 MG DR TABLET PO SCH (08:19)
[2025-01-05] MEDS: FOLIC ACID 1 MG TABLET PO SCH (08:19)
[2025-01-05] MEDS: CYANOCOBALAMIN 500 MCG TABLET PO SCH (08:19)
[2025-01-05] MEDS: ASPIRIN 81 MG DR TABLET PO SCH (08:19)
[2025-01-05] MEDS: CHOLECALCIFEROL (VIT D3) 1,000 UNITS [25 MCG] TABLET PO SCH (08:19)
[2025-01-05] MEDS: SERTRALINE HCL 100 MG TABLET PO SCH (08:19)
[2025-01-05] MEDS: SEVELAMER CARBONATE 800 MG TABLET PO SCH (08:19)
[2025-01-05] MEDS: SODIUM ZIRCONIUM CYCLOSILICATE 5 GM POWDER PACKET PO SCH (09:00)
[2025-01-05] MEDS ORDERED: PANTOPRAZOLE SODIUM 40 MG DR TABLET PO SCH (09:00)
[2025-01-05] MEDS ORDERED: PARICALCITOL 1 MCG CAPSULE PO SCH (09:00)
[2025-01-05] MEDS: ISOSORBIDE MONONITRATE 60 MG ER TABLET PO SCH (09:40)
[2025-01-05] MEDS: AmLODIPine BESYLATE 10 MG TABLET PO SCH (09:41)
[2025-01-05] MEDS: HEPARIN SODIUM,PORCINE 1,000 UNITS/ML VIAL IVCATH PRN ×2 (18:58→18:59)
[2025-01-06] VITALS (13 sets, daily range): BP systolic 121–205; BP diastolic 48–96; PULSE 59–75; RESP 16–18; TEMP 97.7–98.8; O2SAT 96–98
[2025-01-06] MEDS: EPOETIN ALFA 10,000 UNITS/ML VIAL SQ SCH (10:24)
[2025-01-06] MEDS ORDERED: DiphenhydrAMINE HCL 50 MG/ML VIAL ONE (12:00)
[2025-01-06] MEDS ORDERED: HEPARIN SODIUM,PORCINE 1,000 UNITS/ML VIAL ONE (12:00)
[2025-01-06] MEDS ORDERED: DiphenhydrAMINE HCL 50 MG/ML VIAL IM ONE (12:35)
[2025-01-06] MEDS ORDERED: HEPARIN SODIUM,PORCINE 1,000 UNITS/ML VIAL IVP ONE (12:35)
[2025-01-06] MEDS: NIFEdipine 60 MG ER TABLET PO ONE (12:59)
[2025-01-06] MEDS: LABETALOL HCL 100 MG TABLET PO SCH (18:05)
[2025-01-06] MEDS: HEPARIN SODIUM,PORCINE 1,000 UNITS/ML VIAL IVCATH ONE ×2 (18:06)
[2025-01-06] MEDS: DiphenhydrAMINE HCL 50 MG/ML VIAL IVP PRN (18:07)
[2025-01-07] VITALS (16 sets, daily range): BP systolic 144–234; BP diastolic 70–115; PULSE 56–86; RESP 16–20; TEMP 97.2–99; O2SAT 96–100
[2025-01-07] MEDS: NIFEdipine 60 MG ER TABLET PO SCH (08:43)
[2025-01-07] MEDS: DiphenhydrAMINE HCL 50 MG/ML VIAL IVP PRN (09:29)
[2025-01-07] MEDS: HEPARIN SODIUM,PORCINE 1,000 UNITS/ML VIAL IVCATH PRN ×2 (11:15→11:16)
[2025-01-07] MEDS: PHENYLEPHRINE/SHK LV/MIN OIL/PET 57 GM OINTMENT TP PRN (11:35)
[2025-01-07] MEDS ORDERED: HEPARIN SODIUM,PORCINE 1,000 UNITS/ML VIAL ONE (12:00)
[2025-01-08] VITALS: BP 159/74; PULSE 63; RESP 18; TEMP 99; O2SAT 98
[2025-01-08 04:30] VITALS: BP 194/93; PULSE 56; RESP 17; TEMP 98.9; O2SAT 98
[2025-01-08] MEDS: HydrALAZINE HCL 20 MG/ML VIAL IVP ONE (04:52)
[2025-01-08 06:00] VITALS: BP 150/63; PULSE 59; RESP 19; TEMP 98.9; O2SAT 98
[2025-01-08 07:48] VITALS: BP 179/84; PULSE 60; RESP 18; TEMP 98.2; O2SAT 99
[2025-01-08] MEDS ORDERED: LABE100T51 PO (08:59)
[2025-01-08] MEDS ORDERED: NIFE-129 PO (08:59)
== END 2025-01-08 09:20 | disposition home or self-care (01) | DRG 304 ==
LOC: EMS 14:00 → EDH 17:17 → 5S 21:37 → 5N 01-05 08:10
PROVIDERS: ADMIT Hospitalist; ATTEND Hospitalist
PROC: 5A1D70Z Performance of Urinary Filtration, Intermittent, Less than 6 Hours Per Day (ICD-10-PCS; principal; 2025-01-05)
PROC: 5A1D70Z Performance of Urinary Filtration, Intermittent, Less than 6 Hours Per Day (ICD-10-PCS; 2025-01-06)
PROC: 5A1D70Z Performance of Urinary Filtration, Intermittent, Less than 6 Hours Per Day (ICD-10-PCS; 2025-01-07)
DX: I16.1 Hypertensive emergency (principal); N18.6 End stage renal disease; E46 Unspecified protein-calorie malnutrition; Q61.3 Polycystic kidney, unspecified; R64 Cachexia; N25.81 Secondary hyperparathyroidism of renal origin; R62.7 Adult failure to thrive; E11.22 Type 2 diabetes mellitus with diabetic chronic kidney disease; D63.1 Anemia in chronic kidney disease; Z20.822 Contact with and (suspected) exposure to COVID-19; E83.39 Other disorders of phosphorus metabolism; E83.51 Hypocalcemia; I12.0 Hypertensive chronic kidney disease with stage 5 chronic kidney disease or end stage renal disease; D69.6 Thrombocytopenia, unspecified; E88.09 Other disorders of plasma-protein metabolism, not elsewhere classified; G89.4 Chronic pain syndrome; K21.9 Gastro-esophageal reflux disease without esophagitis; Z87.440 Personal history of urinary (tract) infections; Z88.5 Allergy status to narcotic agent; Z91.148 Patient's other noncompliance with medication regimen for other reason; Z68.25 Body mass index [BMI] 25.0-25.9, adult; Z91.199 Patient's noncompliance with other medical treatment and regimen due to unspecified reason; Z99.2 Dependence on renal dialysis
CPT/HCPCS: 74176; 80048; 80076; 81001; 81002; 83615; 83690; 84484; 84520; 85025; 87040; 87081; 87086; 87340; 87804; 90935; 93005; 99285; G0378; J0360; J0885; J1171; J1200; J1644; J2405; J7030

== ENCOUNTER 2025-01-23 03:27 | Emergency (ER) | payer MEDICARE, OTHER ==
[~2025-01-23] VITALS: Ht 170.2 cm; Wt 68.0 kg
[~2025-01-23 03:27] MED LIST changes: -AMLO-258 PO; -AMOX1TAB15 PO; +NIFE-129 PO
[2025-01-23 03:39] VITALS: BP 140/87; PULSE 60; RESP 18; TEMP 98.1; O2SAT 100
[2025-01-25] MEDS ORDERED: LABE200T56 PO (16:09)
== END 2025-01-23 05:08 | disposition left against medical advice (07) ==
LOC: EMS 03:30
DX: J02.9 Acute pharyngitis, unspecified (principal); Z53.21 Procedure and treatment not carried out due to patient leaving prior to being seen by health care provider

== ENCOUNTER 2025-03-17 17:19 | Emergency (ER) | payer MEDICARE, OTHER ==
[~2025-03-17] VITALS: Ht 167.6 cm; Wt 74.0 kg
[~2025-03-17 17:19] MED LIST changes: +AMLO-258 PO; +GUAI100L96 PO; +ISOS30TA92 PO; -ISOS60TA77 PO; -LABE100T51 PO; +LOSA-382 PO; +MINO10 PO; -NIFE-129 PO; -SEVE800T38 PO; +SEVE800T39 PO; +SODI10PO3 PO; -SODI5POW3 PO; +TERA1CAP4 PO; +TRAZ-252 PO
[2025-03-17 17:28] VITALS: BP 156/63; PULSE 85; RESP 20; TEMP 98.3; O2SAT 98
[2025-03-17 19:36] LABS: EOSINOPHILS % (AUTO) 6.5 % (1.0-6.0); HEMATOCRIT 35.2 % (36-46); HEMOGLOBIN 11.8 g/dL (12.0-16.0); LYMPHOCYTES # (AUTO) 0.6 K/uL (1.0-4.8); LYMPHOCYTES % (AUTO) 12.8 % (22.0-44.0); MEAN CORPUSCULAR HEMOGLOBIN 30.1 pg (26.0-34.0); MEAN CORPUSCULAR HGB CONC 33.5 G/dL (31.0-37.0); MEAN CORPUSCULAR VOLUME 90 fL (80-100); MONOCYTES # (AUTO) 0.3 K/uL (0.1-1.0); MONOCYTES % (AUTO) 7.1 % (2.0-9.0); NEUTROPHILS # (AUTO) 3.5 K/uL (1.8-7.7); NEUTROPHILS % (AUTO) 72.6 % (40.0-70.0); PLATELET COUNT (AUTO) 94 K/uL (150-450); RED BLOOD CELL COUNT(AUTO) 3.92 MIL/uL (4.00-5.20); RED CELL DISTRIBUTION WIDTH 16.6 % (11.5-14.5); WHITE BLOOD COUNT (AUTO) 4.9 K/uL (4.5-11.0)
[2025-03-17 19:45] LABS: CALCIUM, TOTAL 8.9 mg/dL (8.8-10.5); CREATININE 5.86 mg/dL (0.60-1.30); POTASSIUM 3.8 mmol/L (3.5-5.1)
[2025-03-17 19:54] LABS: PLATELET MORPHOLOGY COMMENT NOTE; RBC MORPHOLOGY COMMENT NORMAL RBC MORPH
== END 2025-03-17 20:21 | disposition left against medical advice (07) ==
LOC: EMS 17:19
DX: M25.512 Pain in left shoulder (principal); M25.511 Pain in right shoulder; Z53.21 Procedure and treatment not carried out due to patient leaving prior to being seen by health care provider
CPT/HCPCS: 80048; 85025; 99281

== ENCOUNTER 2025-03-24 19:07 | Emergency (ER) | payer MEDICARE, OTHER ==
[~2025-03-24] VITALS: Ht 170.2 cm; Wt 70.0 kg
[2025-03-24 19:14] VITALS: TEMP 98.2
[2025-03-24 20:45] VITALS: BP 198/90; PULSE 62; RESP 18; O2SAT 98
[2025-03-24 21:12] LABS: APPEARANCE,URINE TURBID (CLEAR); BILIRUBIN,URINE NEGATIVE (NEGATIVE); COLOR,URINE DARK RED (YELLOW); GLUCOSE, URINE (UA) TRACE mg/dL (NEGATIVE); KETONES,URINE NEGATIVE (NEGATIVE); LEUKOCYTE ESTERASE ,URINE NEGATIVE (NEGATIVE); NITRATE,URINE NEGATIVE (NEGATIVE); OCCULT BLOOD,URINE LARGE (NEGATIVE); PH,URINE 8.5 (5.0-8.0); PROTEIN,URINE 300-600,SEE CONFIRM mg/dL (NEGATIVE); SPECIFIC GRAVITIY, URINE 1.009 (1.003-1.030); UROBILINOGEN,URINE <=1.0 mg/dL (<=1.0)
[2025-03-24 21:23] LABS: RBC,URINE Full Field /HPF (0-2)
[2025-03-24 21:24] LABS: BACTERIA,URINE Few /HPF (None Seen); SQUAMOUS EPITHELIAL CELL,UR Few /LPF (None Seen); SULFOSALICYLIC ACID,URINE 1+ (Negative)
[2025-03-25] MEDS ORDERED: FAMOTIDINE 20 MG/2 ML VIAL ONE (19:03)
== END 2025-03-24 22:45 | disposition home or self-care (01) ==
LOC: EMS 19:09
DX: T78.49XA Other allergy, initial encounter (principal); I12.0 Hypertensive chronic kidney disease with stage 5 chronic kidney disease or end stage renal disease; N18.6 End stage renal disease; Z99.2 Dependence on renal dialysis; Z90.49 Acquired absence of other specified parts of digestive tract; Z88.5 Allergy status to narcotic agent; Z79.82 Long term (current) use of aspirin; Z79.899 Other long term (current) drug therapy; X58.XXXA Exposure to other specified factors, initial encounter
CPT/HCPCS: 81001; 81002; 99283; J3490

== ENCOUNTER 2025-06-03 18:19 | Inpatient (IN) | payer MEDICARE, OTHER ==
[~2025-06-03] VITALS: Ht 170.2 cm; Wt 81.3 kg
[2025-06-03 19:21] LABS: PLATELET COUNT (AUTO) 77 K/uL (150-450); RED BLOOD CELL COUNT(AUTO) 3.42 MIL/uL (4.00-5.20); RED CELL DISTRIBUTION WIDTH 17.3 % (11.5-14.5); WHITE BLOOD COUNT (AUTO) 2.5 K/uL (4.5-11.0)
[2025-06-03 19:22] LABS: CALCIUM, TOTAL 8.7 mg/dL (8.8-10.5); CREATININE 8.16 mg/dL (0.60-1.30); GLOMERULAR FILTR. RATE CALC 5 mL/min (>60); GLUCOSE,RANDOM 129 mg/dL (70-110); SODIUM SERUM 136 mmol/L (136-145); UREA NITROGEN, BLOOD 35 mg/dL (7-18)
[2025-06-03 19:32] LABS: ASPARTATE AMINOTRANSFERASE 20.0 U/L (15-37); CREATINE KINASE, TOTAL ONLY 60.0 U/L (26-192); TOTAL PROTEIN, SERUM 6.7 g/dL (6.4-8.2)
[2025-06-03 19:50] LABS: TROPONIN I-HIGH SENSITIVITY 55 ng/L (<51)
[2025-06-03] MEDS ORDERED: ONDANSETRON HCL 4 MG/2 ML VIAL IVP PRN (21:45)
[2025-06-03] MEDS ORDERED: ZOLPIDEM TARTRATE 5 MG TABLET PO PRN (21:45)
[2025-06-03] MEDS: LOSARTAN POTASSIUM 50 MG TABLET PO SCH (22:13)
[2025-06-03] MEDS: HEPARIN SODIUM,PORCINE 5,000 UNITS/ML VIAL SQ SCH (23:08)
[2025-06-04] VITALS (13 sets, daily range): BP systolic 149–220; BP diastolic 68–105; PULSE 51–61; RESP 18–20; TEMP 97.9–98.4; O2SAT 94–98
[2025-06-04 00:19] LABS: COVID AG,FIA SOURCE NASAL SWAB
[2025-06-04 00:57] LABS: INFLUENZA TYPE A NEGATIVE FOR TYPE A (NEGATIVE); INFLUENZA TYPE B NEGATIVE FOR TYPE B (NEGATIVE); SARS-COV2 (COVID) ANTIGEN,FIA Negative (Negative)
[2025-06-04] MEDS: FAMOTIDINE 20 MG TABLET PO SCH (09:26)
[2025-06-04] MEDS: DOCUSATE SODIUM 100 MG CAPSULE PO SCH (09:26)
[2025-06-04] MEDS: EPOETIN ALFA 10,000 UNITS/ML VIAL SQ SCH (09:27)
[2025-06-04] MEDS: ISOSORBIDE MONONITRATE 30 MG ER TABLET PO SCH (23:51)
[2025-06-05] VITALS (17 sets, daily range): BP systolic 129–214; BP diastolic 60–110; PULSE 60–80; RESP 16–18; TEMP 97.9–99; O2SAT 94–99
[2025-06-05] MEDS: ISOSORBIDE MONONITRATE 30 MG ER TABLET PO ONE (05:38)
[2025-06-05 06:47] LABS: PLATELET COUNT (AUTO) 73 K/uL (150-450); RED BLOOD CELL COUNT(AUTO) 3.63 MIL/uL (4.00-5.20); RED CELL DISTRIBUTION WIDTH 17.3 % (11.5-14.5); WHITE BLOOD COUNT (AUTO) 3.4 K/uL (4.5-11.0)
[2025-06-05 07:04] LABS: CALCIUM, TOTAL 8.7 mg/dL (8.8-10.5); CREATININE 6.12 mg/dL (0.60-1.30); GLOMERULAR FILTR. RATE CALC 7.0 mL/min (>60); GLUCOSE,RANDOM 88.0 mg/dL (70-110); SODIUM SERUM 137.0 mmol/L (136-145); UREA NITROGEN, BLOOD 21.0 mg/dL (7-18)
[2025-06-05] MEDS ORDERED: SODIUM CHLORIDE 0.9% 1,000 ML ONE (15:13)
[2025-06-05 15:27] LABS: TROPONIN I-HIGH SENSITIVITY 50 ng/L (<51)
[2025-06-05] MEDS: ISOSORBIDE MONONITRATE 30 MG ER TABLET PO SCH (20:50)
[2025-06-06] VITALS (7 sets, daily range): BP systolic 178–247; BP diastolic 86–113; PULSE 63–70; RESP 18–20; TEMP 98.4–99.3; O2SAT 97–99
[2025-06-06] MEDS: ACETAMINOPHEN 325 MG TABLET PO PRN (04:54)
[2025-06-06 07:51] LABS: PLATELET COUNT (AUTO) 69 K/uL (150-450); RED BLOOD CELL COUNT(AUTO) 3.64 MIL/uL (4.00-5.20); RED CELL DISTRIBUTION WIDTH 16.9 % (11.5-14.5); WHITE BLOOD COUNT (AUTO) 2.9 K/uL (4.5-11.0)
[2025-06-06 08:00] LABS: CALCIUM, TOTAL 8.8 mg/dL (8.8-10.5); CREATININE 5.15 mg/dL (0.60-1.30); GLOMERULAR FILTR. RATE CALC 9.0 mL/min (>60); GLUCOSE,RANDOM 83.0 mg/dL (70-110); SODIUM SERUM 137.0 mmol/L (136-145); UREA NITROGEN, BLOOD 15.0 mg/dL (7-18)
[2025-06-07] VITALS (13 sets, daily range): BP systolic 156–206; BP diastolic 64–95; PULSE 61–84; RESP 18–20; TEMP 98–98.8; O2SAT 97–98
[2025-06-07] MEDS ORDERED: LIDOCAINE/PF 1% 2 ML VIAL CAUDAL ONE (07:49)
[2025-06-07] MEDS: ISOSORBIDE MONONITRATE 30 MG ER TABLET PO SCH (08:52)
[2025-06-07] MEDS ORDERED: LIDOCAINE/PF 1% 2 ML VIAL ONE (09:57)
[2025-06-07] MEDS ORDERED: SODIUM CHLORIDE 0.9% 1,000 ML ONE (12:10)
[2025-06-07] MEDS: LIDOCAINE/PF 1% 2 ML VIAL ID PRN (16:26)
[2025-06-08 01:14] VITALS: BP 206/84; PULSE 71; RESP 20; TEMP 98.4; O2SAT 100
[2025-06-08 06:54] VITALS: BP 201/87; PULSE 70; RESP 20; TEMP 98.4; O2SAT 99
[2025-06-08 07:59] VITALS: BP 150/94; PULSE 77; RESP 18; TEMP 98; O2SAT 99
[2025-06-08 11:57] VITALS: BP 175/87; PULSE 75; RESP 18; TEMP 98; O2SAT 98
[2025-06-08 15:15] VITALS: BP 183/77; PULSE 73; RESP 18; TEMP 98.3; O2SAT 98
[2025-06-08 20:00] VITALS: BP 161/88; PULSE 75; RESP 16; TEMP 98.2; O2SAT 98
[2025-06-09] VITALS (13 sets, daily range): BP systolic 138–206; BP diastolic 72–97; PULSE 68–80; RESP 15–19; TEMP 97.2–98.2; O2SAT 96–99
[2025-06-09 08:23] LABS: PLATELET COUNT (AUTO) 74 K/uL (150-450); RED BLOOD CELL COUNT(AUTO) 4.03 MIL/uL (4.00-5.20); RED CELL DISTRIBUTION WIDTH 16.8 % (11.5-14.5); WHITE BLOOD COUNT (AUTO) 3.1 K/uL (4.5-11.0)
[2025-06-09 08:39] LABS: CALCIUM, TOTAL 9.3 mg/dL (8.8-10.5); CREATININE 7.57 mg/dL (0.60-1.30); GLOMERULAR FILTR. RATE CALC 6.0 mL/min (>60); GLUCOSE,RANDOM 130.0 mg/dL (70-110); SODIUM SERUM 139.0 mmol/L (136-145); UREA NITROGEN, BLOOD 26.0 mg/dL (7-18)
[2025-06-10 00:16] VITALS: BP 183/81; PULSE 75; RESP 20; TEMP 97.7; O2SAT 98
[2025-06-10 01:45] VITALS: BP 176/76; PULSE 72
[2025-06-10 05:25] VITALS: BP 170/76; PULSE 60; RESP 18; TEMP 97.9; O2SAT 98
[2025-06-10 06:52] VITALS: BP 164/91; RESP 20
[2025-06-10 08:00] VITALS: BP 166/90; PULSE 68; RESP 16; TEMP 97.9; O2SAT 98
[2025-06-10 11:54] VITALS: BP 152/95; PULSE 69; RESP 18; TEMP 98; O2SAT 95
== END 2025-06-10 13:05 | disposition home or self-care (01) | DRG 304 ==
LOC: EMS 18:19 → EDH 21:33 → 5S 06-04 03:55
PROVIDERS: ADMIT Internal Medicine; ATTEND Internal Medicine
PROC: 5A1D70Z Performance of Urinary Filtration, Intermittent, Less than 6 Hours Per Day (ICD-10-PCS; principal; 2025-06-03)
PROC: 5A1D70Z Performance of Urinary Filtration, Intermittent, Less than 6 Hours Per Day (ICD-10-PCS; 2025-06-04)
PROC: 5A1D70Z Performance of Urinary Filtration, Intermittent, Less than 6 Hours Per Day (ICD-10-PCS; 2025-06-07)
PROC: 5A1D70Z Performance of Urinary Filtration, Intermittent, Less than 6 Hours Per Day (ICD-10-PCS; 2025-06-09)
DX: I16.1 Hypertensive emergency (principal); N18.6 End stage renal disease; Q61.3 Polycystic kidney, unspecified; N25.81 Secondary hyperparathyroidism of renal origin; R64 Cachexia; E46 Unspecified protein-calorie malnutrition; E87.5 Hyperkalemia; I12.0 Hypertensive chronic kidney disease with stage 5 chronic kidney disease or end stage renal disease; E11.22 Type 2 diabetes mellitus with diabetic chronic kidney disease; Z99.2 Dependence on renal dialysis; D63.1 Anemia in chronic kidney disease; Z68.28 Body mass index [BMI] 28.0-28.9, adult; F41.9 Anxiety disorder, unspecified; R62.7 Adult failure to thrive; G89.4 Chronic pain syndrome; E88.09 Other disorders of plasma-protein metabolism, not elsewhere classified; E83.51 Hypocalcemia; S20.211A Contusion of right front wall of thorax, initial encounter; E83.39 Other disorders of phosphorus metabolism; G47.00 Insomnia, unspecified; L50.9 Urticaria, unspecified; Z78.9 Other specified health status; X58.XXXA Exposure to other specified factors, initial encounter; Z88.5 Allergy status to narcotic agent; Y93.89 Activity, other specified; Y92.89 Other specified places as the place of occurrence of the external cause; Y99.8 Other external cause status
CPT/HCPCS: 70450; 71045; 71250; 72125; 80048; 80076; 82550; 83880; 84484; 85025; 85610; 85730; 87081; 87340; 87804; 90935; 93005; 96372; 96374; 96375; 99285; G0378; J0360; J0885; J1171; J1200; J1644; J3490; J7030; 36415-L1; 36415-TC